=== PATIENT | male | born 1955 | race Caucasian/White ===

== ENCOUNTER 2022-04-20 01:53 | Inpatient (IN) | payer BC, OTHER ==
[~2022-04-20] VITALS: Ht 189.2 cm; Wt 89.7 kg
[2022-04-20] MEDS ORDERED: SODIUM CHLORIDE 0.9% 1,000 ML IV ONE ×2 (02:30)
[2022-04-20] MEDS ORDERED: THIAMINE 100mg/ml INJ (200mg/2ml VIAL) IV ONE (02:30)
[2022-04-20 03:06] LABS: Basophils # (auto) 0 10 ^3/uL (0-0.2); Basophils % (auto) 0.1 % (0.0-2.0); Eosinophils # (auto) 0 10 ^3/uL (0-0.8); Neutrophils # (auto) 10.7 10 ^3/uL (1.6-8.6); Red Cell Distribution Width 15.1 % (11.8-14.3); White Blood Cell 12.1 10^3/uL (4.4-10.8)
[2022-04-20 03:08] LABS: Eosinophils % (auto) 0.2 % (0.0-7.0); Hematocrit 44.5 % (41.0-53.0); Hemoglobin 13.8 g/dL (13.5-17.5); Lymphocytes # (auto) 0.4 10 ^3/uL (0.4-5.4); Lymphocytes % (auto) 3.7 % (10.0-50.0); Mean Corpuscular Hemoglobin 34.3 pg (28.0-32.0); Mean Corpuscular Hgb Conc. 31.1 g/dL (32.0-36.0); Mean Corpuscular Volume 110.1 fL (80.0-100.0); Monocytes # (auto) 0.9 10 ^3/uL (0-1.3); Monocytes % (auto) 7.4 % (0.0-12.0); Neutrophils % (auto) 88.6 % (37.0-80.0); Red Blood Cells 4.04 10^6/uL (4.5-5.90)
[2022-04-20 03:15] LABS: Alanine Aminotransferase 26 U/L (16-61); Albumin 3.4 g/dL (3.4-5.0); Anion Gap 17 (5-15); Aspartate Aminotransferase 30 U/L (15-37); BUN/Creatinine Ratio 15.1; Blood Urea Nitrogen 14 mg/dL (7-18); Calcium 8.4 mg/dL (8.5-10.1); Carbon Dioxide 19 mmol/L (21-32); Chloride 103 mmol/L (98-107); GFR African American 105 mL/min; GFR Non-African American 86 mL/min; Glucose 264 mg/dL (74-106); INR 0.9 (0.9-1.15); Partial Thromboplastin Time 27.6 sec (24.6-33.4); Potassium 3.7 mmol/L (3.5-5.1); Sodium 139 mmol/L (136-145)
[2022-04-20 03:18] LABS: Alkaline Phosphatase 79 U/L (45-117); Bilirubin, Total 0.4 mg/dL (0.2-1.0); Total Protein 6.3 g/dL (6.4-8.2)
[2022-04-20] MEDS ORDERED: HYDROmorphone HCL 2 MG/ML VL/or syr IV ONE (08:15)
[2022-04-20] MEDS ORDERED: PROMETHAZINE HCL 25 MG/ML 1ML IV ONE (08:15)
[2022-04-20 10:46] LABS: Basophils # (auto) 0 10 ^3/uL (0-0.2); Basophils % (auto) 0.2 % (0.0-2.0); Eosinophils # (auto) 0 10 ^3/uL (0-0.8); Eosinophils % (auto) 0.1 % (0.0-7.0); Hematocrit 40.5 % (41.0-53.0); Hemoglobin 13.5 g/dL (13.5-17.5); Lymphocytes # (auto) 0.5 10 ^3/uL (0.4-5.4); Mean Corpuscular Hemoglobin 35.6 pg (28.0-32.0); Mean Corpuscular Hgb Conc. 33.4 g/dL (32.0-36.0); Mean Corpuscular Volume 106.3 fL (80.0-100.0); Monocytes # (auto) 0.8 10 ^3/uL (0-1.3); Monocytes % (auto) 9.8 % (0.0-12.0); Neutrophils % (auto) 83.9 % (37.0-80.0); Nucleated Red Blood Cells % 0.1 %; Red Blood Cells 3.81 10^6/uL (4.5-5.90); Red Cell Distribution Width 14.7 % (11.8-14.3); White Blood Cell 8.3 10^3/uL (4.4-10.8)
[2022-04-20 11:00] LABS: BUN/Creatinine Ratio 17.1; Calcium 8.2 mg/dL (8.5-10.1); Potassium 4.3 mmol/L (3.5-5.1)
[2022-04-20] MEDS ORDERED: LEV25T (11:12)
[2022-04-20] MEDS ORDERED: OMEP-260 PO (11:12)
[2022-04-20] MEDS ORDERED: INSUINJ37 SC (11:12)
[2022-04-20] MEDS ORDERED: LOS25T PO (11:12)
[2022-04-20] MEDS ORDERED: DEXTROSE (50%) 50ML SYRG IV PRN (11:45)
[2022-04-20] MEDS: LACTATED RINGER'S 1,000 ML IV SCH (12:07)
[2022-04-20] MEDS: ACCU-CHEK COMFORT CURVE STRIP VI SCH ×3 (12:12→23:39)
[2022-04-20] MEDS: InsuLIN REG 1unit/0.01ml Soln (100units/ml) SC SCH ×3 (12:27→23:42)
[2022-04-20 12:53] LABS: Blood Alcohol < 3.0 mg/dL (0-5); Cholesterol 207 mg/dL (< 200); Triglycerides 69 mg/dL (< 150)
[2022-04-20 12:55] LABS: HDL Cholesterol 115 mg/dL (40-59); LDL Cholesterol 81 mg/dL (< 100)
[2022-04-20] MEDS ORDERED: LEVO112T4 PO (13:16)
[2022-04-20] MEDS ORDERED: ceFAZolin 1GM/50ML 100 ML IV ONE ×2 (14:23→22:08)
[2022-04-20] MEDS: hydrALAZINE HCL 20 MG/ML VL IV PRN ×2 (14:25→23:35)
[2022-04-20] MEDS ORDERED: SUCCINYLCHOLINE CHLORIDE 20 MG/ML 10ML VIAL IV ONE (15:57)
[2022-04-20] MEDS ORDERED: TRANEXAMIC ACID 20 ML ONE (16:08)
[2022-04-20] MEDS ORDERED: BUPIVACAINE 0.5% P/F INJ 10 ML VIAL ONE (16:08)
[2022-04-20] MEDS ORDERED: LABETALOL HCL 5 MG/ML ML 20ML VIAL IV ONE (16:32)
[2022-04-20] MEDS ORDERED: CALCIUM CHL(10%) 100MG/ML 10ML VIAL IV ONE (17:43)
[2022-04-20] MEDS ORDERED: ALBUMIN 5% 500 ML IV ONE (17:48)
[2022-04-20] MEDS ORDERED: fentaNYL CITRATE 100 MCG/2 ML VL ONE ×3 (18:04→18:28)
[2022-04-20] MEDS ORDERED: MIDAZOLAM HCL 2MG/2ML 2ml VIAL (1mg/ml) ONE (18:04)
[2022-04-20] MEDS ORDERED: ROCURONIUM 10MG/ML 10ML VIAL IV ONE (18:08)
[2022-04-20] MEDS ORDERED: PROPOFOL 10 MG/ML 20 ML IV ONE (18:08)
[2022-04-20] MEDS ORDERED: ONDANSETRON HCL 4 MG/2 ML VIAL ONE (18:15)
[2022-04-20] MEDS ORDERED: NEOSTIGMINE 1 MG/ML INJ (10mg/10ML VIAL) ONE (18:27)
[2022-04-20] MEDS ORDERED: GLYCOPYRROLATE 0.2 MG/ML 1ML VIAL ONE (18:27)
[2022-04-20] MEDS ORDERED: LABETALOL HCL 5 MG/ML 4ML SYRINGE IV ONE (18:54)
[2022-04-20] MEDS ORDERED: METOCLOPRAMIDE HCL 5MG/ml INJ 2ml VIAL IV PRN (19:00)
[2022-04-20] MEDS ORDERED: HYDROmorphone HCL 2 MG/ML VL/or syr IV PRN ×2 (19:00)
[2022-04-20] MEDS: LABETALOL HCL 5 MG/ML 4ML SYRINGE IV PRN ×2 (19:08→19:23)
[2022-04-20 21:48] VITALS: BP 178/84
[2022-04-20] MEDS: ceFAZolin 2 GM in D5W 5% 100 ML IV SCH (22:21)
[2022-04-20] MEDS: LOSARTAN POTASSIUM 25 MG TAB PO SCH (22:21)
[2022-04-20] MEDS ORDERED: ALEN70TA74 PO (22:26)
[2022-04-20] MEDS: PIPERACILLIN-TAZOB 3.375GM 100 ML IV SCH (23:35)
[2022-04-21] MEDS: MORPHINE SULFATE INJ 2 MG/ml SYRG IV PRN ×2 (01:35→21:07)
[2022-04-21] MEDS: HYDROcodone-ACET 5/325MG TAB PO PRN ×3 (03:04→17:23)
[2022-04-21 04:44] VITALS: BP 148/74
[2022-04-21] MEDS ORDERED: ceFAZolin 1GM/50ML 100 ML IV ONE (05:19)
[2022-04-21] MEDS: ceFAZolin 2 GM in D5W 5% 100 ML IV SCH (05:28)
[2022-04-21] MEDS: LACTATED RINGER'S 1,000 ML IV SCH ×2 (05:44→07:45)
[2022-04-21] MEDS: ACCU-CHEK COMFORT CURVE STRIP VI SCH ×3 (06:10→17:22)
[2022-04-21] MEDS: PIPERACILLIN-TAZOB 3.375GM 100 ML IV SCH ×3 (06:47→21:06)
[2022-04-21] MEDS: InsuLIN REG 1unit/0.01ml Soln (100units/ml) SC SCH ×3 (06:47→17:22)
[2022-04-21 07:34] LABS: Basophils # (auto) 0 10 ^3/uL (0-0.2); Basophils % (auto) 0.1 % (0.0-2.0); Eosinophils # (auto) 0 10 ^3/uL (0-0.8); Lymphocytes # (auto) 0.8 10 ^3/uL (0.4-5.4); Monocytes # (auto) 0.9 10 ^3/uL (0-1.3); Neutrophils # (auto) 8.5 10 ^3/uL (1.6-8.6)
[2022-04-21 07:38] LABS: Eosinophils % (auto) 0.1 % (0.0-7.0); Hematocrit 35.3 % (41.0-53.0); Hemoglobin 11.5 g/dL (13.5-17.5); Lymphocytes % (auto) 7.5 % (10.0-50.0); Mean Corpuscular Hemoglobin 35.1 pg (28.0-32.0); Mean Corpuscular Hgb Conc. 32.7 g/dL (32.0-36.0); Mean Corpuscular Volume 107.2 fL (80.0-100.0); Monocytes % (auto) 8.8 % (0.0-12.0); Neutrophils % (auto) 83.5 % (37.0-80.0); Nucleated Red Blood Cells % 0.1 %; Red Blood Cells 3.29 10^6/uL (4.5-5.90); Red Cell Distribution Width 14.6 % (11.8-14.3); White Blood Cell 10.1 10^3/uL (4.4-10.8)
[2022-04-21 07:42] LABS: Calcium 8.5 mg/dL (8.5-10.1); Potassium 4.4 mmol/L (3.5-5.1)
[2022-04-21 07:45] LABS: BUN/Creatinine Ratio 13.3
[2022-04-21 07:48] LABS: Bilirubin, Total 0.7 mg/dL (0.2-1.0); Total Protein 5.8 g/dL (6.4-8.2)
[2022-04-21 08:23] VITALS: BP 138/81
[2022-04-21] MEDS: LOSARTAN POTASSIUM 25 MG TAB PO SCH ×2 (08:32→21:06)
[2022-04-21] MEDS: THIAMINE HCL 100 MG TAB PO SCH (08:32)
[2022-04-21] MEDS: PANTOPRAZOLE 40 MG/10 ML VIAL INJ IV SCH (08:32)
[2022-04-21] MEDS: ENOXAPARIN SOD 40 MG/0.4 ML SYRINGE SC SCH (08:32)
[2022-04-21 12:23] VITALS: BP 164/81
[2022-04-21] MEDS: hydrALAZINE HCL 20 MG/ML VL IV PRN (12:43)
[2022-04-21] MEDS ORDERED: ceFAZolin 2 GM in D5W 5% 100 ML IV SCH (14:00)
[2022-04-21] MEDS ORDERED: INSULIN LANTUS (GLARGINE) 1 /0.01ml (100units/ml) SC ONE (15:30)
[2022-04-21 16:54] VITALS: BP 146/72
[2022-04-21 21:41] VITALS: BP 129/78
[2022-04-22] MEDS: ACCU-CHEK COMFORT CURVE STRIP VI SCH ×3 (00:18→12:06)
[2022-04-22] MEDS: HYDROcodone-ACET 5/325MG TAB PO PRN ×2 (00:18→06:30)
[2022-04-22] MEDS: InsuLIN REG 1unit/0.01ml Soln (100units/ml) SC SCH ×3 (00:22→12:06)
[2022-04-22 05:00] VITALS: BP 157/78
[2022-04-22] MEDS: PIPERACILLIN-TAZOB 3.375GM 100 ML IV SCH (06:30)
[2022-04-22] MEDS ORDERED: INSULIN LANTUS (GLARGINE) 1 /0.01ml (100units/ml) SC SCH (07:00)
[2022-04-22] MEDS: THIAMINE HCL 100 MG TAB PO SCH (08:33)
[2022-04-22] MEDS: PANTOPRAZOLE 40 MG/10 ML VIAL INJ IV SCH (08:34)
[2022-04-22] MEDS: ENOXAPARIN SOD 40 MG/0.4 ML SYRINGE SC SCH (08:34)
[2022-04-22] MEDS: LOSARTAN POTASSIUM 25 MG TAB PO SCH (08:34)
[2022-04-22 09:06] VITALS: BP 146/71
[2022-04-22] MEDS: MORPHINE SULFATE INJ 2 MG/ml SYRG IV PRN (10:49)
[2022-04-22 12:16] VITALS: BP 146/71
[2022-04-22 12:55] VITALS: BP 146/76
== END 2022-04-22 17:07 | DRG 482 ==
LOC: ER 01:53 → EDUNIT# 01:53 → EDBD 01:53 → OVERFLOW 11:34 → EAST 19:00
PROVIDERS: ADMIT Registered Nurse; ATTEND Internal Medicine
PROC: BQ13ZZZ Fluoroscopy of Right Femur (ICD-10-PCS; 2022-04-20)
PROC: 0QS636Z Reposition Right Upper Femur with Intramedullary Internal Fixation Device, Percutaneous Approach (ICD-10-PCS; principal; 2022-04-20 16:15)
DX: S72.141A Displaced intertrochanteric fracture of right femur, initial encounter for closed fracture (principal); E11.65 Type 2 diabetes mellitus with hyperglycemia; Z20.822 Contact with and (suspected) exposure to COVID-19; F10.20 Alcohol dependence, uncomplicated; W18.09XA Striking against other object with subsequent fall, initial encounter; F12.20 Cannabis dependence, uncomplicated; K21.9 Gastro-esophageal reflux disease without esophagitis; M81.0 Age-related osteoporosis without current pathological fracture; I10 Essential (primary) hypertension; K27.9 Peptic ulcer, site unspecified, unspecified as acute or chronic, without hemorrhage or perforation; E03.9 Hypothyroidism, unspecified; Z83.3 Family history of diabetes mellitus; Z87.11 Personal history of peptic ulcer disease; Z82.49 Family history of ischemic heart disease and other diseases of the circulatory system; Z98.1 Arthrodesis status; Y93.89 Activity, other specified; Y92.098 Other place in other non-institutional residence as the place of occurrence of the external cause; Y99.8 Other external cause status
CPT/HCPCS: 36415; 71045; 72170; 72192; 73501; 76000; 80048; 80053; 80061; 80320; 82962; 83036; 84443; 84484; 85025; 85610; 85730; 87426; 93005; 96361; 96374; 96375; 97110; 97116; 97163; 97530; C9113; G0378; J0330; J0690; J1815; J2250; J2405; J2543; J2704; J3490; J7060

== ENCOUNTER 2024-05-24 11:28 | Inpatient (IN) | payer OTHER, MEDICAID ==
[~2024-05-24] VITALS: Ht 190.5 cm; Wt 81.6 kg
[2024-05-24] VITALS (22 sets, daily range): BP systolic 100–123; BP diastolic 45–66; PULSE 58–88; RESP 10–23; TEMP 99; O2SAT 95–99
[~2024-05-24 11:28] MED LIST: ALEN70TA74 PO; INSUINJ37 SC; LEV25T; LEVO112T4 PO; OMEP1CAP70 PO
--- NOTE | 2024-05-24 11:36 | ED.PDOC ---
History of present illness HPI Comments 69 year old male PRINCE presents to the ED with chief complaint of generalized weakness w/ N/V. EMS reports patient has been experiencing nausea and vomiting with associated generalized weakness since yesterday. EMS relays that the patient was found to have a blood glucose level of over 600 on his at home gluc ometer and it read "high" on their own. EMS states patient has been complaining of excess thirst and appears dehydrated. Patient's heart rate was noted to be 115 and had a BP of 162/74. Patient denies any diarrhea, chest pain, SOB, dizziness, fever, or chills. 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, Medications, Allergies Allergies: Coded Allergies: NO KNOWN ALLERGIES (Unverified , 02/02/14) Home Meds Reported Medications Alendronate Sodium (Alendronate Sodium) 70 Mg Tab, 1 TAB PO QWEEKLY, #4 TAB 3 Refills 04/20/22 Levothyroxine Sodium (Levothyroxine Sodium) 112 Mcg Tab, 125 MCG PO DAILY 04/20/22 Levothyroxine Sodium (Levothyroxine Sodium) 25 Mcg Tab 04/20/22 Insulin Glargine (Lantus Solostar) 100 Unit/Ml Inj, SC 04/20/22 Omeprazole (Omeprazole Dr) 20 Mg Cap, 1 CAP PO DAILYPRN 04/20/22 Information Source: Patient, Emergency Med Personnel Mode of Arrival: EMS Timing: Days Duration: Since onset Prehospital treatment: Accucheck, IVF Cove: Other (Weakness) History of: Diabetes, Insulin use Past Medical History PAST MEDICAL HISTORY: Arthritis, DM, HTN, PUD Surgical History: Denies all surgeries Family History Family History: No family hx of DM, No family hx of Heart kenan Social History Smoker: Non-Smoker Alcohol: Denies ETOH Use Drugs: Marijuana Lives In: Home Constitutional: reports: weakness; denies: chills, diaphoresis, fatigue, fever, malaise, sweats, others EENTM: denies: blurred vision, double vision, ear bleeding, ear discharge, ear drainage, ear pain, ear ringing, eye pain, eye redness, hearing loss, mouth pain, mouth swelling, nasal discharge, nose bleeding, nose congestion, nose pain, photophobia, tearing, throat pain, throat swelling, voice changes, others Respiratory: denies: cough, hemoptysis, orthopnea, SOB at rest, shortness of breath, SOB with excertion, stridor, wheezing, others Cardiovascular: denies: chest pain, dizzy spells, diaphoresis, Dyspnea on exertion, edema, irregular heart beat, left arm pain, lightheadedness, palpitations, PND, syncope, others Gastrointestinal: reports: nausea, vomiting; denies: abdomen distended, abdominal pain, blood streaked bowels, constipated, diarrhea, dysphagia, difficulty swallowing, hematemesis, melena, poor appetite, poor fluid intake, rectal bleeding, rectal pain, others Genitourinary: denies: burning, dysuria, flank pain, frequency, hematuria, incontinence, penile discharge, penile sore, pain, testicle pain, testicle swelling, urgency, others Neurological: denies: dizziness, fainting, headache, left sided numbness, left sided weakness, numbness, paresthesia, pre-existing deficit, right sided numbness, right sided weakness, seizure, speech problems, tingling, tremors, weakness, others Musculoskeletal: denies: back pain, gout, joint pain, joint swelling, muscle pain, muscle stiffness, neck pain, others Integumetry: denies: bruises, change in color, change in hair/nails, dryness, laceration, lesions, lumps, rash, wounds, others Allergic/Immunocompromised: denies: Difficulty Healing, Frequent Infections, Hives, Itching, others Hematologic/Lymphatic: denies: anemia, blood clots, easy bleeding, easy bruising, swollen glands, others Endocrine: denies: excessive hunger, excessive sweating, excessive thirst, excessive urination, flushing, intolerance to cold, intolerance to heat, unexplained weight gain, unexplained weight loss, others Psychiatric: denies: anxiety, bipolar disorder, depression, hopeless, panic disorder, schizophrenia, sleepless, suicidal, others All Other Systems: Reviewed and Negative Physical Exam General Appearance: Moderate Distress, Normal HEENT: Normal ENT Inspection, PERRL/EOMI Neck: Full Range of Motion, Non-Tender, Normal, Normal Inspection Respiratory: Accessory Muscle Use, Chest Non-Tender, No Accessory Muscle Use Cardiovascular: No Edema, No JVD, No Murmur, No Gallop, Normal Peripheral Pulses, Tachycardia Breast Exam: Deferred Gastrointestinal: No Organomegaly, Non Tender, No Pulsatile Mass, Normal Bowel Sounds, Soft Genitalia: Deferred Pelvic: Deferred Rectal: Deferred Extremities: No calf tenderness, Normal capillary refill, Normal inspection, Normal range of motion, Non-tender, No pedal edema Musculoskeletal : Apperance: Normal Neurologic: Alert, house wirer II-XII nml as Tested, No Motor Deficits, Normal Affect, Normal Mood, No Sensory Deficits Cerebellar Function: NOT DONE Reflexes: NOT DONE Skin: Dry, Normal Color, Warm Peripheral Pulses: 3+ Radial (R), 3+ Radial (L) Lymphatic: No Adenopathy Was a procedure done? Was a procedure done?: No Differential Diagnosis (DM) Differential Diagnosis: DKA, Electrolyte Abnormality X-Ray, Labs, Meds, VS Vital Signs Date Time Temp Pulse Resp B/P (MAP) Pulse Ox O2 Delivery O2 Flow Rate FiO2 05/24/24 11:33 113 Lab Test 05/24/24 12:11 05/24/24 11:59 Range/Units POC Glucose > 600 *H 70-106 mg/dl White Blood Count 27.2 H 4.4-10.8 10^3/uL Red Blood Count 3.98 L 4.5-5.90 10^6/uL Hemoglobin 12.8 L 13.5-17.5 g/dL Hematocrit 42.4 41.0-53.0 % Mean Corpuscular Volume 106.6 H 80.0-100.0 fL Mean Corpuscular Hemoglobin 32.2 H 28.0-32.0 pg Mean Corpuscular Hemoglobin Concent 30.2 L 32.0-36.0 g/dL Red Cell Distribution Width 15.3 H 11.8-14.3 % Platelet Count 380 140-450 10^3/uL Mean Platelet Volume 7.1 6.9-10.8 fL Neutrophils (%) (Auto) 37.0-80.0 % Lymphocytes (%) (Auto) 10.0-50.0 % Monocytes (%) (Auto) 0.0-12.0 % Basophils (%) (Auto) 0.0-2.0 % Neutrophils # (Auto) 1.6-8.6 10 ^3/uL Lymphocytes # (Auto) 0.4-5.4 10 ^3/uL Monocytes # (Auto) 0-1.3 10 ^3/uL Differential Total Cells Counted Pending Neutrophils % (Manual) Pending Band Neutrophils % (Manual) Pending Lymphocytes % (Manual) Pending Monocytes % (Manual) Pending Eosinophils % (Manual) Pending Basophils % (Manual) Pending Metamyelocytes % (manual) Pending Myelocytes % (Manual) Pending Promyelocytes % (Manual) Pending Blast Cells % (Manual) Pending Reactive Lymphocytes Pending Platelet Estimate Pending Sodium Level Pending Potassium Level Pending Chloride Level Pending Carbon Dioxide Level Pending Anion Gap Pending Blood Urea Nitrogen Pending Creatinine Pending Glomerular Filtration Rate Calc Pending BUN/Creatinine Ratio Pending Serum Glucose Pending Calcium Level Pending Troponin I High Sensitivity Pending Beta-Hydroxybutyric Acid Pending Current Medications Medications (Trade) Dose Ordered Sig/Sukhdev Route Start Time Stop Time Status Last Admin Diagnostic Test (Pha) (Accu-Chek Comfort Curve T) 1 strip Q90MIN 05/24/24 12:00 05/24/24 12:12 Patient alert. Increased respiration. Blood sugar high. Tachycardia. WBC elevated. Establish intravenous access. Was given fluids. Was given insulin. DKA. ABG does show acidosis. Explained to the patient. Continue cardiac monitoring. Time of 1ST Reevaluation: 12:32 Reevaluation 1ST: Unchanged Patient Education/Counseling: Diagnosis, Treatment Family Education/Counseling: No Family Present Additional Information I reviewed the following notes from patient's past medical encounters: 04/20/22 for rt hip fracture The following tests were ordered, and results were reviewed by me: CBC, BMP, UA, I reviewed and agreed with the following test results read by other providers: Additional Information was gathered from interviewing the following independent historians: EMS I discussed treatment and results with medical personnel. Departure 1 Departure Time of Disposition: 12:26 Impression: Primary Impression: Diabetic ketoacidosis Qualified Codes: E13.10 - Other specified diabetes mellitus with ketoacidosis without coma Disposition: ADMITTED INPATIENT Admit to: Med Surg Condition: Guarded Critical Care Note Critical Care Time?: Yes (90 min-critical care time only) Stability Stability form required: No Heart Score Heart Score: Heart Score Response (Comments) Value History N/A 0 EKG N/A 0 Age N/A 0 Risk Factors N/A 0 Troponin N/A 0 Total 0 I personally scribed for IESHA WILKERSON MD ([email or web address]) on 05/24/24 at 11:36. Electronically submitted by Sgaar Mcginnis ([email or web address]). IESHA WILKERSON MD May 24, 2024 11:36
[2024-05-24] MEDS ORDERED: DEXTROSE (50%) 50ML SYRG IV PRN (11:45)
[2024-05-24] MEDS: SODIUM CHLORIDE 0.9% 1,000 ML IV ONE ×4 (11:45)
--- NOTE | 2024-05-24 11:45 | ECG ---
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
[2024-05-24] MEDS: ACCU-CHEK COMFORT CURVE STRIP VI SCH (12:12)
[2024-05-24 12:20] LABS: Hematocrit 42.4 % (41.0-53.0); Hemoglobin 12.8 g/dL (13.5-17.5); Mean Corpuscular Hemoglobin 32.2 pg (28.0-32.0); Mean Corpuscular Hgb Conc. 30.2 g/dL (32.0-36.0); Mean Corpuscular Volume 106.6 fL (80.0-100.0); Platelet Count (auto) 380 10^3/uL (140-450); Red Blood Cells 3.98 10^6/uL (4.5-5.90); Red Cell Distribution Width 15.3 % (11.8-14.3); White Blood Cell 27.2 10^3/uL (4.4-10.8)
[2024-05-24 12:23] LABS: Basophils % (manual) 0 (0.0-2.0); Blast Cells 0; Eosinophils % (manual) 0 (0-7); Metamyelocytes % 0; Myelocytes % 0; Promyelocytes % 0; Reactive Lymphocytes 0
[2024-05-24 12:32] LABS: Potassium 4.9 mmol/L (3.5-5.1)
[2024-05-24 12:33] LABS: Anion Gap 27.00001 (5-15)
[2024-05-24] MEDS: INSULIN LANTUS (GLARGINE) 1 /0.01ml (100units/ml) SC ONE (12:34)
[2024-05-24] MEDS: INSULIN DRIP 100 UNIT/100ML 100 ML IV SCH (12:34)
[2024-05-24 12:38] LABS: BUN/Creatinine Ratio 19.8 (10.0-20.0)
[2024-05-24 12:47] LABS: Blood Urea Nitrogen 61 mg/dL (9-23); Chloride 96 mmol/L (98-107); Sodium 133 mmol/L (136-145)
--- NOTE | 2024-05-24 12:47 | DVH ---
CHEST RADIOGRAPH Indication: sob Technique: Single frontal view of the chest was obtained COMPARISON: CHEST PORTABLE on DOS: 04/20/22, CXRP on DOS: 04/20/22 FINDINGS: Lines and Tubes: None Lungs: Clear Pleura: No effusion. No pneumothorax. Cardiomediastinal contours: Unremarkable Bones: Cervical spine fixation hardware. IMPRESSION: No acute disease.
[2024-05-24 12:49] LABS: Band Neutrophils % (manual) 1; Carbon Dioxide < 10 mmol/L (20-31); Lymphocytes % (manual) 2 (10.0-50.0); Monocytes % (manual) 4 (0-12); Platelet Estimate Adequate
[2024-05-24 12:50] LABS: Glucose 740 mg/dL (74-106)
[2024-05-24 13:17] LABS: Base Excess -21.2 mmol/L (-2.0-3.0)
[2024-05-24] MEDS: PIPERACILLIN-TAZOB 3.375GM 100 ML IV ONE (13:59)
[2024-05-24] MEDS ORDERED: NITROGLYCERIN 0.4 MG SL TAB SL PRN (14:00)
[2024-05-24] MEDS: SODIUM CHLORIDE 0.9% 1,000 ML IV SCH (14:00)
[2024-05-24] MEDS ORDERED: MORPHINE SULFATE INJ 2 MG/ml SYRG IV PRN (14:00)
[2024-05-24] MEDS ORDERED: DOCUSATE SOD 100 MG CAP PO PRN (14:00)
[2024-05-24] MEDS ORDERED: ACETAMINOPHEN 325 MG TAB PO PRN (14:00)
[2024-05-24] MEDS ORDERED: HYDROcodone-ACET 5/325MG TAB PO PRN (14:00)
[2024-05-24 14:17] LABS: Lactic Acid w/Reflex 3.2 mmol/L (0.4-2.0)
[2024-05-24 16:33] LABS: Urine Bacteria None Seen /hpf (None Seen); Urine Blood 1+ /uL (Negative); Urine Clarity Clear (Clear); Urine Color Light-Yellow (Yellow); Urine Hyaline Cast FEW /lpf (0 - 2); Urine Protein, UAD 1+ (Negative); Urine Specific Gravity 1.016 (1.001-1.035); Urine Squamous Epithelial Cell FEW /hpf (<5); Urine Urobilinogen Normal (Negative); Urine WBC 8 /HPF (0-3)
[2024-05-24] MEDS: ENOXAPARIN SOD 30 MG/0.3 ML SYRINGE SC SCH (18:00)
[2024-05-24] MEDS: PIPERACILLIN-TAZOB 3.375GM 100 ML IV SCH (22:07)
[2024-05-25] VITALS (31 sets, daily range): BP systolic 94–145; BP diastolic 42–69; PULSE 47–78; RESP 8–23; TEMP 97.8–99.5; O2SAT 96–100
[2024-05-25] MEDS: D5W/SOD CHL 0.45% 1,000 ML IV SCH (00:30)
[2024-05-25 01:34] LABS: Potassium 3.7 mmol/L (3.5-5.1); Sodium 140 mmol/L (136-145)
[2024-05-25 01:35] LABS: Anion Gap 12 (5-15)
[2024-05-25 01:40] LABS: BUN/Creatinine Ratio 18.3 (10.0-20.0); Glucose 106 mg/dL (74-106)
[2024-05-25 01:55] LABS: Blood Urea Nitrogen 41 mg/dL (9-23); Calcium 8.5 mg/dL (8.7-10.4); Carbon Dioxide 17 mmol/L (20-31); Chloride 111 mmol/L (98-107)
[2024-05-25 03:51] LABS: Basophils # (auto) 0 10 ^3/uL (0-0.2); Basophils % (auto) 0.3 % (0.0-2.0); Eosinophils # (auto) 0 10 ^3/uL (0-0.8); Eosinophils % (auto) 0.1 % (0.0-7.0); Hematocrit 35.2 % (41.0-53.0); Hemoglobin 11.5 g/dL (13.5-17.5); Lymphocytes # (auto) 1.3 10 ^3/uL (0.4-5.4); Lymphocytes % (auto) 8.7 % (10.0-50.0); Mean Corpuscular Hemoglobin 32.2 pg (28.0-32.0); Mean Corpuscular Hgb Conc. 32.7 g/dL (32.0-36.0); Mean Corpuscular Volume 98.5 fL (80.0-100.0); Monocytes # (auto) 0.9 10 ^3/uL (0-1.3); Monocytes % (auto) 6.2 % (0.0-12.0); Neutrophils # (auto) 12.5 10 ^3/uL (1.6-8.6); Neutrophils % (auto) 84.7 % (37.0-80.0); Nucleated Red Blood Cells % 0.2 %; Platelet Count (auto) 268 10^3/uL (140-450); Red Blood Cells 3.57 10^6/uL (4.5-5.90); Red Cell Distribution Width 13.9 % (11.8-14.3); White Blood Cell 14.8 10^3/uL (4.4-10.8)
[2024-05-25 04:08] LABS: Alanine Aminotransferase 37 U/L (7-40); Albumin 3.9 g/dL (3.2-4.8); Alkaline Phosphatase 95 U/L (46-116); Anion Gap 11 (5-15); Aspartate Aminotransferase 23 U/L (13-40); BUN/Creatinine Ratio 20.5 (10.0-20.0); Bilirubin, Total 0.5 mg/dL (0.2-1.0); Potassium 3.7 mmol/L (3.5-5.1); Sodium 141 mmol/L (136-145)
[2024-05-25 04:37] LABS: Blood Urea Nitrogen 45 mg/dL (9-23); Calcium 8.6 mg/dL (8.7-10.4); Carbon Dioxide 20 mmol/L (20-31); Chloride 110 mmol/L (98-107); Glucose 150 mg/dL (74-106); Total Protein 5.5 g/dL (5.7-8.2)
[2024-05-25 06:37] LABS: Alanine Aminotransferase 36 U/L (7-40); Albumin 3.8 g/dL (3.2-4.8); Alkaline Phosphatase 93 U/L (46-116); Anion Gap 11 (5-15); Aspartate Aminotransferase 24 U/L (13-40); BUN/Creatinine Ratio 24.9 (10.0-20.0); Bilirubin, Total 0.5 mg/dL (0.2-1.0); Sodium 141 mmol/L (136-145)
[2024-05-25 06:40] LABS: Blood Urea Nitrogen 51 mg/dL (9-23); Calcium 8.4 mg/dL (8.7-10.4); Carbon Dioxide 18 mmol/L (20-31); Chloride 112 mmol/L (98-107); Glucose 153 mg/dL (74-106); Potassium 3.4 mmol/L (3.5-5.1)
[2024-05-25] MEDS: ATROPINE SULF 1 MG/10ml SYR IV ONE (07:14)
[2024-05-25] MEDS: InsuLIN REG 1unit/0.01ml Soln (100units/ml) SC SCH (08:25)
[2024-05-25] MEDS: ACCU-CHEK COMFORT CURVE STRIP VI SCH (08:25)
[2024-05-25] MEDS: SODIUM CHLORIDE 0.9% 1,000 ML IV SCH (08:29)
[2024-05-25] MEDS: diphenhdrAMINE-ZINC ACETATE 1 APPLIC APPL TOP ONE (08:54)
[2024-05-25] MEDS: ONDANSETRON HCL 4 MG/2 ML VIAL IV PRN (09:25)
[2024-05-25] MEDS: MORPHINE SULFATE INJ 2 MG/ml SYRG IV PRN (09:39)
[2024-05-25] MEDS ORDERED: INSULIN LANTUS (GLARGINE) 1 /0.01ml (100units/ml) SC SCH ×2 (10:00→22:00)
[2024-05-25] MEDS: POTASSIUM CHL 20 Meq TABLET PO ONE (10:12)
[2024-05-25] MEDS ORDERED: POTASSIUM CHL 20 Meq TABLET PO ONE (10:13)
[2024-05-25 11:04] LABS: Phosphorus 2.4 mg/dL (2.4-5.1)
[2024-05-25 11:05] LABS: Magnesium 1.8 mg/dL (1.6-2.6)
--- NOTE | 2024-05-25 11:31 | DVHSR ---
APPROVED REPORT EXAM: Two-dimensional and M-mode echocardiogram with Doppler and color Doppler. Blood Pressure: 130/46 mmHg INDICATION Elevated troponin RISK FACTORS Height: , Weight: DIMENSIONS LVDd4.6 (3.8-5.7cm)LA (2D)3.9 (1.9-4.0cm)Aortic Root3.5 (2.0-3.7cm) LVDs3.5 (2.5-4.0cm)LA (MM) (1.9-4.0cm)Aortic Cusp Exc1.7 (1.5-2.0cm) EF (%) 50.0 (55-70%)Rt. Atrium4.1 (1.9-4.0cm)Asc. Aorta cm IVSd1.2 (0.7-1.1cm)RV (D) (1.8-2.4cm) PWd1.0 (0.7-1.1cm) Mitral Valve MitralMitral Stenosis E wave0.73m/sMV Mean GR.mmHg A wave0.80m/sMV Peak GR.mmHg E/A ratio0.92D MVAcm2 DECEL [id number] 1/2 Timems Aortic Valve Aortic ValveAortic Stenosis V10.72m/Beto Mean GR.3mmHg V21.23m/Beto Peak GR.6mmHg LVOT Diameter2.1 (1.8-2.4cm)Doppler AVA2.03cm2 Other Information Technically limited study due to body habitus and patient position. Conclusion [id number]% by visual estimate normal rv function mild enlargement normal atria no severe valve abnormalities noted
[2024-05-25 12:02] LABS: Potassium 3.9 mmol/L (3.5-5.1); Sodium 140 mmol/L (136-145)
[2024-05-25 12:03] LABS: Anion Gap 12 (5-15); Carbon Dioxide 20 mmol/L (20-31)
[2024-05-25 12:04] LABS: Calcium 8.8 mg/dL (8.7-10.4)
[2024-05-25 12:09] LABS: BUN/Creatinine Ratio 20.7 (10.0-20.0); Blood Urea Nitrogen 40 mg/dL (9-23); Chloride 108 mmol/L (98-107); Glucose 230 mg/dL (74-106)
--- NOTE | 2024-05-25 16:48 | DVHHP2 ---
History of Present Illness Reason for Visit: Intractable nausea and vomiting History of Present Illness 69-year-old male with a known history of insulin-dependent diabetes mellitus, hypothyroidism, osteoporosis, GERD initially presented to the hospital with intractable nausea and vomiting for last few days found to have diabetic ketoacidosis. Patient was started on insulin drip. Patient is currently denies any nausea and vomiting tolerating diet. Patient's heart rate overnight was in 40s to 50s, patient is currently does not take any beta olivia. Patient denies any chest pain palpitation. Cardiovascular: hyperipidemia Endocrine: Diabetes, Hypothyroidism Past Surgical History: None Family History: None Smoke: No ALCOHOL: none Review of Systems Review of Systems Twelve review of system are negative besides mentioned above. Allergies: Coded Allergies: NO KNOWN ALLERGIES (Unverified , 02/02/14) Medications Current Medications Medications Dose Ordered Sig/Sukhdev Route Start Time Stop Time Status Last Admin Dose Admin Acetaminophen/ Hydrocodone Bitart 1 tab Q4HP PRN PO 05/24/24 14:00 Ondansetron HCl 4 mg Q4HP PRN IV 05/24/24 14:00 05/25/24 09:25 4 MG Docusate Sodium 100 mg BIDPRN PRN PO 05/24/24 14:00 Acetaminophen 650 mg Q6HP PRN PO 05/24/24 14:00 Morphine Sulfate 2 mg Q4HPRN PRN IV 05/24/24 14:00 05/25/24 09:39 2 MG Enoxaparin Sodium 30 mg DAILY SC 05/24/24 14:00 05/25/24 08:28 30 MG Nitroglycerin 0.4 mg Q5MINP PRN SL 05/24/24 14:00 Morphine Sulfate 2 mg Q30M PRN IV 05/24/24 14:00 Piperacillin Sod/ Tazobactam Sod 100 ml @ 25 mls/hr Q12HR IV 05/24/24 22:00 05/25/24 09:25 25 MLS/HR Sodium Chloride 1,000 ml @ 100 mls/hr Q10H IV 05/25/24 07:00 05/25/24 15:43 100 MLS/HR Diagnostic Test (Pha) 1 strip IQ4HR 05/25/24 08:00 05/25/24 15:20 1 STRIP Insulin Human Regular IQ4HR SC 05/25/24 08:00 05/25/24 15:17 3 UNITS Insulin Glargine 15 units BID@0700,2200 SC 05/25/24 22:00 Exam Vital Signs Vital Signs Date Time Temp Pulse Resp B/P (MAP) Pulse Ox O2 Delivery O2 Flow Rate FiO2 05/25/24 14:01 61 20 110/61 (77) 94 05/25/24 07:41 Room Air* 0 21 05/25/24 07:38 97.8 97.8 Exam HEENT pupils are reactive Neck is supple CV is S1-S2 regular rate and rhythm Respiratory are clear GI positive bowel sound Extremity no edema 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 motor 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 Labs/Xrays Labs Test 05/25/24 15:13 05/25/24 11:34 05/25/24 06:02 05/25/24 03:23 Range/Units POC Glucose 153 H 70-106 mg/dl Sodium Level 140 136-145 mmol/L Potassium Level 3.9 3.5-5.1 mmol/L Chloride Level 108 H 98-107 mmol/L Carbon Dioxide Level 20 20-31 mmol/L Anion Gap 12 5-15 Blood Urea Nitrogen 40 #H 9-23 mg/dL Creatinine 1.93 H 0.700-1.30 mg/dL Glomerular Filtration Rate Calc 37 >90 mL/min BUN/Creatinine Ratio 20.7 H 10.0-20.0 Serum Glucose 230 H 74-106 mg/dL Calcium Level 8.8 8.7-10.4 mg/dL Phosphorus Level 2.4 2.4-5.1 mg/dL Magnesium Level 1.8 1.6-2.6 mg/dL Total Bilirubin 0.5 0.2-1.0 mg/dL Aspartate Amino Transferase (AST) 24 13-40 U/L Alanine Aminotransferase (ALT) 36 7-40 U/L Alkaline Phosphatase 93 46-116 U/L Total Protein 5.0 L 5.7-8.2 g/dL Albumin 3.8 3.2-4.8 g/dL White Blood Count 14.8 #H 4.4-10.8 10^3/uL Red Blood Count 3.57 L 4.5-5.90 10^6/uL Hemoglobin 11.5 L 13.5-17.5 g/dL Hematocrit 35.2 #L 41.0-53.0 % Mean Corpuscular Volume 98.5 # 80.0-100.0 fL Mean Corpuscular Hemoglobin 32.2 H 28.0-32.0 pg Mean Corpuscular Hemoglobin Concent 32.7 32.0-36.0 g/dL Red Cell Distribution Width 13.9 11.8-14.3 % Platelet Count 268 140-450 10^3/uL Mean Platelet Volume 6.9 6.9-10.8 fL Neutrophils (%) (Auto) 84.7 H 37.0-80.0 % Lymphocytes (%) (Auto) 8.7 L 10.0-50.0 % Monocytes (%) (Auto) 6.2 0.0-12.0 % Eosinophils (%) (Auto) 0.1 0.0-7.0 % Basophils (%) (Auto) 0.3 0.0-2.0 % Neutrophils # (Auto) 12.5 H 1.6-8.6 10 ^3/uL Lymphocytes # (Auto) 1.3 0.4-5.4 10 ^3/uL Monocytes # (Auto) 0.9 0-1.3 10 ^3/uL Eosinophils # (Auto) 0 0-0.8 10 ^3/uL Basophils # (Auto) 0 0-0.2 10 ^3/uL Nucleated Red Blood Cells 0.2 % Lactic Acid Level 0.8 0.4-2.0 mmol/L Test 05/24/24 16:50 05/24/24 16:28 05/24/24 12:02 05/24/24 11:59 Range/Units Troponin I High Sensitivity 245 *H </=54 ng/L Urine Color Light-yellow Yellow Urine Clarity Clear Clear Urine pH 5.0 5.0-9.0 Urine Specific [place] 1.016 1.001-1.035 Urine Protein 1+ H Negative Urine Ketones 2+ H Negative Urine Blood 1+ H Negative /uL Urine Nitrite Negative Negative Urine Bilirubin Negative Negative Urine Urobilinogen Normal Negative mg/dL Urine Leukocyte Esterase Negative Negative /uL Urine RBC 1 0 - 3 /hpf Urine Microscopic WBC 8 H 0-3 /HPF Urine Squamous Epithelial Cells Few <5 /hpf Urine Bacteria None seen None Seen /hpf Urine Hyaline Casts Few 0 - 2 /lpf Urine Glucose 4+ H Normal mg/dL Blood Gas Specimen Type Arterial Blood Gas Sample Site Right radial Blood Gas Patient Temperature 37.0 Arterial Blood Date Drawn [id number] Arterial Blood pH 7.173 *L 7.350-7.450 Arterial Blood Partial Pressure CO2 13.1 *L 35.0-48.0 mmHg Arterial Blood Partial Pressure O2 121.6 H 83.0-108.0 mmHg Arterial Blood HCO3 4.7 L 21.0-28.0 mmol/L Arterial Blood Oxygen Saturation 97.9 94.0-98.0 % Arterial Blood Base Excess -21.2 L -2.0-3.0 mmol/L Arterial Blood Oxyhemoglobin 96.8 94.0-98.0 % Arterial Blood Carboxyhemoglobin 0.5 0.5-1.5 % Arterial Blood Methemoglobin 0.6 0.0-1.5 % Jadiel Test Yes Blood Gas Total Hemoglobin 13.70 13.5-17.5 g/dL Blood Gas Modality Room air FiO2 % 21.0 Blood Gas Critical Value Read Back Yes Blood Gas Notified Whom [place] Blood Gas Notified Time [id number] Blood Gas Notified By Tube Builder Airplane aida fabian Differential Total Cells Counted 100.0 100 Neutrophils % (Manual) 93 H 37.0-80.0 Band Neutrophils % (Manual) 1 Lymphocytes % (Manual) 2 L 10.0-50.0 Monocytes % (Manual) 4 0-12 Eosinophils % (Manual) 0 0-7 Basophils % (Manual) 0 0.0-2.0 Metamyelocytes % (manual) 0 Myelocytes % (Manual) 0 Promyelocytes % (Manual) 0 Blast Cells % (Manual) 0 Reactive Lymphocytes 0 Platelet Estimate Adequate Beta-Hydroxybutyric Acid > 4.500 H < 0.4 mmol/L Microbiology Date/Time Source Procedure Growth Status 05/24/24 13:40 Blood Blood Culture - Preliminary NO GROWTH AFTER 24 HOURS OF INCUBATION. Resulted Assessment/Plan Assessment/Plan 69-year-old male with a known history of insulin-dependent diabetes mellitus, hypothyroidism, osteoporosis, GERD initially presented to the hospital with a vent intractable nausea and vomiting found to have 1. Intractable nausea and vomiting secondary to diabetic ketoacidosis 2. Diabetic ketoacidosis 3. Leukocytosis likely reactive secondary to diabetic ketoacidosis 4. Metabolic acidosis secondary to DKA as well as lactic acidosis 5. Lactic acidosis ruled out sepsis 6. Bradycardia asymptomatic, check TSH and free T4 7. Hypothyroidism 8. Osteoporosis 9. Insulin-dependent diabetes mellitus, currently in diabetic ketoacidosis -patient is currently off the insulin drip, we will check 2D echo cardiology consultation for bradycardia, check TSH and free T4 -increase insulin Lantus to 15 units twice a day, Accu-Cheks AC and HS and low- dose insulin sliding scale. -home health home safety evaluation upon discharge. Plan discussed with: Patient, Spouse My Orders Orders - SHUKRI MENDES MD Procedure Category Date Status Time Insulin Lantus PHA 05/25/24 In Process (Glargine) (Lantus) 22:00 Echo Abraham Complete BD 05/25/24 Transmitted 10:55 Date of Service: May 25, 2024 Billing Provider: SHUKRI MENDES MD Common Visit Codes: NOT BILLABLE SHUKRI MENDES MD May 25, 2024 16:48
--- NOTE | 2024-05-25 19:17 | DVHINCON2 ---
Date Seen: May 25, 2024 Referring Physician Nayely Reason for Consultation Palpitations. Tachycardia. History of Present Illness 69-year-old gentleman with a history diabetes presents with nausea and vomiting. He was also having questionably low back pain. He is a diabetic with hypothyroidism and osteoporosis. His states that several years ago he was taken to [facility] where he had cardiac arrest. He was in the hospital over a month and required tracheostomy. Does have a history previous stroke it is not clear what was the precipitating cause of his cardiac arrest and time. She is a very historian he has a very poor memory. He does have history nausea and vomiting but denies any chest pain. He has had no arrhythmias. Patient states he saw cardiology several months ago and a stress test was performed. She states he was told everything was normal. Past Medical History Diabetes mellitus and hypertension. COPD. Dementia. History of questionable cardiac arrest in the past. Past surgical history significant for hip repair. Past Surgical History History of hip repair. Family History: Family history: Cardiovascular disease Family history: Diabetes mellitus Allergies: Coded Allergies: NO KNOWN ALLERGIES (Unverified , 02/02/14) Home Meds Reported Medications Alendronate Sodium (Alendronate Sodium) 70 Mg Tab, 1 TAB PO QWEEKLY, #4 TAB 3 Refills 04/20/22 Levothyroxine Sodium (Levothyroxine Sodium) 112 Mcg Tab, 125 MCG PO DAILY 04/20/22 Levothyroxine Sodium (Levothyroxine Sodium) 25 Mcg Tab 04/20/22 Insulin Glargine (Lantus Solostar) 100 Unit/Ml Inj, SC 04/20/22 Omeprazole (Omeprazole Dr) 20 Mg Cap, 1 CAP PO DAILYPRN 04/20/22 Current Medications Current Medications Medications (Trade) Dose Ordered Sig/Sukhdev Route PRN Reason Start Time Stop Time Status Last Admin Insulin Glargine (Lantus) 15 units DAILY SC 05/25/24 10:00 05/25/24 07:12 DC Piperacillin Sod/ Tazobactam Sod 100 ml @ 25 mls/hr Q12HR IV 05/24/24 22:00 05/25/24 09:25 Dextrose/Sodium Chloride 1,000 ml @ 150 mls/hr Q6H40M IV 05/25/24 00:30 05/25/24 07:12 DC 05/25/24 00:30 Sodium Chloride 1,000 ml @ 100 mls/hr Q10H IV 05/25/24 07:00 05/25/24 15:43 Diagnostic Test (Pha) (Accu-Chek Comfort Curve T) 1 strip IQ4HR 05/25/24 08:00 05/25/24 15:20 Insulin Human Regular (InsuLIN R) IQ4HR SC 05/25/24 08:00 05/25/24 15:17 Insulin Glargine (Lantus) 15 units BID@0700,2200 SC 05/25/24 22:00 Review of Systems Review of systems is difficult to obtain. The patient is a very poor historian. does not contribute much to his review of systems other than he has been weak and short of breath times. He does not complain of much otherwise at home. No constitutional symptoms per . Cardiac and respiratory ENT as noted above. GI and muscular as noted. Hematologically and oncological negative. Vital Signs Vital Signs Date Time Temp Pulse Resp B/P (MAP) Pulse Ox O2 Delivery O2 Flow Rate FiO2 05/25/24 17:00 57 14 125/69 (87) 97 05/25/24 07:41 Room Air* 0 21 05/25/24 07:38 97.8 97.8 Physical Exam His blood pressure is as noted. HEENT examination reveals an atraumatic and normocephalic skull. His pupils are sluggish. Already well hydrated. Trachea central neck is supple thyroid is not palpable no jugular distention no bruits. Lungs reveal good air entry. Heart exam reveals regular S1-S2 soft S4. Abdominal examination is unremarkable. Extremities reveal adequate perfusion without clubbing or cyanosis no edema. Neurologically intact. Integumentary is otherwise within normal limits. Neurologically intact. Labs/Diagnostic Data Labs Test 05/25/24 15:13 05/25/24 11:34 05/25/24 06:02 05/25/24 03:23 Range/Units POC Glucose 153 H 70-106 mg/dl Sodium Level 140 136-145 mmol/L Potassium Level 3.9 3.5-5.1 mmol/L Chloride Level 108 H 98-107 mmol/L Carbon Dioxide Level 20 20-31 mmol/L Anion Gap 12 5-15 Blood Urea Nitrogen 40 #H 9-23 mg/dL Creatinine 1.93 H 0.700-1.30 mg/dL Glomerular Filtration Rate Calc 37 >90 mL/min BUN/Creatinine Ratio 20.7 H 10.0-20.0 Serum Glucose 230 H 74-106 mg/dL Calcium Level 8.8 8.7-10.4 mg/dL Phosphorus Level 2.4 2.4-5.1 mg/dL Magnesium Level 1.8 1.6-2.6 mg/dL Total Bilirubin 0.5 0.2-1.0 mg/dL Aspartate Amino Transferase (AST) 24 13-40 U/L Alanine Aminotransferase (ALT) 36 7-40 U/L Alkaline Phosphatase 93 46-116 U/L Total Protein 5.0 L 5.7-8.2 g/dL Albumin 3.8 3.2-4.8 g/dL White Blood Count 14.8 #H 4.4-10.8 10^3/uL Red Blood Count 3.57 L 4.5-5.90 10^6/uL Hemoglobin 11.5 L 13.5-17.5 g/dL Hematocrit 35.2 #L 41.0-53.0 % Mean Corpuscular Volume 98.5 # 80.0-100.0 fL Mean Corpuscular Hemoglobin 32.2 H 28.0-32.0 pg Mean Corpuscular Hemoglobin Concent 32.7 32.0-36.0 g/dL Red Cell Distribution Width 13.9 11.8-14.3 % Platelet Count 268 140-450 10^3/uL Mean Platelet Volume 6.9 6.9-10.8 fL Neutrophils (%) (Auto) 84.7 H 37.0-80.0 % Lymphocytes (%) (Auto) 8.7 L 10.0-50.0 % Monocytes (%) (Auto) 6.2 0.0-12.0 % Eosinophils (%) (Auto) 0.1 0.0-7.0 % Basophils (%) (Auto) 0.3 0.0-2.0 % Neutrophils # (Auto) 12.5 H 1.6-8.6 10 ^3/uL Lymphocytes # (Auto) 1.3 0.4-5.4 10 ^3/uL Monocytes # (Auto) 0.9 0-1.3 10 ^3/uL Eosinophils # (Auto) 0 0-0.8 10 ^3/uL Basophils # (Auto) 0 0-0.2 10 ^3/uL Nucleated Red Blood Cells 0.2 % Lactic Acid Level 0.8 0.4-2.0 mmol/L Test 05/24/24 16:50 05/24/24 16:28 05/24/24 12:02 05/24/24 11:59 Range/Units Troponin I High Sensitivity 245 *H </=54 ng/L Urine Color Light-yellow Yellow Urine Clarity Clear Clear Urine pH 5.0 5.0-9.0 Urine Specific [place] 1.016 1.001-1.035 Urine Protein 1+ H Negative Urine Ketones 2+ H Negative Urine Blood 1+ H Negative /uL Urine Nitrite Negative Negative Urine Bilirubin Negative Negative Urine Urobilinogen Normal Negative mg/dL Urine Leukocyte Esterase Negative Negative /uL Urine RBC 1 0 - 3 /hpf Urine Microscopic WBC 8 H 0-3 /HPF Urine Squamous Epithelial Cells Few <5 /hpf Urine Bacteria None seen None Seen /hpf Urine Hyaline Casts Few 0 - 2 /lpf Urine Glucose 4+ H Normal mg/dL Blood Gas Specimen Type Arterial Blood Gas Sample Site Right radial Blood Gas Patient Temperature 37.0 Arterial Blood Date Drawn Arterial Blood pH 7.173 *L 7.350-7.450 Arterial Blood Partial Pressure CO2 13.1 *L 35.0-48.0 mmHg Arterial Blood Partial Pressure O2 121.6 H 83.0-108.0 mmHg Arterial Blood HCO3 4.7 L 21.0-28.0 mmol/L Arterial Blood Oxygen Saturation 97.9 94.0-98.0 % Arterial Blood Base Excess -21.2 L -2.0-3.0 mmol/L Arterial Blood Oxyhemoglobin 96.8 94.0-98.0 % Arterial Blood Carboxyhemoglobin 0.5 0.5-1.5 % Arterial Blood Methemoglobin 0.6 0.0-1.5 % Jadiel Test Yes Blood Gas Total Hemoglobin 13.70 13.5-17.5 g/dL Blood Gas Modality Room air FiO2 % 21.0 Blood Gas Critical Value Read Back Yes Blood Gas Notified Whom garcia [place] Blood Gas Notified Time [id number] Blood Gas Notified By Karen fabian Differential Total Cells Counted 100.0 100 Neutrophils % (Manual) 93 H 37.0-80.0 Band Neutrophils % (Manual) 1 Lymphocytes % (Manual) 2 L 10.0-50.0 Monocytes % (Manual) 4 0-12 Eosinophils % (Manual) 0 0-7 Basophils % (Manual) 0 0.0-2.0 Metamyelocytes % (manual) 0 Myelocytes % (Manual) 0 Promyelocytes % (Manual) 0 Blast Cells % (Manual) 0 Reactive Lymphocytes 0 Platelet Estimate Adequate Beta-Hydroxybutyric Acid > 4.500 H < 0.4 mmol/L Microbiology Date/Time Source Procedure Growth Status 05/24/24 13:40 Blood Blood Culture - Preliminary NO GROWTH AFTER 24 HOURS OF INCUBATION. Resulted Assessment Mildly elevated troponins not myocardial injury. Hypertension. Sinus tachycardia without dysrhythmias noted. Nausea and vomiting rule out GI anomalies Remote history of cardiac arrest and prolonged hospitalization. Post and states that he was seen by Cardiology and was told his stress test was normal. Plan/Recommendation Patient appears to be stable at this time. From a GI standpoint further workup may be performed. Cardiac-grier no further cardiac testing needed at this time. I will follow up on testing he states he recently had given and pertaining to his normal stress test and echocardiogram. This was discussed with . From a cardiac standpoint I can follow up with him in two weeks as an outpatient Plan discussed with: Patient, Spouse NYHA Physical activity limitations: Class2(Slight)fatigue,sob Date of Service: May 25, 2024 Billing Provider: ELIDA STRONG Sr., MD Cardiology Common Codes: [id number] INP/OBS CARE (High) ELIDA STRONG Sr., MD May 25, 2024 19:17
--- NOTE | 2024-05-26 10:23 | ECG ---
[facility] Test Date: 2024-05-25 Test Time: 06:54:19 Pat Name: SANA CARRILLO Department: ER Room: [address] [place] [address] Gender: M Car Hostler: ZAHIDA : 1955 Requested By: IESHA WILKERSON Order Number: [id number] Reading MD: Jimmie Michael Measurements Intervals [place] Rate: 47 P: 65 [place]: 156 QRS: 17 QRSD: 90 T: 19 QT: 515 QTc: 456 Interpretive Statements Sinus bradycardia Probable anteroseptal infarct, old Electronically Signed On 05-26-2024 22:14:40 PST by Jimmie Michael Please click the below link to view image of tracing.
== END 2024-05-25 18:24 | disposition home or self-care (01) | DRG 639 ==
LOC: EDBD 11:28 → ER 11:36 → OVERFLOW 13:58
PROVIDERS: ADMIT Internal Medicine; ATTEND Internal Medicine
DX: E11.10 Type 2 diabetes mellitus with ketoacidosis without coma (principal); E03.9 Hypothyroidism, unspecified; D72.829 Elevated white blood cell count, unspecified; I10 Essential (primary) hypertension; M81.0 Age-related osteoporosis without current pathological fracture; R00.1 Bradycardia, unspecified; R00.0 Tachycardia, unspecified; R79.89 Other specified abnormal findings of blood chemistry; F03.90 Unspecified dementia, unspecified severity, without behavioral disturbance, psychotic disturbance, mood disturbance, and anxiety; J44.9 Chronic obstructive pulmonary disease, unspecified; E86.0 Dehydration; K21.9 Gastro-esophageal reflux disease without esophagitis; Z87.11 Personal history of peptic ulcer disease; Z82.49 Family history of ischemic heart disease and other diseases of the circulatory system; Z83.3 Family history of diabetes mellitus; Z79.4 Long term (current) use of insulin; Z79.899 Other long term (current) drug therapy; Z86.74 Personal history of sudden cardiac arrest
CPT/HCPCS: 36415; 36600; 71045; 80048; 80053; 81001; 82010; 82805; 82962; 83605; 83735; 84100; 84484; 85007; 85025; 85027; 87040; 93005; 93306; 99291; 99292; G0378; J1815; J2405; J2543

== ENCOUNTER 2024-08-01 12:30 | Inpatient (IN) | payer OTHER, MEDICAID ==
[~2024-08-01] VITALS: Ht 190.5 cm; Wt 76.6 kg
[2024-08-01 13:05] VITALS: PULSE 98; RESP 24; O2SAT 98
--- NOTE | 2024-08-01 13:20 | ED.PDOC ---
History of present illness HPI Comments 69 y.o male with PMHx of DM, HTN, PUD and arthritis, presents to the ED via EMS for an evaluation of hyperglycemia. Per EMS, family on scene reported patient's blood glucose readings reading in the high 600's at home for the past 2 days. At bedside, patient denies any symptoms or pain, is alert and oriented x 2. Per EMS, family stated pt's baseline is oriented x 3. When asked about his medical history, recent illness, or any other questions, he states I do not know. Patient's blood glucose read HI twice at bedside. 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, Medications, Allergies Allergies: Coded Allergies: NO KNOWN ALLERGIES (Unverified , 02/02/14) Home Meds Reported Medications Alendronate Sodium (Alendronate Sodium) 70 Mg Tab, 1 TAB PO QWEEKLY, #4 TAB 3 Refills 04/20/22 Levothyroxine Sodium (Levothyroxine Sodium) 112 Mcg Tab, 125 MCG PO DAILY 04/20/22 Levothyroxine Sodium (Levothyroxine Sodium) 25 Mcg Tab 04/20/22 Insulin Glargine (Lantus Solostar) 100 Unit/Ml Inj, SC 04/20/22 Omeprazole (Omeprazole Dr) 20 Mg Cap, 1 CAP PO DAILYPRN 04/20/22 Information Source: Patient, Emergency Med Personnel Mode of Arrival: EMS Timing: Days (2) Duration: Since onset [place]: None History of: Diabetes Associated signs and symptoms: None Past Medical History PAST MEDICAL HISTORY: Arthritis, DM, HTN, PUD Surgical History: Denies all surgeries Family History Family History: No family hx of DM, No family hx of Heart kenan Social History Smoker: Non-Smoker Alcohol: Denies ETOH Use Drugs: Marijuana Lives In: Home Constitutional: denies: chills, diaphoresis, fatigue, fever, malaise, sweats, weakness, others EENTM: denies: blurred vision, double vision, ear bleeding, ear discharge, ear drainage, ear pain, ear ringing, eye pain, eye redness, hearing loss, mouth pain, mouth swelling, nasal discharge, nose bleeding, nose congestion, nose pain, photophobia, tearing, throat pain, throat swelling, voice changes, others Respiratory: denies: cough, hemoptysis, orthopnea, SOB at rest, shortness of breath, SOB with excertion, stridor, wheezing, others Cardiovascular: denies: chest pain, dizzy spells, diaphoresis, Dyspnea on exertion, edema, irregular heart beat, left arm pain, lightheadedness, palpitations, PND, syncope, others Gastrointestinal: denies: abdomen distended, abdominal pain, blood streaked bowels, constipated, diarrhea, dysphagia, difficulty swallowing, hematemesis, melena, nausea, poor appetite, poor fluid intake, rectal bleeding, rectal pain, vomiting, others Genitourinary: denies: burning, dysuria, flank pain, frequency, hematuria, i ncontinence, penile discharge, penile sore, pain, testicle pain, testicle swelling, urgency, others Neurological: denies: dizziness, fainting, headache, left sided numbness, left sided weakness, numbness, paresthesia, pre-existing deficit, right sided numbness, right sided weakness, seizure, speech problems, tingling, tremors, weakness, others Musculoskeletal: denies: back pain, gout, joint pain, joint swelling, muscle pain, muscle stiffness, neck pain, others Integumetry: denies: bruises, change in color, change in hair/nails, dryness, laceration, lesions, lumps, rash, wounds, others Allergic/Immunocompromised: denies: Difficulty Healing, Frequent Infections, Hives, Itching, others Hematologic/Lymphatic: denies: anemia, blood clots, easy bleeding, easy bruising, swollen glands, others Endocrine: denies: excessive hunger, excessive sweating, excessive thirst, excessive urination, flushing, intolerance to cold, intolerance to heat, unexplained weight gain, unexplained weight loss, others Psychiatric: denies: anxiety, bipolar disorder, depression, hopeless, panic disorder, schizophrenia, sleepless, suicidal, others All Other Systems: Reviewed and Negative Physical Exam General Appearance: No Apparent Distress HEENT: Other (Pupils and face symmetric. Dry mucous membranes.) Neck: Full Range of Motion, Normal Inspection Respiratory: Lungs Clear, No Accessory Muscle Use, No Respiratory Distress, Normal Breath Sounds Cardiovascular: No Edema, No JVD, Regular Rate/Rhythm Breast Exam: Deferred Gastrointestinal: Non Tender, Soft Genitalia: Deferred Pelvic: Deferred Rectal: Deferred Extremities: Normal inspection, Normal range of motion, Non-tender, No pedal edema Neurologic: Alert (Oriented x2), Normal Affect, Normal Mood, Other (Moves all extremities. No gross focal deficit.) Cerebellar Function: NOT DONE Reflexes: NOT DONE Skin: Dry, Normal Color, Warm Lymphatic: NOT DONE Was a procedure done? Was a procedure done?: No EKG EKG : Comments AFib, rate 81, normal QRS interval, QTC 465, normal axis, normal QRS, no ST/T changes. Differential Diagnosis (DM) Differential Diagnosis: Dehydration, Diabetic Coma, DKA, Electrolyte Abnormali ty, Encephalopathy, Hyperglycemia, Hyperosmolar State, UTI X-Ray, Labs, Meds, VS Vital Signs Date Time Temp Pulse Resp B/P (MAP) Pulse Ox O2 Delivery O2 Flow Rate FiO2 08/01/24 16:08 78 08/01/24 16:00 79 22 130/61 (84) 96 08/01/24 15:00 98.2 86 24 138/66 (90) 96 98.2 08/01/24 15:00 86 24 138/66 (90) 96 08/01/24 13:05 98.3 97 24 139/58 (85) 98 98.3 08/01/24 13:05 98 24 98 Room Air* 0 21 08/01/24 12:40 98.9 102 34 128/74 (92) 99 98.9 Lab Test 08/01/24 15:25 08/01/24 15:24 08/01/24 14:03 08/01/24 14:02 Range/Units POC Glucose > 600 *H > 600 *H > 600 *H > 600 *H 70-106 mg/dl Test 08/01/24 13:57 08/01/24 13:40 08/01/24 13:35 08/01/24 13:07 Range/Units Sodium Level 128 L 127 L 136-145 mmol/L Potassium Level 5.6 *H 5.7 *H 3.5-5.1 mmol/L Chloride Level 93 L 89 L 98-107 mmol/L Carbon Dioxide Level < 10 *L < 10 *L 20-31 mmol/L Anion Gap 25.06041 H 28.89650 H 5-15 Blood Urea Nitrogen 107 #*H 91 *H 9-23 mg/dL Creatinine 4.63 H 4.68 H 0.700-1.30 mg/dL Glomerular Filtration Rate Calc 13 13 >90 mL/min BUN/Creatinine Ratio 23.1 H 19.4 10.0-20.0 Serum Glucose 910 *H 942 *H 74-106 mg/dL Calcium Level 8.2 L 8.3 L 8.7-10.4 mg/dL Phosphorus Level 8.6 H 2.4-5.1 mg/dL Magnesium Level 2.3 1.6-2.6 mg/dL Blood Gas Specimen Type Arterial Blood Gas Sample Site Right radial Blood Gas Patient Temperature 37.0 Arterial Blood Date Drawn [id number] Arterial Blood pH 7.132 *L 7.350-7.450 Arterial Blood Partial Pressure CO2 15.5 *L 35.0-48.0 mmHg Arterial Blood Partial Pressure O2 72.2 L 83.0-108.0 mmHg Arterial Blood HCO3 5.1 L 21.0-28.0 mmol/L Arterial Blood Oxygen Saturation 90.9 L 94.0-98.0 % Arterial Blood Base Excess -22.0 L -2.0-3.0 mmol/L Arterial Blood Oxyhemoglobin 90.4 L 94.0-98.0 % Arterial Blood Carboxyhemoglobin 0.3 L 0.5-1.5 % Arterial Blood Methemoglobin 0.2 0.0-1.5 % Jadiel Test Yes Blood Gas Total Hemoglobin 10.90 L 13.5-17.5 g/dL Blood Gas Modality Room air FiO2 % 21.0 Blood Gas Critical Value Read Back Yes Blood Gas Notified Whom chante Noyola md Blood Gas Notified Time [id number] Blood Gas Notified By Karen arango i. White Blood Count 12.8 H 4.4-10.8 10^3/uL Red Blood Count 3.42 L 4.5-5.90 10^6/uL Hemoglobin 11.5 L 13.5-17.5 g/dL Hematocrit 37.9 L 41.0-53.0 % Mean Corpuscular Volume 110.8 H 80.0-100.0 fL Mean Corpuscular Hemoglobin 33.5 H 28.0-32.0 pg Mean Corpuscular Hemoglobin Concent 30.2 L 32.0-36.0 g/dL Red Cell Distribution Width 15.6 H 11.8-14.3 % Platelet Count 241 140-450 10^3/uL Mean Platelet Volume 7.7 6.9-10.8 fL Neutrophils (%) (Auto) 37.0-80.0 % Lymphocytes (%) (Auto) 10.0-50.0 % Monocytes (%) (Auto) 0.0-12.0 % Basophils (%) (Auto) 0.0-2.0 % Neutrophils # (Auto) 1.6-8.6 10 ^3/uL Lymphocytes # (Auto) 0.4-5.4 10 ^3/uL Monocytes # (Auto) 0-1.3 10 ^3/uL Differential Total Cells Counted 100.0 100 Neutrophils % (Manual) 91 H 37.0-80.0 Band Neutrophils % (Manual) 0 Lymphocytes % (Manual) 9 L 10.0-50.0 Monocytes % (Manual) 0 0-12 Eosinophils % (Manual) 0 0-7 Basophils % (Manual) 0 0.0-2.0 Metamyelocytes % (manual) 0 Myelocytes % (Manual) 0 Promyelocytes % (Manual) 0 Blast Cells % (Manual) 0 Reactive Lymphocytes 0 Platelet Estimate Adequate Serum Osmolality 368 H 278-298 mOsm/kg Lactic Acid Level 2.7 *H 0.4-2.0 mmol/L Total Bilirubin 0.2 0.2-1.0 mg/dL Aspartate Amino Transferase (AST) 30 13-40 U/L Alanine Aminotransferase (ALT) 66 H 7-40 U/L Alkaline Phosphatase 126 H 46-116 U/L Troponin I High Sensitivity 697 *H </=54 ng/L B-Type Natriuretic Peptide 451.45 0-100 pg/mL Total Protein 6.2 5.7-8.2 g/dL Albumin 4.2 3.2-4.8 g/dL Beta-Hydroxybutyric Acid > 4.500 H < 0.4 mmol/L POC Glucose > 600 *H 70-106 mg/dl Test 08/01/24 13:05 Range/Units POC Glucose > 600 *H 70-106 mg/dl Current Medications Medications (Trade) Dose Ordered Sig/Sukhdev Route Start Time Stop Time Status Last Admin Sodium Chloride 2,000 ml @ 1,000 mls/hr Q2H ONCE IV 08/01/24 13:00 08/01/24 14:59 DC 08/01/24 13:25 Insulin Human Regular (InsuLIN R) 10 units ONCE ONCE IV 08/01/24 13:00 08/01/24 13:02 DC 08/01/24 13:25 Insulin Human (Reg)/Sodium Chloride 100 ml @ 0.5 mls/hr Q24H IV 08/01/24 14:00 08/01/24 16:40 DC 08/01/24 15:30 Diagnostic Test (Pha) (Accu-Chek Comfort Curve T) 1 strip Q90MIN 08/01/24 15:00 08/01/24 17:49 Insulin Glargine (Lantus) 15 units ONCE ONCE SC 08/01/24 14:00 08/01/24 14:09 DC 08/01/24 14:04 CHEST RADIOGRAPH Indication: hyperglycemia Technique: Single frontal view of the chest was obtained Comparison: XY CHEST PORTABLE on DOS: 05/24/24, CHEST PORTABLE on DOS: 04/20/22, CXRP on DOS: 04/20/22 FINDINGS: Lines and Tubes: None Lungs: Patchy left lower lung zone opacity. Pleura: No effusion. No pneumothorax. Cardiomediastinal contours: Unremarkable Bones: No acute osseous abnormality. IMPRESSION: Left lower lung zone pneumonia/atelectasis. PROCEDURE(s): HWOCT - HEAD WITHOUT CONTRAST REASON: [facility] ORDER NUMBER(s): [id number], ACCESSION NUMBER(s): [id number] CT brain without contrast CLINICAL INDICATION: Altered mental status FINDINGS: The study was performed in a multidetector scanner. This study performed taking axial images from the skull base up to the vertex. Both brain and bone windows are photographed. Dose lowering techniques have been used including automated exposure control and adjustment of mA and/or KV according to patient size. Encephalomalacia right occipital lobe probably due to old infarct or injury. No intraparenchymal hemorrhage or edema No hydrocephalus or midline shift. No extra-axial fluid collections. On bone windows no lesions of the skull or paranasal sinuses IMPRESSION: 1. No acute intracranial pathology. Right occipital lobe encephalomalacia either due to old infarct or injury Computed Tomographic Radiation Dosimetry Report: Total CTDI vol = 58 mGy Total DLP = 1139 mGy-cm All CT scans at this medical facility are performed using dose modulation techniques as appropriate to a performed exam including the following: Automated exposure control was utilized; adjustment of the MA and/or KvP according to patient size; and use of iterative reconstruction technique. X-Ray, Labs, Meds, VS Comment 69-year-old male with a history of diabetes, hypertension, PUD and arthritis brought in by EMS from home for evaluation of hyperglycemia Vitals remarkable for BP 139/58, respiratory rate of 24 Exam remarkable for orientation x2 Rhythm strip independently interpreted by me: Sinus rhythm, rate 98, no ectopy. CT head IMPRESSION: 1. No acute intracranial pathology. Right occipital lobe encephalomalacia either due to old infarct or injury Chest x-ray IMPRESSION: Left lower lung zone pneumonia/atelectasis. CBC remarkable for WBC 12.8, metabolic panel remarkable for sodium 127, potassium 5.7, chloride 89, CO2 less than 10, BUN 91, creatinine 4.68, glucose 942, lactate 2.7, troponin 697, BNP 451.45, beta hydroxybutyrate greater than 4.5 Patient treated with the following in the ED: 2 L 0.9 normal saline IV bolus, regular insulin 10 units IV, placed on the DKA protocol, cefepime 1 g IV, vancomycin per pharmacy IV Plan is to admit the patient for glucose control, Nephrology and Cardiology evaluation Time of 1ST Reevaluation: 13:27 Reevaluation 1ST: Unchanged Patient Education/Counseling: Diagnosis, Treatment Family Education/Counseling: No Family Present Departure 1 Departure Time of Disposition: 18:00 Impression: Primary Impression: DKA (diabetic ketoacidosis) Additional Impressions: Acute renal failure Non-STEMI (non-ST elevated myocardial infarction) Afib Pneumonia Disposition: ADMITTED INPATIENT Admit to: ICU Condition: Critical Critical Care Note Critical Care Time?: Yes (1 hr-critical care time only) Critical care comment: Critical care time including multiple bedside re-evaluations, review of lab and imaging studies, and discussion of the case with the admitting provider. Patient is high risk for metabolic decompensation. Stability Stability form required: No I personally scribed for SUNITA CARMONA MD ([facility]) on 08/01/24 at 13:20. Electronically submitted by Sierra Zhou ([facility]). I personally scribed for SUNITA CARMONA MD ([facility]) on 08/01/24 at 13:30. Electronically submitted by Sierra Zhou ([facility]). I personally scribed for SUNITA CARMONA MD ([facility]) on 08/01/24 at 13:41. Electronically submitted by Sierra Zhou ([facility]). SUNITA CARMONA MD Aug 01, 2024 13:20
[2024-08-01] MEDS: InsuLIN REG 1unit/0.01ml Soln (100units/ml) IV ONE (13:25)
[2024-08-01] MEDS: SODIUM CHLORIDE 0.9% 2,000 ML IV ONE (13:25)
--- NOTE | 2024-08-01 13:31 | DVH ---
CHEST RADIOGRAPH Indication: hyperglycemia Technique: Single frontal view of the chest was obtained Comparison: XY CHEST PORTABLE on DOS: 05/24/24, CHEST PORTABLE on DOS: 04/20/22, CXRP on DOS: 04/20/22 FINDINGS: Lines and Tubes: None Lungs: Patchy left lower lung zone opacity. Pleura: No effusion. No pneumothorax. Cardiomediastinal contours: Unremarkable Bones: No acute osseous abnormality. IMPRESSION: Left lower lung zone pneumonia/atelectasis.
[2024-08-01] MEDS ORDERED: SODIUM CHLORIDE 0.9% 1,000 ML IV SCH ×3 (14:00→20:00)
[2024-08-01] MEDS ORDERED: DEXTROSE (50%) 50ML SYRG IV PRN (14:00)
[2024-08-01 14:04] LABS: Hemoglobin 11.5 g/dL (13.5-17.5); Red Cell Distribution Width 15.6 % (11.8-14.3)
[2024-08-01] MEDS: INSULIN LANTUS (GLARGINE) 1 /0.01ml (100units/ml) SC ONE (14:04)
[2024-08-01 14:07] LABS: Hematocrit 37.9 % (41.0-53.0); Mean Corpuscular Hemoglobin 33.5 pg (28.0-32.0); Mean Corpuscular Hgb Conc. 30.2 g/dL (32.0-36.0); Mean Corpuscular Volume 110.8 fL (80.0-100.0); Platelet Count (auto) 241 10^3/uL (140-450); Red Blood Cells 3.42 10^6/uL (4.5-5.90); White Blood Cell 12.8 10^3/uL (4.4-10.8)
[2024-08-01 14:08] LABS: Albumin 4.2 g/dL (3.2-4.8); Anion Gap 28.00001 (5-15); Aspartate Aminotransferase 30 U/L (13-40); BUN/Creatinine Ratio 19.4 (10.0-20.0); Band Neutrophils % (manual) 0; Basophils % (manual) 0 (0.0-2.0); Blast Cells 0; Eosinophils % (manual) 0 (0-7); Metamyelocytes % 0; Monocytes % (manual) 0 (0-12); Myelocytes % 0; Promyelocytes % 0; Reactive Lymphocytes 0; Total Protein 6.2 g/dL (5.7-8.2)
[2024-08-01 14:14] LABS: Lactic Acid w/Reflex 2.7 mmol/L (0.4-2.0)
[2024-08-01 14:17] LABS: Chloride 89 mmol/L (98-107); Potassium 5.7 mmol/L (3.5-5.1); Sodium 127 mmol/L (136-145)
[2024-08-01 14:19] LABS: Alanine Aminotransferase 66 U/L (7-40); Alkaline Phosphatase 126 U/L (46-116); Bilirubin, Total 0.2 mg/dL (0.2-1.0); Blood Urea Nitrogen 91 mg/dL (9-23); Calcium 8.3 mg/dL (8.7-10.4); Carbon Dioxide < 10 mmol/L (20-31); Glucose 942 mg/dL (74-106)
[2024-08-01 14:31] LABS: Anion Gap 25.00001 (5-15)
[2024-08-01 14:31] LABS: Lymphocytes % (manual) 9 (10.0-50.0)
[2024-08-01 14:32] LABS: Platelet Estimate Adequate
[2024-08-01 14:36] LABS: BUN/Creatinine Ratio 23.1 (10.0-20.0); Magnesium 2.3 mg/dL (1.6-2.6)
[2024-08-01 14:45] LABS: Calcium 8.2 mg/dL (8.7-10.4); Chloride 93 mmol/L (98-107); Phosphorus 8.6 mg/dL (2.4-5.1); Sodium 128 mmol/L (136-145)
[2024-08-01 14:47] LABS: Blood Urea Nitrogen 107 mg/dL (9-23); Carbon Dioxide < 10 mmol/L (20-31); Glucose 910 mg/dL (74-106); Potassium 5.6 mmol/L (3.5-5.1)
[2024-08-01] MEDS: ACCU-CHEK COMFORT CURVE STRIP VI SCH (15:00)
--- NOTE | 2024-08-01 15:03 | DVH ---
CT brain without contrast CLINICAL INDICATION: Altered mental status FINDINGS: The study was performed in a multidetector scanner. This study performed taking axial image s from the skull base up to the vertex. Both brain and bone windows are photographed. Dose lowering techniques have been used including automated exposure control and adjustment of mA and /or KV according to patient size. Encephalomalacia right occipital lobe probably due to old infarct or injury. No intraparenchymal hemorrhage or edema No hydrocephalus or midline shift. No extra-axial fluid collections. On bone windows no lesions of the skull or paranasal sinuses IMPRESSION: 1. No acute intracranial pathology. Right occipital lobe encephalomalacia either due to old infarct or injury Computed Tomographic Radiation Dosimetry Report: Total CTDI vol = 58 mGy Total DLP = 1139 mGy-cm All CT scans at this medical facility are performed using dose modulation techniques as appropriate to a performed exam including the following: Automated exposure control was utilized; adjustment of the MA and/or KvP according to patient size; and use of iterative reconstruction technique.
[2024-08-01] MEDS: INSULIN DRIP 100 UNIT/100ML 100 ML IV SCH ×3 (15:30→18:45)
[2024-08-01] MEDS ORDERED: ONDANSETRON HCL 4 MG/2 ML VIAL IV PRN (16:45)
[2024-08-01] MEDS ORDERED: INSULIN DRIP 100 UNIT/100ML 100 ML IV SCH (16:45)
[2024-08-01] MEDS ORDERED: MORPHINE SULFATE INJ 2 MG/ml SYRG IV PRN (16:45)
[2024-08-01] MEDS ORDERED: HYDROcodone-ACET 5/325MG TAB PO PRN (16:45)
[2024-08-01] MEDS ORDERED: NITROGLYCERIN 0.4 MG SL TAB SL PRN (16:45)
[2024-08-01] MEDS ORDERED: ACETAMINOPHEN 325 MG TAB PO PRN (16:45)
[2024-08-01] MEDS: SODIUM CHLORIDE 0.9% 1,000 ML IV SCH (16:50)
--- NOTE | 2024-08-01 16:51 | DVHHP2 ---
History of Present Illness Reason for Visit: Altered mental status and high blood sugars History of Present Illness 69-year-old male with a known history of Alzheimer dementia, insulin-dependent diabetes mellitus type 2, noncompliance with the insulin, hypertension initially presented to the hospital as he was brought in by paramedics with altered mental status and high blood sugar found to have in diabetic ketoacidosis. Patient is currently in ER with the ICU status on insulin drip and IV hydration. Patient's currently following commands. As per family patient does have beginning of dementia and he is keep forgetting his insulin. Denies any chest pain palpitation fevers chills n, hematemesis hematochezia melena dysuria hematuria. Patient does complaining of nausea and vomiting for last three days. 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 Allergies: Coded Allergies: NO KNOWN ALLERGIES (Unverified , 02/02/14) Medications Current Medications Medications Dose Ordered Sig/Sukhdev Route Start Time Stop Time Status Last Admin Dose Admin Dextrose 50 ml UD PRN IV 08/01/24 14:00 Diagnostic Test (Pha) 1 strip Q90MIN 08/01/24 15:00 08/01/24 16:36 1 STRIP Insulin Glargine 15 units DAILY SC 08/02/24 10:00 Sodium Chloride 1,000 ml @ 150 mls/hr Q6H40M IV 08/01/24 16:45 Acetaminophen/ Hydrocodone Bitart 1 tab Q4HP PRN PO 08/01/24 16:45 Ondansetron HCl 4 mg Q4HP PRN IV 08/01/24 16:45 Acetaminophen 650 mg Q6HP PRN PO 08/01/24 16:45 Nitroglycerin 0.4 mg Q5MINP PRN SL 08/01/24 16:45 Morphine Sulfate 2 mg Q30M PRN IV 08/01/24 16:45 Insulin Human (Reg)/Sodium Chloride 100 ml @ 0.5 mls/hr Q24H IV 08/01/24 16:45 UNV Exam Vital Signs Vital Signs Date Time Temp Pulse Resp B/P (MAP) Pulse Ox O2 Delivery O2 Flow Rate FiO2 08/01/24 16:08 78 08/01/24 13:05 98.3 24 139/58 (85) 98 98.3 08/01/24 13:05 Room Air* 0 21 Exam HEENT pupils are reactive Neck is supple CV is S1-S2 regular rate and rhythm Respiratory diminished breath sounds bases GI positive bowel sound Extremity no edema 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 motor 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 Labs/Xrays Labs Test 08/01/24 15:25 08/01/24 13:57 08/01/24 13:40 08/01/24 13:35 Range/Units POC Glucose > 600 *H 70-106 mg/dl Sodium Level 128 L 136-145 mmol/L Potassium Level 5.6 *H 3.5-5.1 mmol/L Chloride Level 93 L 98-107 mmol/L Carbon Dioxide Level < 10 *L 20-31 mmol/L Anion Gap 25.56193 H 5-15 Blood Urea Nitrogen 107 #*H 9-23 mg/dL Creatinine 4.63 H 0.700-1.30 mg/dL Glomerular Filtration Rate Calc 13 >90 mL/min BUN/Creatinine Ratio 23.1 H 10.0-20.0 Serum Glucose 910 *H 74-106 mg/dL Calcium Level 8.2 L 8.7-10.4 mg/dL Phosphorus Level 8.6 H 2.4-5.1 mg/dL Magnesium Level 2.3 1.6-2.6 mg/dL Blood Gas Specimen Type Arterial Blood Gas Sample Site Right radial Blood Gas Patient Temperature 37.0 Arterial Blood Date Drawn [id number] Arterial Blood pH 7.132 *L 7.350-7.450 Arterial Blood Partial Pressure CO2 15.5 *L 35.0-48.0 mmHg Arterial Blood Partial Pressure O2 72.2 L 83.0-108.0 mmHg Arterial Blood HCO3 5.1 L 21.0-28.0 mmol/L Arterial Blood Oxygen Saturation 90.9 L 94.0-98.0 % Arterial Blood Base Excess -22.0 L -2.0-3.0 mmol/L Arterial Blood Oxyhemoglobin 90.4 L 94.0-98.0 % Arterial Blood Carboxyhemoglobin 0.3 L 0.5-1.5 % Arterial Blood Methemoglobin 0.2 0.0-1.5 % Jadiel Test Yes Blood Gas Total Hemoglobin 10.90 L 13.5-17.5 g/dL Blood Gas Modality Room air FiO2 % 21.0 Blood Gas Critical Value Read Back Yes Blood Gas Notified Whom chante Noyola md Blood Gas Notified Time [id number] Blood Gas Notified By Armament Repairer kailash arango White Blood Count 12.8 H 4.4-10.8 10^3/uL Red Blood Count 3.42 L 4.5-5.90 10^6/uL Hemoglobin 11.5 L 13.5-17.5 g/dL Hematocrit 37.9 L 41.0-53.0 % Mean Corpuscular Volume 110.8 H 80.0-100.0 fL Mean Corpuscular Hemoglobin 33.5 H 28.0-32.0 pg Mean Corpuscular Hemoglobin Concent 30.2 L 32.0-36.0 g/dL Red Cell Distribution Width 15.6 H 11.8-14.3 % Platelet Count 241 140-450 10^3/uL Mean Platelet Volume 7.7 6.9-10.8 fL Neutrophils (%) (Auto) 37.0-80.0 % Lymphocytes (%) (Auto) 10.0-50.0 % Monocytes (%) (Auto) 0.0-12.0 % Basophils (%) (Auto) 0.0-2.0 % Neutrophils # (Auto) 1.6-8.6 10 ^3/uL Lymphocytes # (Auto) 0.4-5.4 10 ^3/uL Monocytes # (Auto) 0-1.3 10 ^3/uL Differential Total Cells Counted 100.0 100 Neutrophils % (Manual) 91 H 37.0-80.0 Band Neutrophils % (Manual) 0 Lymphocytes % (Manual) 9 L 10.0-50.0 Monocytes % (Manual) 0 0-12 Eosinophils % (Manual) 0 0-7 Basophils % (Manual) 0 0.0-2.0 Metamyelocytes % (manual) 0 Myelocytes % (Manual) 0 Promyelocytes % (Manual) 0 Blast Cells % (Manual) 0 Reactive Lymphocytes 0 Platelet Estimate Adequate Serum Osmolality 368 H 278-298 mOsm/kg Lactic Acid Level 2.7 *H 0.4-2.0 mmol/L Total Bilirubin 0.2 0.2-1.0 mg/dL Aspartate Amino Transferase (AST) 30 13-40 U/L Alanine Aminotransferase (ALT) 66 H 7-40 U/L Alkaline Phosphatase 126 H 46-116 U/L Troponin I High Sensitivity 697 *H </=54 ng/L B-Type Natriuretic Peptide 451.45 0-100 pg/mL Total Protein 6.2 5.7-8.2 g/dL Albumin 4.2 3.2-4.8 g/dL Beta-Hydroxybutyric Acid > 4.500 H < 0.4 mmol/L Assessment/Plan Assessment/Plan 69-year-old male with a known history of insulin-dependent diabetes mellitus type 2, hypertension, Alzheimer dementia, CKD, GERD presented to the hospital with altered mental status and high blood sugars found to have 1. Severe diabetic ketoacidosis 2. Anion gap metabolic acidosis secondary to 1. 3. Insulin-dependent diabetes mellitus currently in DKA 4. AKA with underlying CKD 5. Acute metabolic encephalopathy with underlying Alzheimer dementia 6. Hypertension 7. GERD 8. Hyperkalemia N9. pseudohyponatremia secondary to high blood sugars -admitted to ICU aggressive IV hydration insulin drip, diabetic education -BMP, Mag, phosphorus every 6 hours. Plan discussed with: Patient, Other My Orders Orders - SHUKRI MENDES MD Procedure Category Date Status Time Basic Metabolic Panel LAB 08/01/24 Logged 17:45 Admit ADMIT 08/01/24 Transmitted 16:31 Code Status CODE 08/01/24 Transmitted 16:31 Sodium Chloride 0.9% PHA 08/01/24 In Process 16:45 Hydrocodone-Acet PHA 08/01/24 In Process 5/325mg Tab ([place] 16:45 Ondansetron Hcl PHA 08/01/24 In Process (Zofran) 16:45 Fall Risk Precautions ISAIAH 08/01/[address] 16:31 Npo (Nothing By DIET 08/01/24 Transmitted Mouth) Diet Dinner Pt Request For Service PT 08/01/24 Logged 16:31 Condition: Critical ISAIAH 08/01/24 In Process 16:31 Acetaminophen Tablet PHA 08/01/24 In Process (Tylenol Tablet) 16:45 Nitroglycerin PHA 08/01/24 In Process Sublingual (Ntrostat 16:45 Morphine Sulfate PHA 08/01/24 In Process Injection 16:45 Stat Ekg For Chest ISAIAH 08/01/24 In Process Pain 16:31 Notify Md Of Changes ISAIAH 08/01/24 In Process From Base 16:31 Meter Mechanic For ISAIAH 08/01/24 In Process 24 Hours 16:31 Emergency Dysrhythmia ISAIAH 08/01/24 In Process Protocol 16:31 Rhythm Strips Once ISAIAH 08/01/24 In Process Every Shift 16:31 Oxygen By Nasal RT 08/01/24 Transmitted Cannula 16:31 *[facility] CONS 08/01/24 Transmitted -[place] 16:33 Insulin Drip 100 PHA 08/01/24 Logged Unit/100ml (Myxredlin 16:45 Date of Service: Aug 01, 2024 Billing Provider: SHUKRI MENDES MD Common Visit Codes: NOT BILLABLE SHUKRI MENDES MD Aug 01, 2024 16:51
[2024-08-01 18:12] LABS: Chloride 99 mmol/L (98-107); Potassium 4.9 mmol/L (3.5-5.1)
[2024-08-01 18:13] LABS: Anion Gap 23 (5-15)
[2024-08-01 18:18] LABS: BUN/Creatinine Ratio 21.5 (10.0-20.0)
[2024-08-01 18:28] LABS: Calcium 7.9 mg/dL (8.7-10.4); Carbon Dioxide 10 mmol/L (20-31); Sodium 132 mmol/L (136-145)
[2024-08-01 18:31] LABS: Blood Urea Nitrogen 87 mg/dL (9-23); Glucose 691 mg/dL (74-106)
--- NOTE | 2024-08-01 19:01 | ECG ---
[facility] Test Date: 2024-08-01 Test Time: 19:00:37 Pat Name: SANA CARRILLO Department: ED Room: [facility] Gender: M Technician Inventory Specialist: KAMILA : 1955 Requested By: SUNITA GUTIERREZ Order Number: [id number] Reading MD: Jimmie Michael Measurements Intervals [place] Rate: 81 P: 0 AR: 0 QRS: 16 QRSD: 85 T: 19 QT: 400 QTc: 465 Interpretive Statements Atrial fibrillation Electronically Signed On 08-03-2024 17:08:57 PDT by Jimmie Michael Please click the below link to view image of tracing.
[2024-08-01] MEDS ORDERED: VANCOMYCIN PER PHARMACY 0 MG IV SCH (19:15)
[2024-08-01 19:30] VITALS: PULSE 75; RESP 20; O2SAT 98
[2024-08-01 19:57] LABS: Basophils # (auto) 0 10 ^3/uL (0-0.2); Basophils % (auto) 0.4 % (0.0-2.0); Eosinophils # (auto) 0 10 ^3/uL (0-0.8); Hematocrit 36.4 % (41.0-53.0); Hemoglobin 12.2 g/dL (13.5-17.5); Lymphocytes # (auto) 0.7 10 ^3/uL (0.4-5.4); Lymphocytes % (auto) 6.9 % (10.0-50.0); Mean Corpuscular Hemoglobin 33.4 pg (28.0-32.0); Mean Corpuscular Hgb Conc. 33.4 g/dL (32.0-36.0); Mean Corpuscular Volume 99.9 fL (80.0-100.0); Monocytes # (auto) 0.3 10 ^3/uL (0-1.3); Monocytes % (auto) 3.3 % (0.0-12.0); Neutrophils % (auto) 89.4 % (37.0-80.0); Nucleated Red Blood Cells % 0.1 %; Platelet Count (auto) 194 10^3/uL (140-450); Red Blood Cells 3.64 10^6/uL (4.5-5.90); Red Cell Distribution Width 14.2 % (11.8-14.3); White Blood Cell 10.1 10^3/uL (4.4-10.8)
[2024-08-01 20:06] LABS: Chloride 102 mmol/L (98-107); Potassium 4.4 mmol/L (3.5-5.1)
[2024-08-01 20:07] LABS: Anion Gap 18 (5-15); Calcium 8.5 mg/dL (8.7-10.4); Carbon Dioxide 16 mmol/L (20-31); Sodium 136 mmol/L (136-145)
[2024-08-01 20:12] LABS: BUN/Creatinine Ratio 23.2 (10.0-20.0)
[2024-08-01 20:13] LABS: Glucose 524 mg/dL (74-106)
[2024-08-01 20:14] LABS: Blood Urea Nitrogen 91 mg/dL (9-23); INR 0.91 (0.9-1.15); Partial Thromboplastin Time 25.3 SEC (24.5-34.5); Prothrombin Time 9.7 sec (9.3-11.8)
[2024-08-01] MEDS: METOPROLOL TARTRATE 25 MG TAB PO ONE (20:42)
[2024-08-01] MEDS: ASPirin 81 mg TAB PO ONE (20:43)
[2024-08-01] MEDS: ATORVASTATIN 20 MG TAB PO ONE (20:43)
[2024-08-01 20:44] LABS: Urine Bacteria FEW /hpf (None Seen); Urine Blood 1+ /uL (Negative); Urine Clarity Clear (Clear); Urine Color Colorless (Yellow); Urine Protein, UAD Negative (Negative); Urine Specific Gravity 1.011 (1.001-1.035); Urine Squamous Epithelial Cell None Seen /hpf (<5); Urine Urobilinogen Normal (Negative); Urine WBC < 1 /HPF (0-3)
[2024-08-01] MEDS: VANCOMYCIN 750MG KIT 100 ML IV ONE (21:07)
[2024-08-01] MEDS: HEPARIN DRIP/D5W 100UNITS/ML 250 ML IV SCH (21:45)
[2024-08-01] MEDS: METOPROLOL TARTRATE 25 MG TAB PO SCH (22:14)
[2024-08-01] MEDS: CEFEPIME 1GM/ 50ML 50 ML IV ONE (22:23)
[2024-08-02 04:23] LABS: Basophils # (auto) 0 10 ^3/uL (0-0.2); Basophils % (auto) 0.1 % (0.0-2.0); Eosinophils # (auto) 0 10 ^3/uL (0-0.8); Eosinophils % (auto) 0.1 % (0.0-7.0); Hematocrit 33.1 % (41.0-53.0); Hemoglobin 11.3 g/dL (13.5-17.5); Lymphocytes # (auto) 0.7 10 ^3/uL (0.4-5.4); Lymphocytes % (auto) 7.4 % (10.0-50.0); Mean Corpuscular Hemoglobin 33.2 pg (28.0-32.0); Mean Corpuscular Hgb Conc. 34.2 g/dL (32.0-36.0); Mean Corpuscular Volume 97.1 fL (80.0-100.0); Monocytes # (auto) 0.6 10 ^3/uL (0-1.3); Monocytes % (auto) 6.3 % (0.0-12.0); Neutrophils # (auto) 8.2 10 ^3/uL (1.6-8.6); Neutrophils % (auto) 86.1 % (37.0-80.0); Platelet Count (auto) 195 10^3/uL (140-450); Red Blood Cells 3.41 10^6/uL (4.5-5.90); Red Cell Distribution Width 13.7 % (11.8-14.3); White Blood Cell 9.5 10^3/uL (4.4-10.8)
[2024-08-02 04:27] LABS: Potassium 3.8 mmol/L (3.5-5.1); Sodium 143 mmol/L (136-145)
[2024-08-02 04:28] LABS: Anion Gap 10 (5-15); Carbon Dioxide 21 mmol/L (20-31)
[2024-08-02 04:29] LABS: Calcium 8.6 mg/dL (8.7-10.4); Chloride 112 mmol/L (98-107)
[2024-08-02 04:33] LABS: BUN/Creatinine Ratio 29.5 (10.0-20.0); Glucose 84 mg/dL (74-106)
[2024-08-02 04:36] LABS: Blood Urea Nitrogen 90 mg/dL (9-23)
[2024-08-02] MEDS ORDERED: DEXTROSE (50%) 50ML SYRG IV PRN (05:15)
[2024-08-02] MEDS: HEPARIN SODIUM (PORCINE) 5000 UNITS/ML 1ML VIAL IV ONE (05:22)
--- NOTE | 2024-08-02 07:18 | DVHINCON2 ---
Date of service: Aug 02, 2024 History of Present Illness 69 yo M with hx of uncontrolled IDDM, HTN, HL admitted for DKA and AMS. pt has some level of dementia per notes but answers my questions. he had CV workup few months ago per notes. he had echo here as well. trops are elevated Past Medical History reviewed Family History: Family history: Cardiovascular disease Family history: Diabetes mellitus Allergies: Coded Allergies: NO KNOWN ALLERGIES (Unverified , 02/02/14) Home Meds Reported Medications Alendronate Sodium (Alendronate Sodium) 70 Mg Tab, 1 TAB PO QWEEKLY, #4 TAB 3 Refills 04/20/22 Levothyroxine Sodium (Levothyroxine Sodium) 112 Mcg Tab, 125 MCG PO DAILY 04/20/22 Levothyroxine Sodium (Levothyroxine Sodium) 25 Mcg Tab 04/20/22 Insulin Glargine (Lantus Solostar) 100 Unit/Ml Inj, SC 04/20/22 Omeprazole (Omeprazole Dr) 20 Mg Cap, 1 CAP PO DAILYPRN 04/20/22 Current Medications Current Medications Medications (Trade) Dose Ordered Sig/Sukhdev Route PRN Reason Start Time Stop Time Status Last Admin Sodium Chloride 1,000 ml @ 500 mls/hr Q2H IV 08/01/24 14:00 08/01/24 15:45 DC Sodium Chloride 1,000 ml @ 250 mls/hr Q4H IV 08/01/24 18:00 08/01/24 15:45 DC Sodium Chloride 1,000 ml @ 150 mls/hr Q6H40M IV 08/01/24 20:00 08/01/24 15:45 DC Insulin Human (Reg)/Sodium Chloride 100 ml @ 0.5 mls/hr Q24H IV 08/01/24 14:00 08/01/24 16:40 DC 08/01/24 15:30 Dextrose 50 ml UD PRN IV SEE CURRENT ALGORITHM or SCALE 08/01/24 14:00 Diagnostic Test (Pha) (Accu-Chek Comfort Curve T) 1 strip Q90MIN 08/01/24 15:00 08/02/24 04:30 Insulin Glargine (Lantus) 15 units DAILY SC 08/02/24 10:00 Sodium Chloride 1,000 ml @ 150 mls/hr Q6H40M IV 08/01/24 16:45 08/01/24 23:29 Acetaminophen/ Hydrocodone Bitart (Secor 5/325MG Tab) 1 tab Q4HP PRN PO MODERATE PAIN (4-6 PAIN SCALE) 08/01/24 16:45 Ondansetron HCl (Zofran) 4 mg Q4HP PRN IV NAUSEA / VOMITING 08/01/24 16:45 Acetaminophen (Tylenol Tablet) 650 mg Q6HP PRN PO PAIN SCALE 1-3 OR TEMP>100.4 08/01/24 16:45 Nitroglycerin (Ntrostat Sublingual) 0.4 mg Q5MINP PRN SL FOR CHEST PAIN 08/01/24 16:45 Morphine Sulfate 2 mg Q30M PRN IV FOR CHEST PAIN 08/01/24 16:45 Insulin Human (Reg)/Sodium Chloride 100 ml @ 0.5 mls/hr Q24H IV 08/01/24 16:45 08/01/24 16:43 DC Insulin Human (Reg)/Sodium Chloride 100 ml @ 0.5 mls/hr Q24H IV 08/01/24 16:45 08/01/24 18:46 DC 08/01/24 16:45 Insulin Human (Reg)/Sodium Chloride 100 ml @ 0.5 mls/hr Q24H IV 08/01/24 18:45 08/02/24 05:15 DC 08/01/24 18:45 Vancomycin HCl 0 ml @ 0 mls/hr UD IV 08/01/24 19:15 Aspirin 81 mg DAILY PO 08/02/24 10:00 Atorvastatin Calcium (Lipitor) 40 mg DAILY PO 08/02/24 10:00 Metoprolol Tartrate (Lopressor Tablet) 25 mg BID PO 08/01/24 22:00 08/01/24 22:14 Heparin Sodium/ Dextrose 250 ml @ 9 mls/hr Q24H IV 08/01/24 20:00 08/01/24 21:45 Diagnostic Test (Pha) (Accu-Chek Comfort Curve T) 1 strip IQ4HR 08/02/24 08:00 Insulin Human Regular (InsuLIN R) IQ4HR SC 08/02/24 08:00 Dextrose 50 ml UD PRN IV Blood Sugar LESS THAN 60 08/02/24 05:15 Review of Systems 10 pt ros otherwise negative Vital Signs Vital Signs Date Time Temp Pulse Resp B/P (MAP) Pulse Ox O2 Delivery O2 Flow Rate FiO2 08/02/24 07:00 60 17 120/63 (82) 98 08/01/24 19:30 Room Air* 0 21 08/01/24 19:30 98.5 98.5 Physical Exam nad s1 s2 rrr ctab soft nt/nd no edema disheveled appearance Labs/Diagnostic Data Labs Test 08/02/24 04:40 08/02/24 03:49 08/01/24 20:21 08/01/24 19:41 Range/Units POC Glucose 79 70-106 mg/dl White Blood Count 9.5 4.4-10.8 10^3/uL Red Blood Count 3.41 L 4.5-5.90 10^6/uL Hemoglobin 11.3 L 13.5-17.5 g/dL Hematocrit 33.1 L 41.0-53.0 % Mean Corpuscular Volume 97.1 80.0-100.0 fL Mean Corpuscular Hemoglobin 33.2 H 28.0-32.0 pg Mean Corpuscular Hemoglobin Concent 34.2 32.0-36.0 g/dL Red Cell Distribution Width 13.7 11.8-14.3 % Platelet Count 195 140-450 10^3/uL Mean Platelet Volume 7.3 6.9-10.8 fL Neutrophils (%) (Auto) 86.1 H 37.0-80.0 % Lymphocytes (%) (Auto) 7.4 L 10.0-50.0 % Monocytes (%) (Auto) 6.3 0.0-12.0 % Eosinophils (%) (Auto) 0.1 0.0-7.0 % Basophils (%) (Auto) 0.1 0.0-2.0 % Neutrophils # (Auto) 8.2 1.6-8.6 10 ^3/uL Lymphocytes # (Auto) 0.7 0.4-5.4 10 ^3/uL Monocytes # (Auto) 0.6 0-1.3 10 ^3/uL Eosinophils # (Auto) 0 0-0.8 10 ^3/uL Basophils # (Auto) 0 0-0.2 10 ^3/uL Nucleated Red Blood Cells 0.0 % Activated Partial Thromboplast Time 25.2 24.5-34.5 SEC Sodium Level 143 # 136-145 mmol/L Potassium Level 3.8 3.5-5.1 mmol/L Chloride Level 112 #H 98-107 mmol/L Carbon Dioxide Level 21 20-31 mmol/L Anion Gap 10 5-15 Blood Urea Nitrogen 90 *H 9-23 mg/dL Creatinine 3.05 H 0.700-1.30 mg/dL Glomerular Filtration Rate Calc 21 >90 mL/min BUN/Creatinine Ratio 29.5 H 10.0-20.0 Serum Glucose 84 # 74-106 mg/dL Calcium Level 8.6 L 8.7-10.4 mg/dL Troponin I High Sensitivity 1264 *H </=54 ng/L Random Vancomycin Level < 3.0 L 5-10 ug/mL Urine Color Colorless Yellow Urine Clarity Clear Clear Urine pH 5.0 5.0-9.0 Urine Specific [place] 1.011 1.001-1.035 Urine Protein Negative Negative Urine Ketones 1+ H Negative Urine Blood 1+ H Negative /uL Urine Nitrite Negative Negative Urine Bilirubin Negative Negative Urine Urobilinogen Normal Negative mg/dL Urine Leukocyte Esterase Negative Negative /uL Urine RBC <1 0 - 3 /hpf Urine Microscopic WBC < 1 0-3 /HPF Urine Squamous Epithelial Cells None seen <5 /hpf Urine Bacteria Few H None Seen /hpf Urine Glucose 4+ H Normal mg/dL Prothrombin Time 9.7 9.3-11.8 sec Prothrombin Time INR 0.91 0.9-1.15 Test 08/01/24 17:37 08/01/24 13:57 08/01/24 13:40 08/01/24 13:35 Range/Units Lactic Acid Level 1.6 0.4-2.0 mmol/L Phosphorus Level 8.6 H 2.4-5.1 mg/dL Magnesium Level 2.3 1.6-2.6 mg/dL Blood Gas Specimen Type Arterial Blood Gas Sample Site Right radial Blood Gas Patient Temperature 37.0 Arterial Blood Date Drawn [id number] Arterial Blood pH 7.132 *L 7.350-7.450 Arterial Blood Partial Pressure CO2 15.5 *L 35.0-48.0 mmHg Arterial Blood Partial Pressure O2 72.2 L 83.0-108.0 mmHg Arterial Blood HCO3 5.1 L 21.0-28.0 mmol/L Arterial Blood Oxygen Saturation 90.9 L 94.0-98.0 % Arterial Blood Base Excess -22.0 L -2.0-3.0 mmol/L Arterial Blood Oxyhemoglobin 90.4 L 94.0-98.0 % Arterial Blood Carboxyhemoglobin 0.3 L 0.5-1.5 % Arterial Blood Methemoglobin 0.2 0.0-1.5 % Jadiel Test Yes Blood Gas Total Hemoglobin 10.90 L 13.5-17.5 g/dL Blood Gas Modality Room air FiO2 % 21.0 Blood Gas Critical Value Read Back Yes Blood Gas Notified Whom chante Noyola md Blood Gas Notified Time [id number] Blood Gas Notified By Agribusiness Professor kailash arango Differential Total Cells Counted 100.0 100 Neutrophils % (Manual) 91 H 37.0-80.0 Band Neutrophils % (Manual) 0 Lymphocytes % (Manual) 9 L 10.0-50.0 Monocytes % (Manual) 0 0-12 Eosinophils % (Manual) 0 0-7 Basophils % (Manual) 0 0.0-2.0 Metamyelocytes % (manual) 0 Myelocytes % (Manual) 0 Promyelocytes % (Manual) 0 Blast Cells % (Manual) 0 Reactive Lymphocytes 0 Platelet Estimate Adequate Serum Osmolality 368 H 278-298 mOsm/kg Total Bilirubin 0.2 0.2-1.0 mg/dL Aspartate Amino Transferase (AST) 30 13-40 U/L Alanine Aminotransferase (ALT) 66 H 7-40 U/L Alkaline Phosphatase 126 H 46-116 U/L B-Type Natriuretic Peptide 451.45 0-100 pg/mL Total Protein 6.2 5.7-8.2 g/dL Albumin 4.2 3.2-4.8 g/dL Beta-Hydroxybutyric Acid > 4.500 H < 0.4 mmol/L Assessment nstemi severe DKA ckd advanced HTN HL AMS dementia CVA Plan/Recommendation ecg on admit showed afib vs ectopic atrial rhythm now hes SR and PACs high likelihood for underlying cad given IDDM, ckd recommend dapt, asa plavix recommend medical therapy given severe ckd, high risk for LIP CUTTER/HD with invasive eval dc heparin gtt Plan discussed with: Patient ELDERSUSI MD Aug 02, 2024 07:18
[2024-08-02] MEDS: InsuLIN REG 1unit/0.01ml Soln (100units/ml) SC SCH (08:00)
[2024-08-02] MEDS: ACCU-CHEK COMFORT CURVE STRIP VI SCH (08:18)
[2024-08-02 08:22] LABS: Anion Gap 15 (5-15); Calcium 8.8 mg/dL (8.7-10.4); Potassium 3.9 mmol/L (3.5-5.1); Sodium 144 mmol/L (136-145)
[2024-08-02 08:26] LABS: Carbon Dioxide 17 mmol/L (20-31); Chloride 112 mmol/L (98-107)
[2024-08-02 08:28] LABS: BUN/Creatinine Ratio 29.7 (10.0-20.0)
[2024-08-02 08:50] LABS: Glucose 151 mg/dL (74-106)
[2024-08-02 08:51] LABS: Blood Urea Nitrogen 83 mg/dL (9-23)
--- NOTE | 2024-08-02 08:56 | DVH ---
INDICATION: NORA TECHNIQUE: Multiple real-time sonographic images of the kidneys and bladder were obtained. COMPARISON: None FINDINGS: The right kidney measures 11 cm in length, which is normal in size. There is normal echogen icity of the right kidney. No hydronephrosis. 2 cm right renal cyst. The left kidney measures 11 cm in length, which is normal in size. There is normal echogenicity of th e left kidney. No hydronephrosis. No large intraluminal masses are seen in the bladder. Prior to voiding the bladder volume measures vo lume 404 cc. IMPRESSION: 1. Normal sonographic appearance of the kidneys. No hydronephrosis.
[2024-08-02] MEDS: INSULIN LANTUS (GLARGINE) 1 /0.01ml (100units/ml) SC SCH (10:00)
[2024-08-02] MEDS: CLOPIDOGREL BISULFATE 75 MG TAB PO SCH (10:03)
[2024-08-02] MEDS: ASPirin 81 mg TAB PO SCH (10:03)
[2024-08-02 11:52] LABS: Base Excess -7.4 mmol/L (-2.0-3.0)
[2024-08-02 14:00] LABS: Magnesium 1.8 mg/dL (1.6-2.6)
[2024-08-02 14:01] LABS: Phosphorus 2.6 mg/dL (2.4-5.1)
[2024-08-02 14:28] LABS: % Iron Saturation 24.6 % (20-55)
[2024-08-02 14:38] LABS: Potassium 3.9 mmol/L (3.5-5.1); Sodium 142 mmol/L (136-145)
[2024-08-02 14:39] LABS: Anion Gap 10 (5-15)
[2024-08-02 14:40] LABS: Calcium 8.2 mg/dL (8.7-10.4); Carbon Dioxide 18 mmol/L (20-31); Chloride 114 mmol/L (98-107)
[2024-08-02 14:44] LABS: BUN/Creatinine Ratio 33.2 (10.0-20.0)
[2024-08-02 14:45] LABS: Glucose 263 mg/dL (74-106)
[2024-08-02 14:46] LABS: Blood Urea Nitrogen 80 mg/dL (9-23)
[2024-08-02] MEDS: SODIUM CHLORIDE 0.9% 1,000 ML IV SCH (15:00)
--- NOTE | 2024-08-02 15:16 | DVHPN2 ---
Subjective Overnight events noted. Patient's metabolic acidosis and DKA resolved. May downgraded to telemetry, discontinue vancomycin. Reviewed: Care Plan Changes from previous H/P or p: No Changes Objective Vitals Vital Signs Date Time Temp Pulse Resp B/P (MAP) Pulse Ox O2 Delivery O2 Flow Rate FiO2 08/02/24 13:00 60 12 134/75 (94) 99 08/02/24 12:00 98.2 98.2 08/02/24 07:43 Room Air* 0 21 Intake/Output Intake and Output 08/02/24 07:00 Intake Total 5050.5 ml Balance 5050.5 ml Intake IV Total 5050.5 ml Exam HEENT pupils are reactive Neck is supple CV is S1-S2 regular rate and rhythm Respiratory diminished breath sounds bases GI positive bowel sound Extremity no edema WATER AEROBICS INSTRUCTOR no motor deficit Medications Current Medications Medications Dose Ordered Sig/Sukhdev Route Start Time Stop Time Status Last Admin Dose Admin Insulin Glargine 15 units DAILY SC 08/02/24 10:00 Acetaminophen/ Hydrocodone Bitart 1 tab Q4HP PRN PO 08/01/24 16:45 Ondansetron HCl 4 mg Q4HP PRN IV 08/01/24 16:45 Acetaminophen 650 mg Q6HP PRN PO 08/01/24 16:45 Nitroglycerin 0.4 mg Q5MINP PRN SL 08/01/24 16:45 Morphine Sulfate 2 mg Q30M PRN IV 08/01/24 16:45 Aspirin 81 mg DAILY PO 08/02/24 10:00 08/02/24 10:03 81 MG Atorvastatin Calcium 40 mg HS PO 08/02/24 22:00 Metoprolol Tartrate 25 mg BID PO 08/01/24 22:00 08/02/24 10:03 25 MG Diagnostic Test (Pha) 1 strip IQ4HR 08/02/24 08:00 08/02/24 08:18 1 STRIP Insulin Human Regular IQ4HR SC 08/02/24 08:00 08/02/24 11:49 4 UNITS Dextrose 50 ml UD PRN IV 08/02/24 05:15 Clopidogrel Bisulfate 75 mg DAILY PO 08/02/24 10:00 08/02/24 10:03 75 MG Sodium Chloride 1,000 ml @ 100 mls/hr Q10H IV 08/02/24 15:00 UNV Laboratory Results Laboratory Tests 08/02/24 03:49 08/02/24 14:00 Chemistry Test 08/01/24 17:37 08/01/24 19:41 08/02/24 03:49 08/02/24 07:53 Calcium Level 7.9 mg/dL (8.7-10.4) L 8.5 mg/dL (8.7-10.4) L 8.6 mg/dL (8.7-10.4) L 8.8 mg/dL (8.7-10.4) Magnesium Level 1.8 mg/dL (1.6-2.6) Phosphorus Level 2.6 mg/dL (2.4-5.1) Test 08/02/24 14:00 Calcium Level 8.2 mg/dL (8.7-10.4) L Coagulation Test 08/01/24 19:41 08/02/24 03:49 Prothrombin Time 9.7 sec (9.3-11.8) Prothrombin Time INR 0.91 (0.9-1.15) Activated Partial Thromboplast Time 25.3 SEC (24.5-34.5) 25.2 SEC (24.5-34.5) Urinalysis Test 08/01/24 20:21 Urine Color Colorless (Yellow) Urine Clarity Clear (Clear) Urine pH 5.0 (5.0-9.0) Urine Specific [place] 1.011 (1.001-1.035) Urine Protein Negative (Negative) Urine Ketones 1+ (Negative) H Urine Blood 1+ /uL (Negative) H Urine Nitrite Negative (Negative) Urine Bilirubin Negative (Negative) Urine Urobilinogen Normal mg/dL (Negative) Urine Leukocyte Esterase Negative /uL (Negative) Urine RBC <1 /hpf (0 - 3) Urine Microscopic WBC < 1 /HPF (0-3) Urine Squamous Epithelial Cells None seen /hpf (<5) Urine Bacteria Few /hpf (None Seen) H Urine Glucose 4+ mg/dL (Normal) H Blood Gas Results Test 08/02/24 11:43 Arterial Blood pH 7.429 (7.350-7.450) FiO2 % 21.0 Microbiology Microbiology Date/Time Source Procedure Growth Status 08/01/24 13:34 Blood Blood Culture - Preliminary NO GROWTH AFTER 24 HOURS OF INCUBATION. Resulted Assessment/Plan Assessment/Plan 69-year-old male with a known history of insulin-dependent diabetes mellitus type 2, hypertension, Alzheimer dementia, CKD, GERD presented to the hospital with altered mental status and high blood sugars found to have 1. Severe diabetic ketoacidosis, resolved 2. Anion gap metabolic acidosis secondary to 1. , improved 3. Insulin-dependent diabetes mellitus currently in DKA, resolved 4. AKA with underlying CKD , improving 5. Acute metabolic encephalopathy with underlying Alzheimer dementia 6. Hypertension 7. GERD 8. Hyperkalemia 9 NSTEMI, medical management per Cardiology -IV fluids, aspirin Plavix statin -long-acting insulin, diabetic education. Plan discussed with: Patient, Other My Orders Orders - SHUKRI MENDES MD Procedure Category Date Status Time Admit ADMIT 08/01/24 Transmitted 16:31 Code Status CODE 08/01/24 Transmitted 16:31 Hydrocodone-Acet PHA 08/01/24 In Process 5/325mg Tab ([place] 16:45 Ondansetron Hcl PHA 08/01/24 In Process (Zofran) 16:45 Fall Risk Precautions ISAIAH 08/01/[address] 16:31 Npo (Nothing By DIET 08/01/24 Transmitted Mouth) Diet Dinner Pt Request For Service PT 08/01/24 Logged 16:31 Condition: Critical ISAIAH 08/01/24 In Process 16:31 Acetaminophen Tablet PHA 08/01/24 In Process (Tylenol Tablet) 16:45 Nitroglycerin PHA 08/01/24 In Process Sublingual (Ntrostat 16:45 Morphine Sulfate PHA 08/01/24 In Process Injection 16:45 Stat Ekg For Chest ISAIAH 08/01/24 In Process Pain 16:31 Notify Md Of Changes ISAIAH 08/01/24 In Process From Base 16:31 Freelance Writer For ISAIAH 08/01/24 In Process 24 Hours 16:31 Emergency Dysrhythmia ISAIAH 08/01/24 In Process Protocol 16:31 Rhythm Strips Once ISAIAH 08/01/24 In Process Every Shift 16:31 Oxygen By Nasal RT 08/01/24 Transmitted Cannula 16:31 *[facility] CONS 08/01/24 Transmitted -[place] 16:33 * Cardiology Consult CONS 08/01/24 Transmitted 19:02 Aspirin Tablet PHA 08/02/24 In Process 10:00 Atorvastatin (Lipitor) PHA 08/02/24 In Process 22:00 Metoprolol Tartrate PHA 08/01/24 In Process Tablet (Lopressor Ta 22:00 * Cardiology Consult CONS 08/01/24 Transmitted 19:40 Abg W/ Co-Ox RT 08/02/24 Logged 11:14 Date of Service: Aug 02, 2024 Billing Provider: SHUKRI MENDES MD Common Visit Codes: NOT BILLABLE SHUKRI MENDES MD Aug 02, 2024 15:16
--- NOTE | 2024-08-02 15:24 | DVHCONRES ---
Date Seen: Aug 02, 2024 Resident Creating Document: GAY NICHOLS RESIDENT Referring Physician Reason for Consultation NORA on CKD History of Present Illness 69-year-old male patient with past medical history of Alzheimer dementia, type 2 diabetes, hypertension, GERD, patient was brought to the emergency department with a chief complaint of altered level of consciousness and markedly elevated blood glucose levels, patient was started on insulin drip for diabetic ketoacidosis management and IV fluids. Patient has since transitioned to subcutaneous insulin therapy. Nephrology consultation was requested due to acute kidney injury possibly superimposed on chronic kidney disease given the elevated BUN and creatinine levels. The patient's renal function is improving, but additionally elevated troponins were noted suggesting demand ischemia in the setting of DKA and volume depletion. Currently the patient remains slightly disoriented attributed to his underlying dementia and he denies acute complaints such as chest pain abdominal pain or dyspnea. Family History: Family history: Cardiovascular disease Family history: Diabetes mellitus Allergies: Coded Allergies: NO KNOWN ALLERGIES (Unverified , 02/02/14) Home Meds Reported Medications Alendronate Sodium (Alendronate Sodium) 70 Mg Tab, 1 TAB PO QWEEKLY, #4 TAB 3 Refills 04/20/22 Levothyroxine Sodium (Levothyroxine Sodium) 112 Mcg Tab, 125 MCG PO DAILY 04/20/22 Levothyroxine Sodium (Levothyroxine Sodium) 25 Mcg Tab 04/20/22 Insulin Glargine (Lantus Solostar) 100 Unit/Ml Inj, SC 04/20/22 Omeprazole (Omeprazole Dr) 20 Mg Cap, 1 CAP PO DAILYPRN 04/20/22 Current Medications Current Medications Medications (Trade) Dose Ordered Sig/Sukhdev Route PRN Reason Start Time Stop Time Status Last Admin Sodium Chloride 1,000 ml @ 250 mls/hr Q4H IV 08/01/24 18:00 08/01/24 15:45 DC Sodium Chloride 1,000 ml @ 150 mls/hr Q6H40M IV 08/01/24 20:00 08/01/24 15:45 DC Insulin Glargine (Lantus) 15 units DAILY SC 08/02/24 10:00 Sodium Chloride 1,000 ml @ 150 mls/hr Q6H40M IV 08/01/24 16:45 08/02/24 14:57 DC 08/02/24 12:54 Acetaminophen/ Hydrocodone Bitart (Golconda 5/325MG Tab) 1 tab Q4HP PRN PO MODERATE PAIN (4-6 PAIN SCALE) 08/01/24 16:45 Ondansetron HCl (Zofran) 4 mg Q4HP PRN IV NAUSEA / VOMITING 08/01/24 16:45 Acetaminophen (Tylenol Tablet) 650 mg Q6HP PRN PO PAIN SCALE 1-3 OR TEMP>100.4 08/01/24 16:45 Nitroglycerin (Ntrostat Sublingual) 0.4 mg Q5MINP PRN SL FOR CHEST PAIN 08/01/24 16:45 Morphine Sulfate 2 mg Q30M PRN IV FOR CHEST PAIN 08/01/24 16:45 Insulin Human (Reg)/Sodium Chloride 100 ml @ 0.5 mls/hr Q24H IV 08/01/24 16:45 08/01/24 16:43 DC Insulin Human (Reg)/Sodium Chloride 100 ml @ 0.5 mls/hr Q24H IV 08/01/24 16:45 08/01/24 18:46 DC 08/01/24 16:45 Insulin Human (Reg)/Sodium Chloride 100 ml @ 0.5 mls/hr Q24H IV 08/01/24 18:45 08/02/24 05:15 DC 08/01/24 18:45 Vancomycin HCl 0 ml @ 0 mls/hr UD IV 08/01/24 19:15 08/02/24 15:04 DC Aspirin 81 mg DAILY PO 08/02/24 10:00 08/02/24 10:03 Atorvastatin Calcium (Lipitor) 40 mg HS PO 08/02/24 22:00 Metoprolol Tartrate (Lopressor Tablet) 25 mg BID PO 08/01/24 22:00 08/02/24 10:03 Heparin Sodium/ Dextrose 250 ml @ 9 mls/hr Q24H IV 08/01/24 20:00 08/02/24 07:22 DC 08/01/24 21:45 Diagnostic Test (Pha) (Accu-Chek Comfort Curve T) 1 strip IQ4HR 08/02/24 08:00 08/02/24 08:18 Insulin Human Regular (InsuLIN R) IQ4HR SC 08/02/24 08:00 08/02/24 11:49 Dextrose 50 ml UD PRN IV Blood Sugar LESS THAN 60 08/02/24 05:15 Clopidogrel Bisulfate (Plavix) 75 mg DAILY PO 08/02/24 10:00 08/02/24 10:03 Sodium Chloride 1,000 ml @ 100 mls/hr Q10H IV 08/02/24 15:00 UNV Review of Systems Constitutional: No: Fever, Chills, Sweats, Weakness, Malaise, Other Eyes: No: Pain, Vision change, Conjunctivae inflammation, Eyelid inflammation, Other, Redness ENT: No: Ear pain, Ear discharge, Nose pain, Nose discharge, Nose congestion, Mouth pain, Mouth swelling, Throat pain, Throat swelling, Other Respiratory: Cough present No Wheezing, Hemoptysis, Pleuritic Pain, Sputum, Wheezing, Other Cardiovascular: No: Chest Pain, Palpitations, Orthopnea, Paroxysmal Noc. Dyspnea, Edema, Lt Headedness, Other Gastrointestinal: No: Nausea, Vomiting, Abdominal Pain, Diarrhea, Constipation, Melena, Hematochezia, Other Musculoskeletal: No: other, neck pain, shoulder pain, arm pain, back pain, hand pain, leg pain, foot pain Neurological:; No: Weakness, Numbness, Incoordination, Change in speech, Confusion, Seizures Vital Signs Vital Signs Date Time Temp Pulse Resp B/P (MAP) Pulse Ox O2 Delivery O2 Flow Rate FiO2 08/02/24 13:00 60 12 134/75 (94) 99 08/02/24 12:00 98.2 98.2 08/02/24 07:43 Room Air* 0 21 Physical Exam Examination General Appearance: Alert, Oriented X2, Cooperative, No acute distress Respiratory: Clear to auscultation, Normal air movement Cardiovascular: Regular rate, Normal S1, Normal S2 Abdominal: Normal bowel sounds Extremities: No cyanosis, No edema, Normal pulses, No tenderness/swelling Skin: No rashes, No breakdown Neuro: Normal speech, Strength at 4/5 X4 ext, Normal tone, Sensation intact, Cranial nerves 3-12 NL, Reflexes 2+ Labs/Diagnostic Data Labs Test 08/02/24 14:00 08/02/24 11:43 08/02/24 10:55 08/02/24 04:40 Range/Units Sodium Level 142 136-145 mmol/L Potassium Level 3.9 3.5-5.1 mmol/L Chloride Level 114 H 98-107 mmol/L Carbon Dioxide Level 18 L 20-31 mmol/L Anion Gap 10 5-15 Blood Urea Nitrogen 80 *H 9-23 mg/dL Creatinine 2.41 H 0.700-1.30 mg/dL Glomerular Filtration Rate Calc 28 >90 mL/min BUN/Creatinine Ratio 33.2 H 10.0-20.0 Serum Glucose 263 #H 74-106 mg/dL Calcium Level 8.2 L 8.7-10.4 mg/dL Iron Level 58 L 65-175 ug/dL Total Iron Binding Capacity 236 L 250-425 ug/dL Percent Iron Saturation 24.6 20-55 % Ferritin 262.5 22-322 ng/mL Vitamin D 25-Hydroxy 14.1 L 30.0-100 ng/mL Blood Gas Specimen Type Arterial Blood Gas Sample Site Right radial Blood Gas Patient Temperature 37.0 Arterial Blood Date Drawn [id number] Arterial Blood pH 7.429 7.350-7.450 Arterial Blood Partial Pressure CO2 23.8 L 35.0-48.0 mmHg Arterial Blood Partial Pressure O2 79.5 L 83.0-108.0 mmHg Arterial Blood HCO3 15.4 L 21.0-28.0 mmol/L Arterial Blood Oxygen Saturation 95.5 94.0-98.0 % Arterial Blood Base Excess -7.4 L -2.0-3.0 mmol/L Arterial Blood Oxyhemoglobin 94.9 94.0-98.0 % Arterial Blood Carboxyhemoglobin 0.1 L 0.5-1.5 % Arterial Blood Methemoglobin 0.5 0.0-1.5 % Jadiel Test Yes Blood Gas Total Hemoglobin 10.70 L 13.5-17.5 g/dL Blood Gas Modality Room air FiO2 % 21.0 Troponin I High Sensitivity 1634 *H </=54 ng/L POC Glucose 79 70-106 mg/dl Test 08/02/24 03:49 08/01/24 20:21 08/01/24 19:41 08/01/24 17:37 Range/Units White Blood Count 9.5 4.4-10.8 10^3/uL Red Blood Count 3.41 L 4.5-5.90 10^6/uL Hemoglobin 11.3 L 13.5-17.5 g/dL Hematocrit 33.1 L 41.0-53.0 % Mean Corpuscular Volume 97.1 80.0-100.0 fL Mean Corpuscular Hemoglobin 33.2 H 28.0-32.0 pg Mean Corpuscular Hemoglobin Concent 34.2 32.0-36.0 g/dL Red Cell Distribution Width 13.7 11.8-14.3 % Platelet Count 195 140-450 10^3/uL Mean Platelet Volume 7.3 6.9-10.8 fL Neutrophils (%) (Auto) 86.1 H 37.0-80.0 % Lymphocytes (%) (Auto) 7.4 L 10.0-50.0 % Monocytes (%) (Auto) 6.3 0.0-12.0 % Eosinophils (%) (Auto) 0.1 0.0-7.0 % Basophils (%) (Auto) 0.1 0.0-2.0 % Neutrophils # (Auto) 8.2 1.6-8.6 10 ^3/uL Lymphocytes # (Auto) 0.7 0.4-5.4 10 ^3/uL Monocytes # (Auto) 0.6 0-1.3 10 ^3/uL Eosinophils # (Auto) 0 0-0.8 10 ^3/uL Basophils # (Auto) 0 0-0.2 10 ^3/uL Nucleated Red Blood Cells 0.0 % Activated Partial Thromboplast Time 25.2 24.5-34.5 SEC Phosphorus Level 2.6 2.4-5.1 mg/dL Magnesium Level 1.8 1.6-2.6 mg/dL Parathyroid Hormone (Intact) 125.0 H 18.4-80.1 pg/mL Random Vancomycin Level < 3.0 L 5-10 ug/mL Urine Color Colorless Yellow Urine Clarity Clear Clear Urine pH 5.0 5.0-9.0 Urine Specific [place] 1.011 1.001-1.035 Urine Protein Negative Negative Urine Ketones 1+ H Negative Urine Blood 1+ H Negative /uL Urine Nitrite Negative Negative Urine Bilirubin Negative Negative Urine Urobilinogen Normal Negative mg/dL Urine Leukocyte Esterase Negative Negative /uL Urine RBC <1 0 - 3 /hpf Urine Microscopic WBC < 1 0-3 /HPF Urine Squamous Epithelial Cells None seen <5 /hpf Urine Bacteria Few H None Seen /hpf Urine Glucose 4+ H Normal mg/dL Prothrombin Time 9.7 9.3-11.8 sec Prothrombin Time INR 0.91 0.9-1.15 Lactic Acid Level 1.6 0.4-2.0 mmol/L Test 08/01/24 13:40 08/01/24 13:35 Range/Units Blood Gas Critical Value Read Back Yes Blood Gas Notified Whom chante Noyola md Blood Gas Notified Time [id number] Blood Gas Notified By Library Page kailash arango Differential Total Cells Counted 100.0 100 Neutrophils % (Manual) 91 H 37.0-80.0 Band Neutrophils % (Manual) 0 Lymphocytes % (Manual) 9 L 10.0-50.0 Monocytes % (Manual) 0 0-12 Eosinophils % (Manual) 0 0-7 Basophils % (Manual) 0 0.0-2.0 Metamyelocytes % (manual) 0 Myelocytes % (Manual) 0 Promyelocytes % (Manual) 0 Blast Cells % (Manual) 0 Reactive Lymphocytes 0 Platelet Estimate Adequate Serum Osmolality 368 H 278-298 mOsm/kg Total Bilirubin 0.2 0.2-1.0 mg/dL Aspartate Amino Transferase (AST) 30 13-40 U/L Alanine Aminotransferase (ALT) 66 H 7-40 U/L Alkaline Phosphatase 126 H 46-116 U/L B-Type Natriuretic Peptide 451.45 0-100 pg/mL Total Protein 6.2 5.7-8.2 g/dL Albumin 4.2 3.2-4.8 g/dL Beta-Hydroxybutyric Acid > 4.500 H < 0.4 mmol/L Microbiology Date/Time Source Procedure Growth Status 08/01/24 13:34 Blood Blood Culture - Preliminary NO GROWTH AFTER 24 HOURS OF INCUBATION. Resulted Assessment Assessment: Acute kidney injury likely on chronic kidney disease in the setting of volume depletion from DKA due to underlying uncontrolled type 2 diabetes Chronic kidney disease likely secondary to diabetic nephropathy and hypertensive nephropathy Acute encephalopathy likely metabolic secondary due to DKA in the setting of a patient with a Alzheimer dementia Hyperkalemia Pseudohyponatremia likely secondary to hyperglycemia NSTEMI type 2 likely due to demand ischemia secondary to DKA and volume depletion Plan Continue IV fluids cautiously normal saline at 100 mL/hour Strict I&Os monitoring with Tejada catheter Monitor daily BNP, urine studies Continue subcutaneous insulin regimen per hospitalist Monitor anion gap and bicarbonate daily to confirm resolution Monitor potassium levels Monitor troponin levels Addendum Patient seen and examined, plan discussed with resident. Agree with above, we will follow closely Plan discussed with: Patient GAY NICHOLS Aug 02, 2024 15:24 MARIELA WHITT MD Aug 02, 2024 19:51
[2024-08-02 21:12] VITALS: PULSE 77; RESP 18; O2SAT 97
[2024-08-02] MEDS: ATORVASTATIN 20 MG TAB PO SCH (22:00)
[2024-08-03] VITALS (9 sets, daily range): BP systolic 129–149; BP diastolic 60–75; PULSE 53–68; RESP 15–18; TEMP 98.4–99.5; O2SAT 93–99
[2024-08-03 05:00] LABS: Protein, Urine 24.7 mg/dL (1-14)
[2024-08-03 05:03] LABS: Creatinine, Urine 48.5 mg/dL (30.0-125.0); Urine Protein/Creatinine Ratio 0.51
[2024-08-03 10:33] LABS: Sodium 143 mmol/L (136-145)
[2024-08-03 10:34] LABS: Anion Gap 10 (5-15); Basophils # (auto) 0 10 ^3/uL (0-0.2); Basophils % (auto) 0.1 % (0.0-2.0); Calcium 8.8 mg/dL (8.7-10.4); Carbon Dioxide 20 mmol/L (20-31); Chloride 113 mmol/L (98-107); Eosinophils # (auto) 0 10 ^3/uL (0-0.8); Eosinophils % (auto) 0.2 % (0.0-7.0); Hematocrit 32.6 % (41.0-53.0); Hemoglobin 10.9 g/dL (13.5-17.5); Lymphocytes # (auto) 0.7 10 ^3/uL (0.4-5.4); Lymphocytes % (auto) 11.3 % (10.0-50.0); Mean Corpuscular Hgb Conc. 33.5 g/dL (32.0-36.0); Mean Corpuscular Volume 98.4 fL (80.0-100.0); Monocytes # (auto) 0.4 10 ^3/uL (0-1.3); Monocytes % (auto) 6.5 % (0.0-12.0); Neutrophils # (auto) 5.2 10 ^3/uL (1.6-8.6); Neutrophils % (auto) 81.9 % (37.0-80.0); Nucleated Red Blood Cells % 0.1 %; Platelet Count (auto) 161 10^3/uL (140-450); Potassium 3.3 mmol/L (3.5-5.1); Red Blood Cells 3.31 10^6/uL (4.5-5.90); Red Cell Distribution Width 13.7 % (11.8-14.3); White Blood Cell 6.4 10^3/uL (4.4-10.8)
[2024-08-03 10:39] LABS: BUN/Creatinine Ratio 28.1 (10.0-20.0); Blood Urea Nitrogen 47 mg/dL (9-23); Glucose 234 mg/dL (74-106)
[2024-08-03] MEDS ORDERED: ZINC10LO4 PO (11:49)
[2024-08-03] MEDS ORDERED: ASCO100C2 PO (11:49)
[2024-08-03] MEDS ORDERED: POTA-36 PO (11:49)
[2024-08-03] MEDS ORDERED: FURO20TA3 PO (11:49)
[2024-08-03] MEDS ORDERED: ASPI1TAB20 PO (11:49)
[2024-08-03] MEDS ORDERED: CYA100I IM (11:49)
[2024-08-03] MEDS ORDERED: GABA-1308 PO (11:49)
[2024-08-03] MEDS ORDERED: ATOR20TA PO (11:49)
[2024-08-03] MEDS ORDERED: ASPI-325 PO (12:00)
[2024-08-03] MEDS ORDERED: ATOR20TA50 PO (12:00)
[2024-08-03] MEDS ORDERED: MET25T PO (12:00)
[2024-08-03] MEDS ORDERED: CLOP75TA70 PO (12:00)
[2024-08-03] MEDS: POTASSIUM EFFERVESENT TAB 25 MEQ PO ONE (12:52)
--- NOTE | 2024-08-03 13:53 | DVHDS2 ---
Discharge Summary Date of Admission Aug 01, 2024 at 16:31 Date of Discharge: Aug 03, 2024 Labs/Diagnostic Data: Laboratory Results Test 08/03/24 12:46 08/03/24 09:30 08/03/24 04:10 08/02/24 14:00 POC Glucose 197 mg/dl (70-106) White Blood Count 6.4 10^3/uL (4.4-10.8) Red Blood Count 3.31 10^6/uL (4.5-5.90) Hemoglobin 10.9 g/dL (13.5-17.5) Hematocrit 32.6 % (41.0-53.0) Mean Corpuscular Volume 98.4 fL (80.0-100.0) Mean Corpuscular Hemoglobin 33.0 pg (28.0-32.0) Mean Corpuscular Hemoglobin Concent 33.5 g/dL (32.0-36.0) Red Cell Distribution Width 13.7 % (11.8-14.3) Platelet Count 161 10^3/uL (140-450) Mean Platelet Volume 7.6 fL (6.9-10.8) Neutrophils (%) (Auto) 81.9 % (37.0-80.0) Lymphocytes (%) (Auto) 11.3 % (10.0-50.0) Monocytes (%) (Auto) 6.5 % (0.0-12.0) Eosinophils (%) (Auto) 0.2 % (0.0-7.0) Basophils (%) (Auto) 0.1 % (0.0-2.0) Neutrophils # (Auto) 5.2 10 ^3/uL (1.6-8.6) Lymphocytes # (Auto) 0.7 10 ^3/uL (0.4-5.4) Monocytes # (Auto) 0.4 10 ^3/uL (0-1.3) Eosinophils # (Auto) 0 10 ^3/uL (0-0.8) Basophils # (Auto) 0 10 ^3/uL (0-0.2) Nucleated Red Blood Cells 0.1 % Sodium Level 143 mmol/L (136-145) Potassium Level 3.3 mmol/L (3.5-5.1) Chloride Level 113 mmol/L (98-107) Carbon Dioxide Level 20 mmol/L (20-31) Anion Gap 10 (5-15) Blood Urea Nitrogen 47 mg/dL (9-23) Creatinine 1.67 mg/dL (0.700-1.30) Glomerular Filtration Rate Calc 44 mL/min (>90) BUN/Creatinine Ratio 28.1 (10.0-20.0) Serum Glucose 234 mg/dL (74-106) Calcium Level 8.8 mg/dL (8.7-10.4) Urine Osmolality 481 mOsm/kg Urine Creatinine 48.50 mg/dL (30.0-125.0) Urine Protein/Creatinine Ratio 0.51 Urine Total Protein 24.7 mg/dL (1-14) Iron Level 58 ug/dL (65-175) Total Iron Binding Capacity 236 ug/dL (250-425) Percent Iron Saturation 24.6 % (20-55) Ferritin 262.5 ng/mL (22-322) Vitamin D 25-Hydroxy 14.1 ng/mL (30.0-100) Test 08/02/24 11:43 08/02/24 10:55 08/02/24 03:49 08/01/24 20:21 Blood Gas Specimen Type Arterial Blood Gas Sample Site Right radial Blood Gas Patient Temperature 37.0 Arterial Blood Date Drawn [id number] Arterial Blood pH 7.429 (7.350-7.450) Arterial Blood Partial Pressure CO2 23.8 mmHg (35.0-48.0) Arterial Blood Partial Pressure O2 79.5 mmHg (83.0-108.0) Arterial Blood HCO3 15.4 mmol/L (21.0-28.0) Arterial Blood Oxygen Saturation 95.5 % (94.0-98.0) Arterial Blood Base Excess -7.4 mmol/L (-2.0-3.0) Arterial Blood Oxyhemoglobin 94.9 % (94.0-98.0) Arterial Blood Carboxyhemoglobin 0.1 % (0.5-1.5) Arterial Blood Methemoglobin 0.5 % (0.0-1.5) Jadiel Test Yes Blood Gas Total Hemoglobin 10.70 g/dL (13.5-17.5) Blood Gas Modality Room air FiO2 % 21.0 Troponin I High Sensitivity 1634 ng/L (</=54) Activated Partial Thromboplast Time 25.2 SEC (24.5-34.5) Phosphorus Level 2.6 mg/dL (2.4-5.1) Magnesium Level 1.8 mg/dL (1.6-2.6) Parathyroid Hormone (Intact) 125.0 pg/mL (18.4-80.1) Random Vancomycin Level < 3.0 ug/mL (5-10) Urine Color Colorless (Yellow) Urine Clarity Clear (Clear) Urine pH 5.0 (5.0-9.0) Urine Specific [place] 1.011 (1.001-1.035) Urine Protein Negative (Negative) Urine Ketones 1+ (Negative) Urine Blood 1+ /uL (Negative) Urine Nitrite Negative (Negative) Urine Bilirubin Negative (Negative) Urine Urobilinogen Normal mg/dL (Negative) Urine Leukocyte Esterase Negative /uL (Negative) Urine RBC <1 /hpf (0 - 3) Urine Microscopic WBC < 1 /HPF (0-3) Urine Squamous Epithelial Cells None seen /hpf (<5) Urine Bacteria Few /hpf (None Seen) Urine Glucose 4+ mg/dL (Normal) Test 08/01/24 19:41 08/01/24 17:37 08/01/24 13:40 08/01/24 13:35 Prothrombin Time 9.7 sec (9.3-11.8) Prothrombin Time INR 0.91 (0.9-1.15) Lactic Acid Level 1.6 mmol/L (0.4-2.0) Blood Gas Critical Value Read Back Yes Blood Gas Notified Whom chante Noyola md Blood Gas Notified Time [id number] Blood Gas Notified By Cosmetician Apprentice kailash arango Differential Total Cells Counted 100.0 (100) Neutrophils % (Manual) 91 (37.0-80.0) Band Neutrophils % (Manual) 0 Lymphocytes % (Manual) 9 (10.0-50.0) Monocytes % (Manual) 0 (0-12) Eosinophils % (Manual) 0 (0-7) Basophils % (Manual) 0 (0.0-2.0) Metamyelocytes % (manual) 0 Myelocytes % (Manual) 0 Promyelocytes % (Manual) 0 Blast Cells % (Manual) 0 Reactive Lymphocytes 0 Platelet Estimate Adequate Serum Osmolality 368 mOsm/kg (278-298) Total Bilirubin 0.2 mg/dL (0.2-1.0) Aspartate Amino Transferase (AST) 30 U/L (13-40) Alanine Aminotransferase (ALT) 66 U/L (7-40) Alkaline Phosphatase 126 U/L (46-116) B-Type Natriuretic Peptide 451.45 pg/mL (0-100) Total Protein 6.2 g/dL (5.7-8.2) Albumin 4.2 g/dL (3.2-4.8) Beta-Hydroxybutyric Acid > 4.500 mmol/L (< 0.4) Other Laboratory Tests 08/03/24 09:30 Brief Hx & Hospital Course: 69-year-old male with a known history of insulin-dependent diabetes mellitus type 2, hypertension, Alzheimer dementia, CKD, GERD presented to the hospital with altered mental status and high blood sugars found to have severe diabetic ketoacidosis. Patient was started on insulin drip. Patient also had non-STEMI Thursday cardiology was consulted. Patient diabetic ketoacidosis has been resolved. Patient currently tolerating diet. Patient was seen by cardiology recommended medical management. Patient will be given aspirin statin beta- olivia and Plavix. Home has home safety evaluation and home medication management as per social sepsis. Condition at Discharge: Stable Final Diagnosis/Problems List 69-year-old male with a known history of insulin-dependent diabetes mellitus type 2, hypertension, Alzheimer dementia, CKD, GERD presented to the hospital with altered mental status and high blood sugars found to have 1. Severe diabetic ketoacidosis, resolved 2. Anion gap metabolic acidosis secondary to 1. , improved 3. Insulin-dependent diabetes mellitus currently in DKA, resolved 4. AKA with underlying CKD , improving 5. Acute metabolic encephalopathy with underlying Alzheimer dementia 6. Hypertension 7. GERD 8. Hyperkalemia 9 NSTEMI, medical management per Cardiology -IV fluids, aspirin Plavix statin Discharge Disposition: Home with Health Services SNF Discharge Will this Physician continue t: No Discharge Instruct/Medications Diet: Cardiac 2g Na,low cholest Diet comment: 1800 diabetic diet Activity: No Restrictions, As Tolerated Follow Up/Referral: Follow up with PCP in 1-2 weeks Follow up with Cardiology Dr. Mims 1-2 weeks Medications: As prescribed and reconciled. Discharge Statement: "Patient was advised to return to the ER or call 911 if any headaches, dizziness, shortness of breath, chest pain, abdominal pain, bleeding, fevers, or worsening of medical condition. Patient was counseled about treatment plan, medications, possible side effects, patientverbalized understanding. All questions were answered to the best of my ability. This discharge took greater then 30 minutes in planning, reviewing documentation, counseling the patient, and discussing with other team members." ASSESSMENT ASSESSMENT Assessment 69-year-old male with a known history of insulin-dependent diabetes mellitus type 2, hypertension, Alzheimer dementia, CKD, GERD presented to the hospital with altered mental status and high blood sugars found to have 1. Severe diabetic ketoacidosis, resolved 2. Anion gap metabolic acidosis secondary to 1. , improved 3. Insulin-dependent diabetes mellitus currently in DKA, resolved 4. AKA with underlying CKD , improving 5. Acute metabolic encephalopathy with underlying Alzheimer dementia 6. Hypertension 7. GERD 8. Hyperkalemia 9 NSTEMI, medical management per Cardiology -IV fluids, aspirin Plavix statin Date of Service: Aug 03, 2024 Billing Provider: SHUKRI MENDES MD Common Visit Codes: NOT BILLABLE SHUKRI MENDES MD Aug 03, 2024 13:52
--- NOTE | 2024-08-03 15:29 | DVHPN2 ---
Progress Note Date Seen: Aug 03, 2024 Resident Creating Document: GAY NICHOLS RESIDENT Has the PT tested + for MRSA If YES, has PT been informed?: No Medical Necessity Reason Pt with a Central, PICC or Fol: No Subjective Review of Systems Patient is seen and examined at bedside, he reports improvement in his symptoms, we will recommend to continue fluids for 1 more day and replace potassium as needed. Patient reports: No new complaints Objective vital signs Vital Sign Date Time Temp Pulse Resp B/P (MAP) Pulse Ox O2 Delivery O2 Flow Rate FiO2 08/03/24 13:30 98.7 54 18 137/72 (93) 93 98.7 08/03/24 08:10 Room Air* 0 21 Total Intake and Output 08/02/24 08/02/24 08/03/24 15:00 23:00 07:00 Intake Total 1050 ml 100 ml 450 ml Output Total 200 ml Balance 1050 ml 100 ml 250 ml medications Current Medications Medications Dose Ordered Sig/Sukhdev Route Start Time Stop Time Status Last Admin Dose Admin Insulin Glargine 15 units DAILY SC 08/02/24 10:00 08/03/24 11:10 15 UNITS Acetaminophen/ Hydrocodone Bitart 1 tab Q4HP PRN PO 08/01/24 16:45 Ondansetron HCl 4 mg Q4HP PRN IV 08/01/24 16:45 Acetaminophen 650 mg Q6HP PRN PO 08/01/24 16:45 Nitroglycerin 0.4 mg Q5MINP PRN SL 08/01/24 16:45 Morphine Sulfate 2 mg Q30M PRN IV 08/01/24 16:45 Aspirin 81 mg DAILY PO 08/02/24 10:00 08/03/24 08:57 81 MG Atorvastatin Calcium 40 mg HS PO 08/02/24 22:00 08/02/24 22:00 40 MG Metoprolol Tartrate 25 mg BID PO 08/01/24 22:00 08/03/24 08:57 25 MG Diagnostic Test (Pha) 1 strip IQ4HR 08/02/24 08:00 08/03/24 12:00 1 STRIP Insulin Human Regular IQ4HR SC 08/02/24 08:00 08/03/24 12:57 3 UNITS Dextrose 50 ml UD PRN IV 08/02/24 05:15 Clopidogrel Bisulfate 75 mg DAILY PO 08/02/24 10:00 08/03/24 08:57 75 MG Sodium Chloride 1,000 ml @ 100 mls/hr Q10H IV 08/02/24 15:00 08/03/24 04:47 100 MLS/HR Examination: GENERAL:Normal, HEENT:Normal, NECK:Normal, LUNGS:Normal, CVS:Normal, ABDOMEN:Normal, MSK:Normal, SKIN:Normal, NEURO:Normal, :Normal laboratory and microbiology Laboratory Tests 08/03/24 09:30 Test 08/03/24 09:30 Range/Units Serum Glucose 234 H 74-106 mg/dL Microbiology Date/Time Source Procedure Growth Status 08/01/24 13:34 Blood Blood Culture - Preliminary NO GROWTH AFTER 48 HOURS OF INCUBATION. Resulted Problem List/Assessment/Plan Problem List/Assessment/Plan Assessment: Acute kidney injury likely on chronic kidney disease in the setting of volume d epletion from DKA due to underlying uncontrolled type 2 diabetes Chronic kidney disease likely secondary to diabetic nephropathy and hypertensive nephropathy Acute encephalopathy likely metabolic secondary due to DKA in the setting of a patient with a Alzheimer dementia Hyperkalemia Pseudohyponatremia likely secondary to hyperglycemia NSTEMI type 2 likely due to demand ischemia secondary to DKA and volume depletion Plan Continue IV fluids cautiously normal saline at 100 mL/hour Replace potassium as needed, give 40 mEq potassium effervescent Kidney function improving Strict I&Os monitoring with Tejada catheter Case discussed with Dr. Gonzalez Code status: Full code Addendum Patient seen and examined, plan discussed with resident. Agree with above, we will follow closely Plan discussed with: Patient GAY NICHOLS Aug 03, 2024 15:29 MARIELA GONZALEZ MD Aug 03, 2024 17:14
== END 2024-08-03 19:12 | disposition home health service (06) | DRG 637 ==
LOC: EDBD 12:30 → EDUNIT# 12:30 → ER 12:42 → OVERFLOW 16:31 → TELE-WESTW 08-02 23:45
PROVIDERS: ADMIT Internal Medicine; ATTEND Internal Medicine
DX: E11.10 Type 2 diabetes mellitus with ketoacidosis without coma (principal); G93.41 Metabolic encephalopathy; J18.9 Pneumonia, unspecified organism; N17.0 Acute kidney failure with tubular necrosis; I21.A1 Myocardial infarction type 2; G30.9 Alzheimer's disease, unspecified; E87.5 Hyperkalemia; I48.91 Unspecified atrial fibrillation; F02.80 Dementia in other diseases classified elsewhere, unspecified severity, without behavioral disturbance, psychotic disturbance, mood disturbance, and anxiety; N18.9 Chronic kidney disease, unspecified; K21.9 Gastro-esophageal reflux disease without esophagitis; Z79.4 Long term (current) use of insulin; Z79.899 Other long term (current) drug therapy; Z87.11 Personal history of peptic ulcer disease; Z91.148 Patient's other noncompliance with medication regimen for other reason; Z82.49 Family history of ischemic heart disease and other diseases of the circulatory system; Z83.3 Family history of diabetes mellitus; E86.9 Volume depletion, unspecified
CPT/HCPCS: 36415; 36600; 70450; 71045; 76775; 80048; 80053; 80202; 81001; 82010; 82306; 82570; 82728; 82805; 82962; 83540; 83550; 83605; 83735; 83880; 83930; 83935; 83970; 84100; 84156; 84484; 85007; 85025; 85027; 85610; 85730; 87040; 93005; 96361; 96372; 96374; 97110; 97116; 97163; 99291; G0378; J1815

== ENCOUNTER 2025-03-07 13:54 | Inpatient (IN) | payer OTHER, MEDICAID ==
[~2025-03-07] VITALS: Ht 190.5 cm; Wt 68.1 kg
[~2025-03-07 13:54] MED LIST changes: +ASCO100C2 PO; +ASPI-325 PO; +ATOR20TA50 PO; +CLOP75TA70 PO; +CYA100I IM; +FURO20TA3 PO; +GABA-1308 PO; -LEVO112T4 PO; +MET25T PO; -OMEP1CAP70 PO; +ZINC10LO4 PO
--- NOTE | 2025-03-07 14:08 | ED.PDOC ---
History of Present Illness HPI Comments 69-year-old male with PMHx DM presents to the ED via EMS with a chief complaint of generalized weakness onset today. Per EMS, patient's called 911 due to patient experiencing generalized weakness, he fell, landing on his buttocks. He is currently experiencing back pain, buttock pain, dizziness, generalized weakness. He is A&O x2. Patient is a poor historian. No other symptoms or modifying factors present at this time. Time Seen by MD: 14:00 Reviewed Notes: Medications, Allergies Allergies: Coded Allergies: NO KNOWN ALLERGIES (Unverified , 03/07/25) Information Source: Patient, Emergency Med Personnel Mode of Arrival: EMS Severity: Moderate Timing: Hours Duration: Since onset Prehospital treatment: None Past Medical History PAST MEDICAL HISTORY: DM Surgical History: Unknown Family History Family History: Unknown Social History Smoker: Cigarettes Alcohol: Denies ETOH Use Drugs: Denies Drug Use Lives In: Home Constitutional: reports: weakness; denies: chills, diaphoresis, fatigue, fever, malaise, sweats, others EENTM: denies: blurred vision, double vision, ear bleeding, ear discharge, ear drainage, ear pain, ear ringing, eye pain, eye redness, hearing loss, mouth pain, mouth swelling, nasal discharge, nose bleeding, nose congestion, nose pain, photophobia, tearing, throat pain, throat swelling, voice changes, others Respiratory: denies: cough, hemoptysis, orthopnea, SOB at rest, shortness of breath, SOB with excertion, stridor, wheezing, others Cardiovascular: denies: chest pain, dizzy spells, diaphoresis, Dyspnea on exertion, edema, irregular heart beat, left arm pain, lightheadedness, palpitations, PND, syncope, others Gastrointestinal: denies: abdomen distended, abdominal pain, blood streaked bowels, constipated, diarrhea, dysphagia, difficulty swallowing, hematemesis, melena, nausea, poor appetite, poor fluid intake, rectal bleeding, rectal pain, vomiting, others Genitourinary: denies: burning, dysuria, flank pain, frequency, hematuria, incontinence, penile discharge, penile sore, pain, testicle pain, testicle swelling, urgency, others Neurological: reports: dizziness, weakness; denies: fainting, headache, left sided numbness, left sided weakness, numbness, paresthesia, pre-existing deficit, right sided numbness, right sided weakness, seizure, speech problems, tingling, tremors, others Musculoskeletal: reports: back pain, others (buttock pain); denies: gout, joint pain, joint swelling, muscle pain, muscle stiffness, neck pain Integumetry: denies: bruises, change in color, change in hair/nails, dryness, laceration, lesions, lumps, rash, wounds, others Allergic/Immunocompromised: denies: Difficulty Healing, Frequent Infections, Hives, Itching, others Hematologic/Lymphatic: denies: anemia, blood clots, easy bleeding, easy bruising, swollen glands, others Endocrine: denies: excessive hunger, excessive sweating, excessive thirst, excessive urination, flushing, intolerance to cold, intolerance to heat, unexplained weight gain, unexplained weight loss, others Psychiatric: denies: anxiety, bipolar disorder, depression, hopeless, panic disorder, schizophrenia, sleepless, suicidal, others All Other Systems: Reviewed and Negative Physical Exam General Appearance: Moderate Distress, Normal HEENT: Normal ENT Inspection, Pharynx Normal, TMs Normal Neck: Full Range of Motion, Non-Tender, Normal, Normal Inspection Respiratory: Chest Non-Tender, Lungs Clear, No Accessory Muscle Use, No Respiratory Distress, Normal Breath Sounds Cardiovascular: No Edema, No JVD, No Murmur, No Gallop, Normal Peripheral Pulses, Regular Rate/Rhythm Breast Exam: Deferred Gastrointestinal: No Organomegaly, Non Tender, No Pulsatile Mass, Normal Bowel Sounds, Soft Genitalia: Deferred Pelvic: Deferred Rectal: Deferred Extremities: No calf tenderness, Normal capillary refill, Normal inspection, Normal range of motion, Non-tender, No pedal edema Musculoskeletal : Apperance: Normal 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 Was a procedure done?: No EKG EKG : Pulse Rate (adult): 95 Cardiac Rhythm: NSR Differential Dx Considerations may include: Anemia Electrolyte imbalance X-Ray, Labs, Meds, VS Vital Signs Date Time Temp Pulse Resp B/P (MAP) Pulse Ox O2 Delivery O2 Flow Rate FiO2 03/07/25 14:16 95 03/07/25 14:00 98.1 103 18 121/80 93 98.1 03/07/25 13:57 95 Lab Test 03/07/25 14:49 Range/Units White Blood Count 10.5 4.4-10.8 10^3/uL Red Blood Count 4.86 4.5-5.90 10^6/uL Hemoglobin 15.2 13.5-17.5 g/dL Hematocrit 46.2 41.0-53.0 % Mean Corpuscular Volume 95.1 80.0-100.0 fL Mean Corpuscular Hemoglobin 31.4 28.0-32.0 pg Mean Corpuscular Hemoglobin Concent 33.0 32.0-36.0 g/dL Red Cell Distribution Width 15.4 H 11.8-14.3 % Platelet Count 169 140-450 10^3/uL Mean Platelet Volume 7.9 6.9-10.8 fL Neutrophils (%) (Auto) 89.2 H 37.0-80.0 % Lymphocytes (%) (Auto) 3.5 L 10.0-50.0 % Monocytes (%) (Auto) 7.2 0.0-12.0 % Eosinophils (%) (Auto) 0.0 0.0-7.0 % Basophils (%) (Auto) 0.1 0.0-2.0 % Neutrophils # (Auto) 9.4 H 1.6-8.6 10 ^3/uL Lymphocytes # (Auto) 0.4 0.4-5.4 10 ^3/uL Monocytes # (Auto) 0.8 0-1.3 10 ^3/uL Eosinophils # (Auto) 0 0-0.8 10 ^3/uL Basophils # (Auto) 0 0-0.2 10 ^3/uL Nucleated Red Blood Cells 0.1 % Sodium Level 137 136-145 mmol/L Potassium Level 3.8 3.5-5.1 mmol/L Chloride Level 100 98-107 mmol/L Carbon Dioxide Level 18 L 20-31 mmol/L Anion Gap 19 H 5-15 Blood Urea Nitrogen 98 *H 9-23 mg/dL Creatinine 4.03 H 0.700-1.30 mg/dL Glomerular Filtration Rate Calc 15 >90 mL/min BUN/Creatinine Ratio 24.3 H 10.0-20.0 Serum Glucose 470 *H 74-106 mg/dL Calcium Level 9.2 8.7-10.4 mg/dL Troponin I High Sensitivity 349 *H </=54 ng/L Patient alert. Generalized weakness. Vitals stable. Answering questions. He is not eating well. Failure to thrive. Establish intravenous access. Was given fluids. BUN creatinine elevated. Blood sugar elevated. Cardiac marker elevated. Explained to the patient. Continue monitoring. Time of 1ST Reevaluation: 14:30 Reevaluation 1ST: Unchanged Patient Education/Counseling: Diagnosis, Treatment, Prognosis Family Education/Counseling: No Family Present SEPSIS Sepsis Screen Physician Orders Chest Portable (03/07/25 14:06) Urinalysis (03/07/25 14:06) Electrocardigram (03/07/25 14:20) Vital Signs Date Time Temp Pulse Resp B/P (MAP) Pulse Ox O2 Delivery O2 Flow Rate FiO2 03/07/25 14:16 95 03/07/25 14:00 98.1 103 18 121/80 93 98.1 03/07/25 13:57 95 Laboratory Tests Test 03/07/25 14:49 White Blood Count 10.5 10^3/uL (4.4-10.8) Departure 1 Departure Time of Disposition: 14:16 Impression: Primary Impression: Failure to thrive Qualified Codes: R62.7 - Adult failure to thrive Additional Impressions: Demand ischemia Acute tubular necrosis Hyperglycemia Disposition: 09 ADMITTED INPATIENT Admit to: Med Surg Condition: Guarded Critical Care Note Critical Care Time?: No Stability Stability form required: No Heart Score Heart Score: Heart Score Response (Comments) Value History Slightly Suspicious 0 EKG Normal 0 Age >65 2 Risk Factors >3 or Hx ASHD 2 Troponin Normal limit 0 Total 4 I personally scribed for IESHA WILKERSON MD ([email or web address]) on 03/07/25 at 14:08. Electronically submitted by Esther Lundberg ([email or web address]). IESHA WILKERSON MD Mar 07, 2025 14:08
--- NOTE | 2025-03-07 14:49 | DVH ---
INDICATION: sob TECHNIQUE: Frontal view of the chest. COMPARISON: XY CHEST PORTABLE on DOS: 08/01/24, XY CHEST PORTABLE on DOS: 05/24/24, CHEST PORTABLE on DOS: 04/20/22, CXRP on DOS: 04/20/22 FINDINGS: . The heart and mediastinal contours are grossly unremarkable. There is no evidence of pleural disease. The lungs are clear. The bony structures of the chest are intact without fracture. IMPRESSION: 1. No evidence of acute disease.
[2025-03-07 15:01] LABS: Hematocrit 46.2 % (41.0-53.0); Hemoglobin 15.2 g/dL (13.5-17.5); Mean Corpuscular Hemoglobin 31.4 pg (28.0-32.0); Mean Corpuscular Volume 95.1 fL (80.0-100.0); Nucleated Red Blood Cells % 0.1 %
[2025-03-07 15:13] LABS: Chloride 100 mmol/L (98-107); Potassium 3.8 mmol/L (3.5-5.1); Sodium 137 mmol/L (136-145)
[2025-03-07 15:14] LABS: Anion Gap 19 (5-15); Calcium 9.2 mg/dL (8.7-10.4)
[2025-03-07 15:15] LABS: Carbon Dioxide 18 mmol/L (20-31)
[2025-03-07 15:19] LABS: BUN/Creatinine Ratio 24.3 (10.0-20.0)
[2025-03-07 15:22] LABS: Blood Urea Nitrogen 98 mg/dL (9-23); Glucose 470 mg/dL (74-106)
[2025-03-07 16:05] VITALS: PULSE 97; RESP 18; O2SAT 95
[2025-03-07] MEDS: SODIUM CHLORIDE 0.9% 1,000 ML IV ONE (16:25)
--- NOTE | 2025-03-07 17:40 | DVHINCON2 ---
Date of service: Mar 07, [address] Alvarado Reason for Consultation Acute kidney injury History of Present Illness Patient is 89 y/o male with PMH of DM is admitted for generalized weakness. On admission patient found to have elevated BUN and creatinine, nephrology is consulted for NORA Past Medical History DM Past Surgical History Patient denies Allergies: Coded Allergies: NO KNOWN ALLERGIES (Unverified , 03/07/25) Current Medications Current Medications Medications (Trade) Dose Ordered Sig/Sukhdev Route PRN Reason Start Time Stop Time Status Last Admin Sodium Chloride 1,000 ml @ 100 mls/hr Q10H IV 03/07/25 23:30 03/08/25 10:18 DC 03/08/25 09:15 Docusate Sodium (Colace Capsule) 100 mg BIDPRN PRN PO FOR CONSTIPATION 03/07/25 23:30 Acetaminophen (Tylenol Tablet) 650 mg Q6HP PRN PO PAIN SCALE 1-3 OR TEMP>100.4 03/07/25 23:30 Acetaminophen/ Hydrocodone Bitart ([place] 5/325MG Tab) 1 tab Q6HP PRN PO MODERATE PAIN (4-6 PAIN SCALE) 03/07/25 23:30 Ondansetron HCl (Zofran) 4 mg Q4HP PRN IV NAUSEA / VOMITING 03/07/25 23:30 Nitroglycerin (Ntrostat Sublingual) 0.4 mg Q5MINP PRN SL FOR CHEST PAIN 03/07/25 23:30 Morphine Sulfate 2 mg Q30M PRN IV FOR CHEST PAIN 03/07/25 23:30 Diagnostic Test (Pha) (Accu-Chek Comfort Curve T) 1 strip Q6HR 03/08/25 00:00 03/08/25 11:20 Insulin Human Regular (InsuLIN R) Q6HR SC 03/08/25 00:00 03/08/25 05:26 Dextrose 50 ml UD PRN IV Blood Sugar LESS THAN 60 03/07/25 23:30 Heparin Sodium (Porcine) 5,000 units Q12HR SC 03/08/25 10:00 Cancel Clopidogrel Bisulfate (Plavix) 75 mg DAILY PO 03/08/25 10:00 03/08/25 10:58 Atorvastatin Calcium (Lipitor) 20 mg DAILY PO 03/08/25 10:00 03/08/25 10:58 Ceftriaxone Sodium 50 ml @ 100 mls/hr DAILY@09 IV 03/08/25 00:30 03/08/25 09:15 Levothyroxine Sodium (Synthroid Tablet) 100 mcg QAM@0600 PO 03/08/25 06:00 03/08/25 05:27 Dopamine HCl/ Dextrose 250 ml @ 5.108 mls/ hr Q24H IV 03/08/25 10:15 03/08/25 11:01 Sodium Bicarbonate 50 ml/ Sodium Chloride 1,050 ml @ 100 mls/hr [id number] IV 03/08/25 10:15 03/08/25 12:23 Potassium Chloride 100 ml @ 50 mls/hr Q2H IV 03/08/25 10:15 03/08/25 14:14 DC 03/08/25 14:23 Review of Systems All 12 items ROS reviewed with patient none is significant except what is mentioned in the HPI H&P Exam Vital Signs/I&O Vital Sign Date Time Temp Pulse Resp B/P (MAP) Pulse Ox O2 Delivery O2 Flow Rate FiO2 03/08/25 13:00 83 19 128/66 (86) 94 03/08/25 12:00 98.3 98.3 03/08/25 07:30 Room Air* 0 21 Intake and Output 03/07/25 03/08/25 19:00 07:00 Intake Total 1000 ml 890 ml Output Total 1200 ml Balance 1000 ml -310 ml Intake Oral 240 ml IV Total 1000 ml 650 ml Output Urine Total 1200 ml # Voids 1 Physical Exam Patient awake and alert Lung clear b/l COR: RRR GI: WNL : [place] Ext: no CCE Neuro: nonfocal Labs/Diagnostic Data Labs/Diagnostic Data Laboratory Tests Test 03/08/25 12:06 03/08/25 11:17 03/08/25 05:55 03/08/25 02:15 Range/Units Troponin I High Sensitivity 188 *H 222 *H </=54 ng/L POC Glucose 92 70-106 mg/dl Triglycerides Level 177 H < 150 mg/dL Cholesterol Level 158 < 200 mg/dL LDL Cholesterol 65 < 100 mg/dL HDL Cholesterol 63 H 40-59 mg/dL Thyroid Stimulating Hormone (TSH) 4.88 H 0.55-4.78 uIU/mL White Blood Count 7.7 # 4.4-10.8 10^3/uL Red Blood Count 4.64 4.5-5.90 10^6/uL Hemoglobin 14.6 13.5-17.5 g/dL Hematocrit 43.4 41.0-53.0 % Mean Corpuscular Volume 93.5 80.0-100.0 fL Mean Corpuscular Hemoglobin 31.4 28.0-32.0 pg Mean Corpuscular Hemoglobin Concent 33.6 32.0-36.0 g/dL Red Cell Distribution Width 15.4 H 11.8-14.3 % Platelet Count 142 140-450 10^3/uL Mean Platelet Volume 8.0 6.9-10.8 fL Neutrophils (%) (Auto) 80.5 H 37.0-80.0 % Lymphocytes (%) (Auto) 8.5 L 10.0-50.0 % Monocytes (%) (Auto) 10.8 0.0-12.0 % Eosinophils (%) (Auto) 0.1 0.0-7.0 % Basophils (%) (Auto) 0.1 0.0-2.0 % Neutrophils # (Auto) 6.2 1.6-8.6 10 ^3/uL Lymphocytes # (Auto) 0.7 0.4-5.4 10 ^3/uL Monocytes # (Auto) 0.8 0-1.3 10 ^3/uL Eosinophils # (Auto) 0 0-0.8 10 ^3/uL Basophils # (Auto) 0 0-0.2 10 ^3/uL Nucleated Red Blood Cells 0.0 % Sodium Level 137 136-145 mmol/L Potassium Level 3.2 L 3.5-5.1 mmol/L Chloride Level 105 98-107 mmol/L Carbon Dioxide Level 17 L 20-31 mmol/L Anion Gap 15 5-15 Blood Urea Nitrogen 90 *H 9-23 mg/dL Creatinine 2.93 H 0.700-1.30 mg/dL Glomerular Filtration Rate Calc 22 >90 mL/min BUN/Creatinine Ratio 30.7 H 10.0-20.0 Serum Glucose 294 H 74-106 mg/dL Hemoglobin A1c 8.7 H <5.7 % A1C Calcium Level 8.5 L 8.7-10.4 mg/dL Test 03/07/25 23:40 03/07/25 22:25 03/07/25 19:05 03/07/25 17:50 Range/Units Urine Color Colorless Yellow Urine Clarity Turbid H Clear Urine pH 5.5 5.0-9.0 Urine Specific [place] 1.014 1.001-1.035 Urine Protein 1+ H Negative Urine Ketones 1+ H Negative Urine Blood 2+ H Negative /uL Urine Nitrite Negative Negative Urine Bilirubin Negative Negative Urine Urobilinogen Normal Negative mg/dL Urine Leukocyte Esterase 3+ Negative /uL Urine RBC 6 0 - 3 /hpf Urine Microscopic WBC 135 H 0-3 /HPF Urine Squamous Epithelial Cells None seen <5 /hpf Urine Bacteria Many H None Seen /hpf Urine Hyaline Casts Few 0 - 2 /lpf Urine Mucus Few None Seen Urine Sperm Present None Seen /hpf Urine Creatinine 97.60 30.0-125.0 mg/dL Urine Protein/Creatinine Ratio 0.95 Urine Sodium 16 L 40-220 mmol/L Urine Glucose 4+ H Normal mg/dL Urine Total Protein 92.3 H 1-14 mg/dL Sodium Level 138 136-145 mmol/L Potassium Level 3.7 3.5-5.1 mmol/L Chloride Level 104 98-107 mmol/L Carbon Dioxide Level 17 L 20-31 mmol/L Anion Gap 17 H 5-15 Blood Urea Nitrogen 93 *H 9-23 mg/dL Creatinine 3.21 H 0.700-1.30 mg/dL Glomerular Filtration Rate Calc 20 >90 mL/min BUN/Creatinine Ratio 29.0 H 10.0-20.0 Serum Glucose 360 #H 74-106 mg/dL Calcium Level 8.6 L 8.7-10.4 mg/dL Troponin I High Sensitivity 268 *H </=54 ng/L POC Glucose 345 H 70-106 mg/dl Lactic Acid Level 1.5 0.4-2.0 mmol/L Uric Acid 10.3 H 3.7-9.2 mg/dL Phosphorus Level 3.3 2.4-5.1 mg/dL Magnesium Level 2.1 1.6-2.6 mg/dL B-Type Natriuretic Peptide 35.68 0-100 pg/mL Amylase Level 168 H 30-118 U/L Hepatitis B Surface Antigen Negative Negative Hepatitis C Antibody Negative Negative Test 03/07/25 17:45 03/07/25 14:49 Range/Units POC Glucose 406 *H 70-106 mg/dl White Blood Count 10.5 4.4-10.8 10^3/uL Red Blood Count 4.86 4.5-5.90 10^6/uL Hemoglobin 15.2 13.5-17.5 g/dL Hematocrit 46.2 41.0-53.0 % Mean Corpuscular Volume 95.1 80.0-100.0 fL Mean Corpuscular Hemoglobin 31.4 28.0-32.0 pg Mean Corpuscular Hemoglobin Concent 33.0 32.0-36.0 g/dL Red Cell Distribution Width 15.4 H 11.8-14.3 % Platelet Count 169 140-450 10^3/uL Mean Platelet Volume 7.9 6.9-10.8 fL Neutrophils (%) (Auto) 89.2 H 37.0-80.0 % Lymphocytes (%) (Auto) 3.5 L 10.0-50.0 % Monocytes (%) (Auto) 7.2 0.0-12.0 % Eosinophils (%) (Auto) 0.0 0.0-7.0 % Basophils (%) (Auto) 0.1 0.0-2.0 % Neutrophils # (Auto) 9.4 H 1.6-8.6 10 ^3/uL Lymphocytes # (Auto) 0.4 0.4-5.4 10 ^3/uL Monocytes # (Auto) 0.8 0-1.3 10 ^3/uL Eosinophils # (Auto) 0 0-0.8 10 ^3/uL Basophils # (Auto) 0 0-0.2 10 ^3/uL Nucleated Red Blood Cells 0.1 % Sodium Level 137 136-145 mmol/L Potassium Level 3.8 3.5-5.1 mmol/L Chloride Level 100 98-107 mmol/L Carbon Dioxide Level 18 L 20-31 mmol/L Anion Gap 19 H 5-15 Blood Urea Nitrogen 98 *H 9-23 mg/dL Creatinine 4.03 H 0.700-1.30 mg/dL Glomerular Filtration Rate Calc 15 >90 mL/min BUN/Creatinine Ratio 24.3 H 10.0-20.0 Serum Glucose 470 *H 74-106 mg/dL Calcium Level 9.2 8.7-10.4 mg/dL Troponin I High Sensitivity 349 *H </=54 ng/L Assessment NORA superimposed on CKd secondary to hemodynamic mediated Acute pancreatitis DM type II, uncontrolled DKA Dehydration NSTEMI REC: Closely monitor fluids and lytes avoid nephrotoxins Tejada's catheter Strict I&O's Check UA, urine lytes and protein Check kidney US I agree with IVF hydration KCl replacement Insulin SS GI consult Cardiology consult Will continue to follow Patient seen and examined by myself in the ER. I discussed my plan of care with the patient and the primary nurse at bedside I would like to thank Dr. Alvarado for the consult, will follow with you Plan discussed with: Patient LONNIE PARKS MD Mar 07, 2025 17:40
[2025-03-07] MEDS: InsuLIN REG 1unit/0.01ml Soln (100units/ml) IV ONE (18:03)
[2025-03-07 18:25] LABS: Magnesium 2.1 mg/dL (1.6-2.6)
--- NOTE | 2025-03-07 18:32 | DVH ---
RENAL ULTRASOUND History: NORA Comparison: US KIDNEY on DOS: 08/02/24 Technique: Multiple real-time sonographic images of the kidney and bladder were obtained in conjunction with Doppler imaging. Findings: The kidneys are echogenic. The right kidney measures 9.9 cm and demonstrates no evidence of hydronephrosis, perinephric fluid collection, or shadowing stone. There is a right renal cyst measuring 1.5 cm. The left kidney measures 9.3 cm and demonstrates no evidence of hydronephrosis, perinephric fluid collection, or shadowing stone. Urinary bladder: Prevoid urinary bladder volume is 208 mL. Prostate volume 53 cc. Impression: Echogenic kidneys, which can be seen with medical renal disease. Enlarged prostate. Correlate with PSA levels.
[2025-03-07 22:55] LABS: Chloride 104 mmol/L (98-107); Potassium 3.7 mmol/L (3.5-5.1); Sodium 138 mmol/L (136-145)
[2025-03-07 22:56] LABS: Anion Gap 17 (5-15)
[2025-03-07 23:01] LABS: BUN/Creatinine Ratio 29.0 (10.0-20.0)
[2025-03-07 23:06] LABS: Calcium 8.6 mg/dL (8.7-10.4); Carbon Dioxide 17 mmol/L (20-31); Glucose 360 mg/dL (74-106)
[2025-03-07 23:15] LABS: Blood Urea Nitrogen 93 mg/dL (9-23)
[2025-03-07] MEDS ORDERED: MORPHINE SULFATE INJ 2 MG/ml SYRG IV PRN (23:30)
[2025-03-07] MEDS ORDERED: ACETAMINOPHEN 325 MG TAB PO PRN (23:30)
[2025-03-07] MEDS ORDERED: NITROGLYCERIN 0.4 MG SL TAB SL PRN (23:30)
[2025-03-07] MEDS ORDERED: DEXTROSE (50%) 50ML SYRG IV PRN (23:30)
[2025-03-07] MEDS ORDERED: DOCUSATE SOD 100 MG CAP PO PRN (23:30)
[2025-03-07 23:58] LABS: Urine Protein, UAD 1+ (Negative)
[2025-03-08] MEDS: ACCU-CHEK COMFORT CURVE STRIP VI SCH (00:05)
[2025-03-08 00:06] LABS: Protein, Urine 92.3 mg/dL (1-14)
[2025-03-08] MEDS: SODIUM CHLORIDE 0.9% 1,000 ML IV SCH (00:10)
[2025-03-08] MEDS: InsuLIN REG 1unit/0.01ml Soln (100units/ml) SC SCH (00:11)
[2025-03-08] MEDS: LEVOTHYROXINE SODIUM 100 MCG TAB PO ONE (00:11)
--- NOTE | 2025-03-08 02:15 | DVHHP2 ---
FLAKO BRIGHT RENEWABLE ENERGY CONSULTANT 03/08/25 0215: History of Present Illness Reason for Visit: Generalized weakness and falls History of Present Illness 69-year-old male with past medical history of DM, CVA, ID, cardiac arrest 2022 presents with complaints of generalized weakness and falls. Information in this HPI is limited due to the patient being a poor historian. Acquired with the assistance of the patient's via telephone who is also a limited historian. Patient had also been endorsing dizziness. During the emergency department evaluation Na 137, K3.8, CO2 18, anion gap 19, BUN 98, creatinine 4.03, BG 470. Troponin 349. UA positive for ketones, blood, leukocyte esterase. CXR no evidence of acute disease. CBC is unremarkable. At this time there are no complaints of fevers, chills, shortness of breath, chest pain, palpitations, nausea, vomiting, abdominal pain, leg swelling. 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 Endocrine: Diabetes Smoke: No ALCOHOL: occassional Drugs: None Lives: with Family Review of Systems Constitutional: Yes: Weakness; No: Fever, Chills, Sweats, Malaise, Other Eyes: No: Pain, Vision change, Conjunctivae inflammation, Eyelid inflammation, Other, Redness ENT: No: Ear pain, Ear discharge, Nose pain, Nose discharge, Nose congestion, Mouth pain, Mouth swelling, Throat pain, Throat swelling, Other Respiratory: No: Cough, Dry, Shortness of breath, SOB with excertion, Wheezing, Hemoptysis, Pleuritic Pain, Sputum, Wheezing, Other Cardiovascular: No: Chest Pain, Palpitations, Orthopnea, Paroxysmal Noc. Dyspnea, Edema, Lt Headedness, Other Gastrointestinal: No: Nausea, Vomiting, Abdominal Pain, Diarrhea, Constipation, Melena, Hematochezia, Other Genitourinary: No Dysuria, No Frequency, No Incontinence, No Hematuria, No Retention, No Other Musculoskeletal: back pain; No: other, neck pain, shoulder pain, arm pain, hand pain, leg pain, foot pain Skin: No: Rash, Lesions, Jaundice, Bruising, Other Neurological: Weakness; No: Numbness, Incoordination, Change in speech, Confusion, Seizures, Other Allergies: Coded Allergies: NO KNOWN ALLERGIES (Unverified , 03/07/25) Medications Current Medications Medications Dose Ordered Sig/Sukhdev Route Start Time Stop Time Status Last Admin Dose Admin Sodium Chloride 1,000 ml @ 100 mls/hr Q10H IV 03/07/25 23:30 03/08/25 00:10 100 MLS/HR Docusate Sodium 100 mg BIDPRN PRN PO 03/07/25 23:30 Acetaminophen 650 mg Q6HP PRN PO 03/07/25 23:30 Acetaminophen/ Hydrocodone Bitart 1 tab Q6HP PRN PO 03/07/25 23:30 Ondansetron HCl 4 mg Q4HP PRN IV 03/07/25 23:30 Nitroglycerin 0.4 mg Q5MINP PRN SL 03/07/25 23:30 Morphine Sulfate 2 mg Q30M PRN IV 03/07/25 23:30 Diagnostic Test (Pha) 1 strip Q6HR 03/08/25 00:00 03/08/25 00:05 1 STRIP Insulin Human Regular Q6HR SC 03/08/25 00:00 03/08/25 00:11 12 UNITS Dextrose 50 ml UD PRN IV 03/07/25 23:30 Heparin Sodium (Porcine) 5,000 units Q12HR SC 03/08/25 10:00 Clopidogrel Bisulfate 75 mg DAILY PO 03/08/25 10:00 Atorvastatin Calcium 20 mg DAILY PO 03/08/25 10:00 Ceftriaxone Sodium 50 ml @ 100 mls/hr DAILY@09 IV 03/08/25 00:30 03/08/25 00:38 100 MLS/HR Levothyroxine Sodium 100 mcg QAM@0600 PO 03/08/25 06:00 UNV Exam Vital Signs Vital Signs Date Time Temp Pulse Resp B/P (MAP) Pulse Ox O2 Delivery O2 Flow Rate FiO2 03/08/25 01:00 88 22 115/67 (83) 95 03/07/25 19:30 98.4 98.4 03/07/25 19:30 Room Air* 0 21 General Appearance: Alert (Alert to self and place), Cooperative, moderate distress HEENT: Atraumatic, PERRLA, EOMI Respiratory: Clear to auscultation, Normal air movement Cardiovascular: Regular rate, Normal S1, Normal S2 Abdominal: Normal bowel sounds, Soft, No tenderness Extremities: No cyanosis, No edema Skin: No rashes Neuro: Normal speech, Strength at 5/5 X4 ext Psych/Mental Status: Mental status NL, Mood NL Labs/Xrays Labs Test 03/07/25 23:40 03/07/25 22:25 03/07/25 19:05 03/07/25 17:50 Range/Units Urine Color Colorless Yellow Urine Clarity Turbid H Clear Urine pH 5.5 5.0-9.0 Urine Specific [place] 1.014 1.001-1.035 Urine Protein 1+ H Negative Urine Ketones 1+ H Negative Urine Blood 2+ H Negative /uL Urine Nitrite Negative Negative Urine Bilirubin Negative Negative Urine Urobilinogen Normal Negative mg/dL Urine Leukocyte Esterase 3+ Negative /uL Urine RBC 6 0 - 3 /hpf Urine Microscopic WBC 135 H 0-3 /HPF Urine Squamous Epithelial Cells None seen <5 /hpf Urine Bacteria Many H None Seen /hpf Urine Hyaline Casts Few 0 - 2 /lpf Urine Mucus Few None Seen Urine Sperm Present None Seen /hpf Urine Creatinine 97.60 30.0-125.0 mg/dL Urine Protein/Creatinine Ratio 0.95 Urine Sodium 16 L 40-220 mmol/L Urine Glucose 4+ H Normal mg/dL Urine Total Protein 92.3 H 1-14 mg/dL Sodium Level 138 136-145 mmol/L Potassium Level 3.7 3.5-5.1 mmol/L Chloride Level 104 98-107 mmol/L Carbon Dioxide Level 17 L 20-31 mmol/L Anion Gap 17 H 5-15 Blood Urea Nitrogen 93 *H 9-23 mg/dL Creatinine 3.21 H 0.700-1.30 mg/dL Glomerular Filtration Rate Calc 20 >90 mL/min BUN/Creatinine Ratio 29.0 H 10.0-20.0 Serum Glucose 360 #H 74-106 mg/dL Calcium Level 8.6 L 8.7-10.4 mg/dL Troponin I High Sensitivity 268 *H </=54 ng/L POC Glucose 345 H 70-106 mg/dl Lactic Acid Level 1.5 0.4-2.0 mmol/L Uric Acid 10.3 H 3.7-9.2 mg/dL Phosphorus Level 3.3 2.4-5.1 mg/dL Magnesium Level 2.1 1.6-2.6 mg/dL B-Type Natriuretic Peptide 35.68 0-100 pg/mL Amylase Level 168 H 30-118 U/L Test 03/07/25 14:49 Range/Units White Blood Count 10.5 4.4-10.8 10^3/uL Red Blood Count 4.86 4.5-5.90 10^6/uL Hemoglobin 15.2 13.5-17.5 g/dL Hematocrit 46.2 41.0-53.0 % Mean Corpuscular Volume 95.1 80.0-100.0 fL Mean Corpuscular Hemoglobin 31.4 28.0-32.0 pg Mean Corpuscular Hemoglobin Concent 33.0 32.0-36.0 g/dL Red Cell Distribution Width 15.4 H 11.8-14.3 % Platelet Count 169 140-450 10^3/uL Mean Platelet Volume 7.9 6.9-10.8 fL Neutrophils (%) (Auto) 89.2 H 37.0-80.0 % Lymphocytes (%) (Auto) 3.5 L 10.0-50.0 % Monocytes (%) (Auto) 7.2 0.0-12.0 % Eosinophils (%) (Auto) 0.0 0.0-7.0 % Basophils (%) (Auto) 0.1 0.0-2.0 % Neutrophils # (Auto) 9.4 H 1.6-8.6 10 ^3/uL Lymphocytes # (Auto) 0.4 0.4-5.4 10 ^3/uL Monocytes # (Auto) 0.8 0-1.3 10 ^3/uL Eosinophils # (Auto) 0 0-0.8 10 ^3/uL Basophils # (Auto) 0 0-0.2 10 ^3/uL Nucleated Red Blood Cells 0.1 % SEPSIS Sepsis Screen Date sepsis recognized/suspect: Mar 07, 2025 Time Sepsis recognized/suspect: 1931 Recent Procedure: No On Antibiotic Therapy: No Respiratory Rate >20: No Heart Rate >90: Yes Temp<36 C (96.8 F) or >38.3 C: No SBP <90 or MAP <65 mmHG: No New Acute Mental Status Change: No Is the patient on CPAP, BIPAP,: No Physician Orders Admit (03/07/25 23:22) Code Status (03/07/25 23:22) Vital Signs .PER UNIT PROTOCOL (03/07/25 23:22) Review Orders With Adm. (03/07/25 23:22) Encourage Activity As Tolerate (03/07/25 23:22) Consistent Carb(Ccho)Diabetes (03/08/25 Breakfast) Sodium Chloride 0.9% (03/07/25 23:30) Oxygen By Face Mask (03/07/25 23:22) Docusate Sodium Capsule (Colace Capsule) (03/07/25 23:30) Acetaminophen Tablet (Tylenol Tablet) (03/07/25 23:30) Notify Md Of Changes From Base (03/07/25 23:22) Advance Directive (03/07/25 23:22) Echo 2d Mode Cardiac Dop (03/07/25 23:22) Basic Metabolic Panel (03/08/25 05:00) Basic Metabolic Panel (03/09/25 05:00) Basic Metabolic Panel (03/10/25 05:00) Basic Metabolic Panel (03/11/25 05:00) Basic Metabolic Panel (03/12/25 05:00) Complete Blood Count (03/08/25 05:00) Complete Blood Count (03/09/25 05:00) Complete Blood Count (03/10/25 05:00) Complete Blood Count (03/11/25 05:00) Complete Blood Count (03/12/25 05:00) Urine Bacterial Culture (03/07/25 23:22) Patient Condition (03/07/25:) Allergies (03/07/25 23:22) Hydrocodone-Acet 5/325mg Tab ([place] 5/32 (03/07/25 23:30) Ondansetron Hcl (Zofran) (03/07/25 23:30) Sequential Compression Device (03/07/25 ) Nitroglycerin Sublingual (Ntrostat Subli (03/07/25 23:30) Morphine Sulfate Injection (03/07/25 23:30) Stat Ekg For Chest Pain (03/07/25 23:22) Notify Md Of Changes From Base (03/07/25 23:22) Business And Marketing Teacher For 24 Hours (03/07/25 23:22) Emergency Dysrhythmia Protocol (03/07/25 23:22) Rhythm Strips Once Every Shift (03/07/25 23:22) Oxygen By Nasal Cannula (03/07/25 23:22) Glucose Blood (Accu-Chek Comfort Curve T (03/08/25 00:00) Insulin R (Human) (Insulin R) (03/08/25 00:00) Dextrose 50% Syringe (03/07/25 23:30) * Cardiology Consult (03/07/25 23:22) Insert Tejada Catheter QSHIFT (03/07/25 23:22) Strict I & O QSHIFT (03/07/25 23:22) Pt Request For Service (03/07/25 23:22) Heparin Sodium (Porcine) (03/08/25 10:00) Communication Order (03/07/25 23:22) Clopidogrel Bisulfate (Plavix) (03/08/25 10:00) Atorvastatin (Lipitor) (03/08/25 10:00) Ceftriaxone 1gm/50ml (Rocephin) (03/08/25 00:30) Levothyroxine Tablet (Synthroid Tablet) (03/08/25 06:00) Vital Signs Date Time Temp Pulse Resp B/P (MAP) Pulse Ox O2 Delivery O2 Flow Rate FiO2 03/08/25 01:00 88 22 115/67 (83) 95 03/07/25 23:30 90 21 117/70 (86) 95 03/07/25 21:30 91 20 119/66 (83) 95 03/07/25 19:30 98.4 97 20 107/67 (80) 95 98.4 03/07/25 19:30 Room Air* 0 21 03/07/25 18:29 92 16 126/76 (93) 94 Laboratory Tests Test 03/07/25 14:49 03/07/25 17:50 White Blood Count 10.5 10^3/uL (4.4-10.8) Lactic Acid Level 1.5 mmol/L (0.4-2.0) Medications Medications Dose Ordered Sig/Sukhdev Route Start Time Stop Time Status Last Admin Dose Admin Ceftriaxone Sodium 50 ml @ 100 mls/hr DAILY@09 IV 03/08/25 00:30 03/08/25 00:38 100 MLS/HR Diagnostic Test (Pha) 1 strip Q6HR 03/08/25 00:00 03/08/25 00:05 1 STRIP Insulin Human Regular Q6HR SC 03/08/25 00:00 03/08/25 00:11 12 UNITS Insulin Human Regular 10 units ONCE ONCE IV 03/07/25 18:00 03/07/25 18:01 DC 03/07/25 18:03 10 UNITS Levothyroxine Sodium 100 mcg ONCE ONCE PO 03/07/25 23:30 03/07/25 23:52 DC 03/08/25 00:11 100 MCG Sodium Chloride 1,000 ml @ 100 mls/hr Q10H IV 03/07/25 23:30 03/08/25 00:10 100 MLS/HR Sodium Chloride 1,000 ml @ 1,000 mls/hr Q1H ONCE IV 03/07/25 14:15 03/07/25 15:14 DC 03/07/25 16:25 1,000 MLS/HR Assessment/Plan Assessment/Plan Acute kidney injury DKA / metabolic acidosis. DM with hyperglycemia Elevated troponin Prostatomegaly UTI with hematuria Generalized weakness Falls Hx CVA Hx ID Plan Admit to telemetry Nephrology consult. Monitor BMP. Trend BUN/creatinine. Strict I&O. Correct electrolytes as needed. Indwelling Tejada catheter. Cardiology consult. Echocardiogram. Continue home medications. Blood glucose check with regular insulin sliding scale coverage IVF IV ABX Continue home medications. Physical therapy evaluation. DVT ppx heparin SQ Plan discussed with: Patient, Spouse (Paulette via telephone) My Orders Orders - FLAKO BRIGHT NP Procedure Category Date Status Time Admit ADMIT 03/07/25 Transmitted 23:22 Code Status CODE 03/07/25 Transmitted 23:22 Vital Signs [facility] 03/07/25 In Process 23:22 Review Orders With ISAIAH 03/07/25 In Process Adm. 23:22 Encourage Activity As ISAIAH 03/07/25 In Process Tolerate 23:22 Consistent DIET 03/08/25 Transmitted Carb(Ccho)Diabetes Breakfast Sodium Chloride 0.9% PHA 03/07/25 In Process 23:30 Oxygen By Face Mask RT 03/07/25 Transmitted 23:22 Docusate Sodium PHA 03/07/25 In Process Capsule (Colace 23:30 Acetaminophen Tablet PHA 03/07/25 In Process (Tylenol Tablet) 23:30 Notify Of Changes ISAIAH 03/07/25 In Process From Base 23:22 Advance Directive ISAIAH 03/07/25 In Process 23:22 Echo 2d Mode Cardiac US 03/07/25 Logged DOP 23:22 Basic Metabolic Panel LAB 03/08/25 Logged 05:00 Basic Metabolic Panel LAB 03/09/25 Verified 05:00 Basic Metabolic Panel LAB 03/10/25 Verified 05:00 Basic Metabolic Panel LAB 03/11/25 Verified 05:00 Basic Metabolic Panel LAB 03/12/25 Verified 05:00 Complete Blood Count LAB 03/08/25 Logged 05:00 Complete Blood Count LAB 03/09/25 Verified 05:00 Complete Blood Count LAB 03/10/25 Verified 05:00 Complete Blood Count LAB 03/11/25 Verified 05:00 Complete Blood Count LAB 03/12/25 Verified 05:00 Urine Bacterial ZULEMA 03/07/25 In Process Culture 23:22 Patient Condition ORDERS 03/07/25 Transmitted 23:22 Allergies ISAIAH 03/07/25 In Process 23:22 Hydrocodone-Acet PHA 03/07/25 In Process 5/325mg Tab ([place] 23:30 Ondansetron Hcl PHA 03/07/25 In Process (Zofran) 23:30 Sequential ISAIAH 03/07/25 In Process Compression Device Nitroglycerin PHA 03/07/25 In Process Sublingual (Ntrostat 23:30 Morphine Sulfate PHA 03/07/25 In Process Injection 23:30 Stat Ekg For Chest ISAIAH 03/07/25 In Process Pain 23:22 Notify Md Of Changes ISAIAH 03/07/25 In Process From Base 23:22 Business And Marketing Teacher For ISAIAH 03/07/25 In Process 24 Hours 23:22 Emergency Dysrhythmia ISAIAH 03/07/25 In Process Protocol 23:22 Rhythm Strips Once ISAIAH 03/07/25 In Process Every Shift 23:22 Oxygen By Nasal RT 03/07/25 Transmitted Cannula 23:22 Glucose Blood PHA 03/08/25 In Process (Accu-Chek Comfort 00:00 Insulin R (Human) PHA 03/08/25 In Process (Insulin R) 00:00 Dextrose 50% Syringe PHA 03/07/25 In Process 23:30 * Cardiology Consult CONS 03/07/25 Transmitted 23:22 Insert Tejada Catheter ISAIAH 03/07/25 In Process 23:22 Strict I & O ISAIAH 03/07/25 In Process 23:22 Pt Request For Service PT 03/07/25 Logged 23:22 Heparin Sodium PHA 03/08/25 In Process (Porcine) 10:00 Communication Order ORDERS 03/07/25 Transmitted 23:22 Clopidogrel Bisulfate PHA 03/08/25 In Process (Plavix) 10:00 Atorvastatin (Lipitor) PHA 03/08/25 In Process 10:00 Ceftriaxone 1gm/50ml PHA 03/08/25 In Process (Rocephin) 00:30 Levothyroxine Tablet PHA 03/08/25 Logged (Synthroid Tablet) 06:00 Date of Service: Mar 08, 2025 Billing Provider: SHUKRI MENDES MD Common Visit Codes: NOT BILLABLE SHUKRI MENDES MD 03/08/25 1112: Review of Systems Allergies: Coded Allergies: NO KNOWN ALLERGIES (Unverified , 03/07/25) Additional Comments Additional Comments Additional Comments 69-year-old male who is a very poor historian. There is no family member at bedside. Most of the history obtained from patient's bedside RN as well as ER records and H&P. 69-year-old male with a known history of CVA, diabetes mellitus type 2 insulin dependent, hypertension, dyslipidemia initially presented to the hospital with a generalized weakness dizziness found to have 1. Acute kidney injury suspected secondary to vasomotor nephropathy hemodynamically mediated 2. Metabolic acidosis secondary to acute kidney injury 3. Hyperglycemia in the setting of diabetes mellitus type 2 4. Elevated troponin suspect NSTEMI type 2 secondary to decreased renal clearance 5. Urinary tract infection with a hematuria 6. BPH 7. History of CVA -IV bicarb drip, monitoring renal functioning, regular insulin sliding scale, check hemoglobin A1c -2D echo, cardiology consultation, nephrology consultation. FLAKO BRIGHT NP Mar 08, 2025 02:15 SHUKRI MENDES MD Mar 08, 2025 11:12
[2025-03-08 02:34] LABS: Hematocrit 43.4 % (41.0-53.0); Hemoglobin 14.6 g/dL (13.5-17.5); Mean Corpuscular Hemoglobin 31.4 pg (28.0-32.0); Mean Corpuscular Volume 93.5 fL (80.0-100.0); Nucleated Red Blood Cells % 0.0 %
[2025-03-08 02:45] LABS: Chloride 105 mmol/L (98-107); Sodium 137 mmol/L (136-145)
[2025-03-08 02:46] LABS: Anion Gap 15 (5-15)
[2025-03-08 02:51] LABS: BUN/Creatinine Ratio 30.7 (10.0-20.0)
[2025-03-08 03:13] LABS: Calcium 8.5 mg/dL (8.7-10.4); Carbon Dioxide 17 mmol/L (20-31); Glucose 294 mg/dL (74-106); Potassium 3.2 mmol/L (3.5-5.1)
[2025-03-08 03:14] LABS: Blood Urea Nitrogen 90 mg/dL (9-23)
[2025-03-08] MEDS: LEVOTHYROXINE SODIUM 100 MCG TAB PO SCH (05:27)
[2025-03-08 07:30] VITALS: PULSE 91; RESP 20; O2SAT 95
[2025-03-08] MEDS: POTASSIUM EFFERVESENT TAB 25 MEQ PO ONE (08:34)
[2025-03-08 08:57] LABS: Cholesterol 158 mg/dL (< 200)
[2025-03-08 09:01] LABS: HDL Cholesterol 63 mg/dL (40-59); Triglycerides 177 mg/dL (< 150)
[2025-03-08] MEDS ORDERED: HEPARIN SODIUM (PORCINE) 5000 UNITS/ML 1ML VIAL SC SCH (10:00)
--- NOTE | 2025-03-08 10:21 | DVHPN2 ---
Progress Note Date Seen: Mar 08, 2025 Medical Necessity Reason Pt with a Central, PICC or Fol: No Subjective Patient reports: No new complaints Other Systems: Patient seen and examined by myself today in follow-up Objective vital signs Vital Sign Date Time Temp Pulse Resp B/P (MAP) Pulse Ox O2 Delivery O2 Flow Rate FiO2 03/08/25 07:30 91 20 95 Room Air* 0 21 03/08/25 07:30 98.5 121/71 (88) 98.5 Total Intake and Output 03/07/25 03/07/25 03/08/25 15:00 23:00 07:00 Intake Total 1000 ml 890 ml Output Total 1200 ml Balance 1000 ml -310 ml medications Current Medications Medications Dose Ordered Sig/Sukhdev Route Start Time Stop Time Status Last Admin Dose Admin Sodium Chloride 1,000 ml @ 100 mls/hr Q10H IV 03/07/25 23:30 03/08/25 09:15 100 MLS/HR Docusate Sodium 100 mg BIDPRN PRN PO 03/07/25 23:30 Acetaminophen 650 mg Q6HP PRN PO 03/07/25 23:30 Acetaminophen/ Hydrocodone Bitart 1 tab Q6HP PRN PO 03/07/25 23:30 Ondansetron HCl 4 mg Q4HP PRN IV 03/07/25 23:30 Nitroglycerin 0.4 mg Q5MINP PRN SL 03/07/25 23:30 Morphine Sulfate 2 mg Q30M PRN IV 03/07/25 23:30 Diagnostic Test (Pha) 1 strip Q6HR 03/08/25 00:00 03/08/25 05:27 1 STRIP Insulin Human Regular Q6HR SC 03/08/25 00:00 03/08/25 05:26 6 UNITS Dextrose 50 ml UD PRN IV 03/07/25 23:30 Heparin Sodium (Porcine) 5,000 units Q12HR SC 03/08/25 10:00 Cancel Clopidogrel Bisulfate 75 mg DAILY PO 03/08/25 10:00 Atorvastatin Calcium 20 mg DAILY PO 03/08/25 10:00 Ceftriaxone Sodium 50 ml @ 100 mls/hr DAILY@09 IV 03/08/25 00:30 03/08/25 09:15 100 MLS/HR Levothyroxine Sodium 100 mcg QAM@0600 PO 03/08/25 06:00 03/08/25 05:27 100 MCG Examination: LUNGS:Normal, CVS:Normal, MSK:Normal laboratory and microbiology Laboratory Tests 03/08/25 02:15 Test 03/08/25 02:15 Range/Units Serum Glucose 294 H 74-106 mg/dL Problem List/Assessment/Plan Problem List/Assessment/Plan NORA superimposed on CKd secondary to hemodynamic mediated, FeNa < 1% DM type II, uncontrolled Urinary tract infection DKA Dehydration NSTEMI Acute pancreatitis Metabolic acidosis Hypokalemia REC: Kidney function is improving Increased urine output Tejada's catheter Strict I&O's kidney US reported bilateral echogenic kidney IVF 1/2 NS with 50 mEq sodium bicarb at 100 cc/hour KCl replacement IV antibiotics Insulin SS Cardiology consult Will continue to follow Plan discussed with: Patient My Orders My Orders Orders - LONNIE PARKS MD Procedure Category Date Status Time Hepatitis C Antibody LAB 03/07/25 In Process 17:31 Hepatitis B Surface LAB 03/07/25 In Process Antigen 17:31 Kidney US 03/07/25 Resulted 17:31 Strict I&O ED NURSING 03/07/25 Transmitted Dopamine Drip PHA 03/08/25 Verified 10:15 1/2nsw Sodium PHA 03/08/25 Verified Bicarbonate Drip 10:15 LONNIE PARKS MD Mar 08, 2025 10:21
[2025-03-08] MEDS: ATORVASTATIN 20 MG TAB PO SCH (10:58)
[2025-03-08] MEDS: CLOPIDOGREL BISULFATE 75 MG TAB PO SCH (10:58)
[2025-03-08] MEDS: DOPamine 1600MCG/ML D5W 250 ML IV SCH (11:01)
[2025-03-08] MEDS: POTASSIUM CHL 20MEQ/100ML 100 ML IV SCH (11:15)
[2025-03-08 11:26] LABS: Hepatitis B Surface Antigen Negative (Negative); Hepatitis C Antibody Negative (Negative)
--- NOTE | 2025-03-08 12:21 | DVHINCON2 ---
Date Seen: Mar 08, 2025 Referring Physician KEVIN Conklin Reason for Consultation Elevated troponin History of Present Illness This is a 69-year-old male patient who presents to emergency room with chief complaint of generalized weakness. The patient reports he was experiencing generalized weakness for one day prior to emergency room arrival. He also reports a fall after he felt as though his "legs gave out" from under him. He denies any loss of consciousness or hitting his head. Cardiology has been consulted at this time for elevated troponin level. The patient denies all cardiac symptoms including chest pain, palpitations, shortness of breath, or dizziness. Initial twelve lead electrocardiogram done in the emergency room reveals normal sinus rhythm with nonspecific ST depression to inferior leads. Initial troponin level of 349ng/L with down trend thereafter. Significant past medical history includes hypertension, insulin-dependent type 2 diabetes mellitus, and history of CVA. The patient is a very poor historian. Previous provider documented history of AL with cardiac arrest in 2022, which patient denies at time of assessment. He denies any previous cardiac workup. (Patient noted to have previous visits to this facility under different ). Past Medical History Past medical history reviewed. No other significant than mentioned above. Past Surgical History Unspecified right hip surgery Family History Family history reviewed. Social History Patient states he drinks approximately 1-2 beers per day Denies illicit drug use Denies tobacco Allergies: Coded Allergies: NO KNOWN ALLERGIES (Unverified , 02/02/14) Home Meds Active Scripts Metoprolol Tartrate (Lopressor) 25 Mg Tb, 25 MG PO BID for 60 Days, #120 TAB Prov:SHUKRI MENDES MD 08/03/24 Clopidogrel Bisulfate (CLOPIDOGREL) 75 Mg Tab, 75 MG PO DAILY for 60 Days, #60 TAB Prov:SHUKRI MENDES MD 08/03/24 Atorvastatin Calcium (ATORVASTATIN CALCIUM) 20 Mg Tab, 40 MG PO HS, #60 TAB Prov:SHUKRI MENDES MD 08/03/24 Aspirin (Aspirin Low Dose) 81 Mg Tab, 81 MG PO DAILY for 60 Days, #60 TAB Prov:SHUKRI MENDES MD 08/03/24 Reported Medications Gabapentin (Gabapentin) 100 Mg Cap, 1 CAP PO TID, #90 CAP 2 Refills 08/03/24 Furosemide (Furosemide) 20 Mg Tab, 1 TAB PO DAILY, #90 TAB 1 Refill 08/03/24 Ascorbic Acid (Vitamin C) 100 Mg Chw, 100 MG PO, TAB.CHEW 08/03/24 Zinc Gluconate (Zinc) 10 Mg Kassidy, 10 MG PO 08/03/24 Vitamin B12 (Vitamin B-12) 1,000 Mcg/1 Ml Ij, 1000 MCG IM, INJ 08/03/24 Alendronate Sodium (Alendronate Sodium) 70 Mg Tab, 1 TAB PO QWEEKLY, #4 TAB 3 Refills 04/20/22 Levothyroxine Sodium (Levothyroxine Sodium) 25 Mcg Tab 04/20/22 Insulin Glargine (Lantus Solostar) 100 Unit/Ml Inj, SC 04/20/22 Home Meds Home medications reviewed. Current Medications Current Medications Medications (Trade) Dose Ordered Sig/Sukhdev Route PRN Reason Start Time Stop Time Status Last Admin Sodium Chloride 1,000 ml @ 100 mls/hr Q10H IV 03/07/25 23:30 03/08/25 10:18 DC 03/08/25 09:15 Docusate Sodium (Colace Capsule) 100 mg BIDPRN PRN PO FOR CONSTIPATION 03/07/25 23:30 Acetaminophen (Tylenol Tablet) 650 mg Q6HP PRN PO PAIN SCALE 1-3 OR TEMP>100.4 03/07/25 23:30 Acetaminophen/ Hydrocodone Bitart (Leigh 5/325MG Tab) 1 tab Q6HP PRN PO MODERATE PAIN (4-6 PAIN SCALE) 03/07/25 23:30 Ondansetron HCl (Zofran) 4 mg Q4HP PRN IV NAUSEA / VOMITING 03/07/25 23:30 Nitroglycerin (Ntrostat Sublingual) 0.4 mg Q5MINP PRN SL FOR CHEST PAIN 03/07/25 23:30 Morphine Sulfate 2 mg Q30M PRN IV FOR CHEST PAIN 03/07/25 23:30 Diagnostic Test (Pha) (Accu-Chek Comfort Curve T) 1 strip Q6HR 03/08/25 00:00 03/08/25 11:20 Insulin Human Regular (InsuLIN R) Q6HR SC 03/08/25 00:00 03/08/25 05:26 Dextrose 50 ml UD PRN IV Blood Sugar LESS THAN 60 03/07/25 23:30 Heparin Sodium (Porcine) 5,000 units Q12HR SC 03/08/25 10:00 Cancel Clopidogrel Bisulfate (Plavix) 75 mg DAILY PO 03/08/25 10:00 03/08/25 10:58 Atorvastatin Calcium (Lipitor) 20 mg DAILY PO 03/08/25 10:00 03/08/25 10:58 Ceftriaxone Sodium 50 ml @ 100 mls/hr DAILY@09 IV 03/08/25 00:30 03/08/25 09:15 Levothyroxine Sodium (Synthroid Tablet) 100 mcg QAM@0600 PO 03/08/25 06:00 03/08/25 05:27 Dopamine HCl/ Dextrose 250 ml @ 5.108 mls/ hr Q24H IV 03/08/25 10:15 03/08/25 11:01 Sodium Bicarbonate 50 ml/ Sodium Chloride 1,050 ml @ 100 mls/hr [id number] IV 03/08/25 10:15 Potassium Chloride 100 ml @ 50 mls/hr Q2H IV 03/08/25 10:15 03/08/25 14:14 03/08/25 11:15 Review of Systems Constitutional: Generalized weakness Ears, Nose, & Throat: No symptom reported Eyes: No symptom reported Neurological: No symptoms reported Pulmonary/Respiratory: No symptoms reported Cardiovascular: No symptom reported Gastrointestinal: No symptom reported Genitourinary: No symptom reported Musculoskeletal: No symptom reported Skin: No symptom reported Psychiatric: No symptom reported Endocrine: No symptom reported Hematologic/Lymphatic: No symptom reported Vital Signs Vital Signs Date Time Temp Pulse Resp B/P (MAP) Pulse Ox O2 Delivery O2 Flow Rate FiO2 03/08/25 11:01 123/68 03/08/25 07:30 91 20 95 Room Air* 0 21 03/08/25 07:30 98.5 98.5 Physical Exam General Appearance: Cooperative. Well-developed. Well-nourished. No acute distress. Pulmonary/Respiratory: Clear, bilateral breaths sounds. Cardiovascular/Chest: Regular rate and rhythm. Peripheral Pulses: 2+ Radial (R). 2+ Radial (L). 2+ Pedal (R). 2+ Pedal (L) Abdominal Exam: Normal bowel sounds. Ankle Exam: Negative ankle edema Lower extremities: Negative lower extremity edema Neuro/Mental Status: A/OX4, coherent. Thoughts/Psych: Normal thought pattern. Appropriate mood and affect. Good judgment and insight. Appearance: No acute distress. Skin Exam: Normal inspection. Normal color. Warm and dry. Labs/Diagnostic Data Labs Test 03/08/25 11:17 03/08/25 05:55 03/08/25 02:15 03/07/25 23:40 Range/Units POC Glucose 92 70-106 mg/dl Troponin I High Sensitivity 222 *H </=54 ng/L Triglycerides Level 177 H < 150 mg/dL Cholesterol Level 158 < 200 mg/dL LDL Cholesterol 65 < 100 mg/dL HDL Cholesterol 63 H 40-59 mg/dL Thyroid Stimulating Hormone (TSH) 4.88 H 0.55-4.78 uIU/mL White Blood Count 7.7 # 4.4-10.8 10^3/uL Red Blood Count 4.64 4.5-5.90 10^6/uL Hemoglobin 14.6 13.5-17.5 g/dL Hematocrit 43.4 41.0-53.0 % Mean Corpuscular Volume 93.5 80.0-100.0 fL Mean Corpuscular Hemoglobin 31.4 28.0-32.0 pg Mean Corpuscular Hemoglobin Concent 33.6 32.0-36.0 g/dL Red Cell Distribution Width 15.4 H 11.8-14.3 % Platelet Count 142 140-450 10^3/uL Mean Platelet Volume 8.0 6.9-10.8 fL Neutrophils (%) (Auto) 80.5 H 37.0-80.0 % Lymphocytes (%) (Auto) 8.5 L 10.0-50.0 % Monocytes (%) (Auto) 10.8 0.0-12.0 % Eosinophils (%) (Auto) 0.1 0.0-7.0 % Basophils (%) (Auto) 0.1 0.0-2.0 % Neutrophils # (Auto) 6.2 1.6-8.6 10 ^3/uL Lymphocytes # (Auto) 0.7 0.4-5.4 10 ^3/uL Monocytes # (Auto) 0.8 0-1.3 10 ^3/uL Eosinophils # (Auto) 0 0-0.8 10 ^3/uL Basophils # (Auto) 0 0-0.2 10 ^3/uL Nucleated Red Blood Cells 0.0 % Sodium Level 137 136-145 mmol/L Potassium Level 3.2 L 3.5-5.1 mmol/L Chloride Level 105 98-107 mmol/L Carbon Dioxide Level 17 L 20-31 mmol/L Anion Gap 15 5-15 Blood Urea Nitrogen 90 *H 9-23 mg/dL Creatinine 2.93 H 0.700-1.30 mg/dL Glomerular Filtration Rate Calc 22 >90 mL/min BUN/Creatinine Ratio 30.7 H 10.0-20.0 Serum Glucose 294 H 74-106 mg/dL Hemoglobin A1c 8.7 H <5.7 % A1C Calcium Level 8.5 L 8.7-10.4 mg/dL Urine Color Colorless Yellow Urine Clarity Turbid H Clear Urine pH 5.5 5.0-9.0 Urine Specific [place] 1.014 1.001-1.035 Urine Protein 1+ H Negative Urine Ketones 1+ H Negative Urine Blood 2+ H Negative /uL Urine Nitrite Negative Negative Urine Bilirubin Negative Negative Urine Urobilinogen Normal Negative mg/dL Urine Leukocyte Esterase 3+ Negative /uL Urine RBC 6 0 - 3 /hpf Urine Microscopic WBC 135 H 0-3 /HPF Urine Squamous Epithelial Cells None seen <5 /hpf Urine Bacteria Many H None Seen /hpf Urine Hyaline Casts Few 0 - 2 /lpf Urine Mucus Few None Seen Urine Sperm Present None Seen /hpf Urine Creatinine 97.60 30.0-125.0 mg/dL Urine Protein/Creatinine Ratio 0.95 Urine Sodium 16 L 40-220 mmol/L Urine Glucose 4+ H Normal mg/dL Urine Total Protein 92.3 H 1-14 mg/dL Test 03/07/25 17:50 Range/Units Lactic Acid Level 1.5 0.4-2.0 mmol/L Uric Acid 10.3 H 3.7-9.2 mg/dL Phosphorus Level 3.3 2.4-5.1 mg/dL Magnesium Level 2.1 1.6-2.6 mg/dL B-Type Natriuretic Peptide 35.68 0-100 pg/mL Amylase Level 168 H 30-118 U/L Hepatitis B Surface Antigen Negative Negative Hepatitis C Antibody Negative Negative Assessment NSTEMI, rule out coronary ischemia Hypertension Dyslipidemia History of CVA NORA on CKD Insulin-dependent type 2 diabetes mellitus, uncontrolled (A1c 8.7%) ?Alcohol abuse Plan/Recommendation We will continue with the following plan/recommendations (Dr. Michael): Case reviewed and discussed with . We will proceed with obtaining a transthoracic echocardiogram to evaluate cardiac function. At the time of assessment, the patient denies any cardiac symptoms. Twelve lead electrocardiogram notable for nonspecific ST-depression to inferior leads. Patient also noted to have elevated troponin level. Given patient's comorbidities, elevated troponin level, and twelve lead electrocardiogram bridger nges, we will proceed with ischemic workup with an inpatient stress test. Patient noted to have elevated creatinine level, coronary angiogram we will be held at this time due to risk of further renal damage. We will plan for the patient to undergo a nuclear stress test on 03/09/2025. The meantime, continue with single antiplatelet therapy and lipid-lowering agent. Avoid nephrotoxic agents. We will close cardiac surveillance and notify cardiology team immediately for any ECG changes. Thank you for allowing us to care for this patient. Please call with any questions or concerns. Critical care time spent: 44 minutes This medical document was created using an electronic medical record system with voice recognition software and computerized dictation system. Although this document has been carefully reviewed, there might still be some phonetic and typographical errors. Occasional wrong-word or ``sound-alike substitutions may have occurred due to the inherent limitations of voice recognition software. These areas are purely typographical due to imperfections of the software programs and do not reflect any compromise in the patient's medical care. Please read the chart carefully and recognize, using context, where these substitutions have occurred. Plan discussed with: Patient NYHA Physical activity limitations: NA Date of Service: Mar 08, 2025 Billing Provider: NOE CANAS Cardiology Common Codes: 44748-[id number] INP/OBS CARE (High) Cardiology Consultation Codes: [id number] CONSULT <45MIN NOE CANAS Mar 08, 2025 12:21
[2025-03-08] MEDS: SODIUM BICARB 50mEq/50ml Vial 50 ML in SOD CHL 0.45% 1,000 ML IV SCH (12:23)
[2025-03-08 19:25] VITALS: PULSE 85; RESP 15; O2SAT 94
--- NOTE | 2025-03-08 19:32 | DVHSR ---
APPROVED REPORT EXAM: LIMITED Two-dimensional and M-mode echocardiogram with Doppler and color Doppler. Blood Pressure: 121/71 mmHg INDICATION Elevated Troponin RISK FACTORS Height: 6', Weight: 150 DIMENSIONS LVDd 4.7 (3.8-5.7cm) LA (2D) 4.5 (1.9-4.0cm) Aortic Root 3.6 (2.0-3.7cm) LVDs 3.3 (2.5-4.0cm) LA (MM) (1.9-4.0cm) Aortic Cusp Exc 2.0 (1.5-2.0cm) EF (%) 55.0 (55-70%) Rt. Atrium 4.6 (1.9-4.0cm) Asc. Aorta cm IVSd 1.0 (0.7-1.1cm) RV (D) (1.8-2.4cm) PWd 0.8 (0.7-1.1cm) Mitral Valve Mitral Mitral Stenosis E wave 0.60m/s MV Mean GR. mmHg A wave 0.70m/s MV Peak GR. mmHg E/A ratio 0.9 2D MVA cm2 Aortic Valve Aortic Valve Aortic Stenosis V1 0.90m/s AO Mean GR. 4mmHg V2 1.30m/s AO Peak GR. 7mmHg LVOT Diameter 2.5 (1.8-2.4cm) Doppler GABRIELLE 3.40cm2 Other Information Quality : Technically Limited Rhythm : Technically limited study due to body habitus. Conclusion Sinus rhythm. Difficult acoustic windows. Biatrial enlargement. Mild aortic root enlargement. Valves appear to be structurally normal. Left ventricular function is preserved at 60% with normal RV function. No significant valvular insufficiency. No pericardial effusion masses or vegetations.
[2025-03-08 21:30] VITALS: BP 136/81; PULSE 71; RESP 18; TEMP 98.3; O2SAT 95
[2025-03-08 22:26] VITALS: BP 132/71; PULSE 76; RESP 18; TEMP 98.4; O2SAT 96
[2025-03-09] VITALS (8 sets, daily range): BP systolic 118–145; BP diastolic 70–85; PULSE 70–83; RESP 16–19; TEMP 98.1–99.9; O2SAT 94–96
[2025-03-09 06:55] LABS: Hematocrit 38.9 % (41.0-53.0); Hemoglobin 13.0 g/dL (13.5-17.5); Mean Corpuscular Hemoglobin 31.4 pg (28.0-32.0); Mean Corpuscular Volume 93.8 fL (80.0-100.0); Nucleated Red Blood Cells % 0.0 %
[2025-03-09 07:08] LABS: Anion Gap 15 (5-15); Sodium 143 mmol/L (136-145)
[2025-03-09 07:11] LABS: Carbon Dioxide 17 mmol/L (20-31); Chloride 111 mmol/L (98-107); Potassium 3.3 mmol/L (3.5-5.1)
[2025-03-09 07:14] LABS: BUN/Creatinine Ratio 25.0 (10.0-20.0)
[2025-03-09 07:16] LABS: Blood Urea Nitrogen 40 mg/dL (9-23); Glucose 123 mg/dL (74-106)
[2025-03-09 07:17] LABS: Calcium 8.5 mg/dL (8.7-10.4)
--- NOTE | 2025-03-09 13:00 | DVHPN2 ---
Consult Progress Note Subjective Other Systems: Patient is in normal sinus rhythm on client analyst at time of assessment. He denies any cardiac symptoms such as chest pain, shortness of breath, palpitations, or dizziness. Patient refused stress test today. Objective vital signs Vital Sign Date Time Temp Pulse Resp B/P (MAP) Pulse Ox O2 Delivery O2 Flow Rate FiO2 03/09/25 11:10 135/74 03/09/25 08:46 98.7 83 18 96 98.7 03/08/25 22:26 Room Air* 0 21 Total Intake and Output 03/08/25 03/08/25 03/09/25 15:00 23:00 07:00 Intake Total 765.324 ml 730.648 ml 800 ml Output Total 2000 ml 1250 ml Balance 765.324 ml -1269.352 ml -450 ml medications Current Medications Medications Dose Ordered Sig/Sukhdev Route Start Time Stop Time Status Last Admin Dose Admin Docusate Sodium 100 mg BIDPRN PRN PO 03/07/25 23:30 Acetaminophen 650 mg Q6HP PRN PO 03/07/25 23:30 Acetaminophen/ Hydrocodone Bitart 1 tab Q6HP PRN PO 03/07/25 23:30 Ondansetron HCl 4 mg Q4HP PRN IV 03/07/25 23:30 Nitroglycerin 0.4 mg Q5MINP PRN SL 03/07/25 23:30 Morphine Sulfate 2 mg Q30M PRN IV 03/07/25 23:30 Diagnostic Test (Pha) 1 strip Q6HR 03/08/25 00:00 03/09/25 12:08 1 STRIP Insulin Human Regular Q6HR SC 03/08/25 00:00 03/09/25 12:09 9 UNITS Dextrose 50 ml UD PRN IV 03/07/25 23:30 Heparin Sodium (Porcine) 5,000 units Q12HR SC 03/08/25 10:00 Cancel Clopidogrel Bisulfate 75 mg DAILY PO 03/08/25 10:00 03/09/25 10:06 75 MG Atorvastatin Calcium 20 mg DAILY PO 03/08/25 10:00 03/09/25 10:06 20 MG Ceftriaxone Sodium 50 ml @ 100 mls/hr DAILY@09 IV 03/08/25 00:30 03/09/25 10:07 100 MLS/HR Levothyroxine Sodium 100 mcg QAM@0600 PO 03/08/25 06:00 03/09/25 05:36 100 MCG Dopamine HCl/ Dextrose 250 ml @ 5.108 mls/ hr Q24H IV 03/08/25 10:15 03/09/25 11:10 5.108 MLS/HR Sodium Bicarbonate 50 ml/ Sodium Chloride 1,050 ml @ 100 mls/hr [id number] IV 03/08/25 10:15 03/09/25 10:57 100 MLS/HR Examination: GENERAL:Normal, LUNGS:Normal, CVS:Normal, NEURO:Normal laboratory and microbiology Laboratory Tests 03/09/25 06:13 Test 03/09/25 06:13 Range/Units Serum Glucose 123 #H 74-106 mg/dL Problem List/Assessment/Plan Problem List/Assessment/Plan NSTEMI, rule out coronary ischemia Hypertension Dyslipidemia History of CVA NORA on CKD Insulin-dependent type 2 diabetes mellitus, uncontrolled (A1c 8.7%) ?Alcohol abuse Noncompliance Plan/Recommendations (Dr. Michael): Case reviewed and discussed with . A transthoracic echocardiogram reveals an EF of 60%. At the time of assessment, the patient denies any cardiac symptoms. The patient was scheduled to undergo a nuclear stress test given elevated troponin level, comorbidities, and 12 lead electrocardiogram with nonspecific ST depression to inferior leads. Today, the patient is refusing to undergo nuclear stress test. The patient has expressed refusal with nuclear med tech, bedside RN, and cardiology team. Extensive education was provided to the patient regarding the reasoning for which stress test was ordered. Patient is adamantly refusing any cardiac workup at this time. Given patient refusal, there is no further inpatient cardiac workup indicated at this time. Please feel free to reconsult if patient would like to undergo inpatient cardiac workup. Thank you for allowing us to care for this patient. Please call with any questions or concerns. This medical document was created using an electronic medical record system with voice recognition software and computerized dictation system. Although this document has been carefully reviewed, there might still be some phonetic and typographical errors. Occasional wrong-word or ``sound-alike substitutions may have occurred due to the inherent limitations of voice recognition software. These areas are purely typographical due to imperfections of the software programs and do not reflect any compromise in the patient's medical care. Please read the chart carefully and recognize, using context, where these substitutions have occurred. Plan discussed with: Patient, Other (Bedside RN Star) Date of Service: Mar 09, 2025 Billing Provider: NOE CANAS Common Visit Codes: [id number] INP/OBS CARE(HIGH) NOE CANAS Mar 09, 2025 13:00
--- NOTE | 2025-03-09 14:04 | ECG ---
[facility] Test Date: 2025-03-07 Test Time: 13:57:59 Pat Name: SANA CARRILLO Department: ED Room: [facility] Gender: M Interactive Media Specialist: gp : 1955 Requested By: IESHA WILKERSON Order Number: [id number] Reading MD: Jimmie Michael Measurements Intervals [place] Rate: 95 P: 82 OK: 171 QRS: 86 QRSD: 82 T: -22 QT: 344 QTc: 433 Interpretive Statements Sinus rhythm Borderline right axis deviation Probable anteroseptal infarct, old Nonspecific T abnormalities, inferior leads Electronically Signed On 03-09-2025 17:02:49 PST by Jimmie Michael Please click the below link to view image of tracing.
--- NOTE | 2025-03-09 14:29 | DVHPN2 ---
Progress Note Date Seen: Mar 09, 2025 Medical Necessity Reason Pt with a Central, PICC or Fol: No Subjective Patient reports: No new complaints Other Systems: Patient seen and examined by myself today in follow-up Objective vital signs Vital Sign Date Time Temp Pulse Resp B/P (MAP) Pulse Ox O2 Delivery O2 Flow Rate FiO2 03/09/25 13:00 98.3 70 16 145/80 (101) 94 98.3 03/09/25 07:30 Room Air* 0 21 Total Intake and Output 03/08/25 03/08/25 03/09/25 15:00 23:00 07:00 Intake Total 765.324 ml 730.648 ml 800 ml Output Total 2000 ml 1250 ml Balance 765.324 ml -1269.352 ml -450 ml medications Current Medications Medications Dose Ordered Sig/Sukhdev Route Start Time Stop Time Status Last Admin Dose Admin Docusate Sodium 100 mg BIDPRN PRN PO 03/07/25 23:30 Acetaminophen 650 mg Q6HP PRN PO 03/07/25 23:30 Acetaminophen/ Hydrocodone Bitart 1 tab Q6HP PRN PO 03/07/25 23:30 Ondansetron HCl 4 mg Q4HP PRN IV 03/07/25 23:30 Nitroglycerin 0.4 mg Q5MINP PRN SL 03/07/25 23:30 Morphine Sulfate 2 mg Q30M PRN IV 03/07/25 23:30 Diagnostic Test (Pha) 1 strip Q6HR 03/08/25 00:00 03/09/25 12:08 1 STRIP Insulin Human Regular Q6HR SC 03/08/25 00:00 03/09/25 12:09 9 UNITS Dextrose 50 ml UD PRN IV 03/07/25 23:30 Heparin Sodium (Porcine) 5,000 units Q12HR SC 03/08/25 10:00 Cancel Clopidogrel Bisulfate 75 mg DAILY PO 03/08/25 10:00 03/09/25 10:06 75 MG Atorvastatin Calcium 20 mg DAILY PO 03/08/25 10:00 03/09/25 10:06 20 MG Ceftriaxone Sodium 50 ml @ 100 mls/hr DAILY@09 IV 03/08/25 00:30 03/09/25 10:07 100 MLS/HR Levothyroxine Sodium 100 mcg QAM@0600 PO 03/08/25 06:00 03/09/25 05:36 100 MCG Dopamine HCl/ Dextrose 250 ml @ 5.108 mls/ hr Q24H IV 03/08/25 10:15 03/09/25 11:10 5.108 MLS/HR Sodium Bicarbonate 50 ml/ Sodium Chloride 1,050 ml @ 100 mls/hr [id number] IV 03/08/25 10:15 03/09/25 10:57 100 MLS/HR Examination: LUNGS:Normal, CVS:Normal, MSK:Normal laboratory and microbiology Laboratory Tests 03/09/25 06:13 Test 03/09/25 06:13 Range/Units Serum Glucose 123 #H 74-106 mg/dL Microbiology Date/Time Source Procedure Growth Status 03/07/25 23:40 Voided Urine Urine Culture - Preliminary Resulted Problem List/Assessment/Plan Problem List/Assessment/Plan NORA superimposed on CKd secondary to hemodynamic mediated, FeNa < 1% DM type II, uncontrolled Urinary tract infection DKA Dehydration NSTEMI Acute pancreatitis Metabolic acidosis Hypokalemia REC: Kidney function continues to improve Increased urine output Tejada's catheter Strict I&O's kidney US reported bilateral echogenic kidney IVF 1/2 NS with 50 mEq sodium bicarb at 100 cc/hour KCl replacement IV antibiotics Insulin SS Cardiology consult Will continue to follow Plan discussed with: Patient LONNIE PARKS MD Mar 09, 2025 14:29
--- NOTE | 2025-03-09 14:31 | DVHPN2 ---
Subjective Patient's at bedside who is feeding him with a lunch. Earlier I was told patient's has a refused Cardiolite stress test. requested if they can come back again and then she can give the consent on her 's be half. Patient is currently denies any chest pain. Changes from previous H/P or p: No Changes Eyes: No Pain, No Vision change, No Conjunctivae inflammation, No Eyelid inflammation, No Other, No Redness ENT: No Ear pain, No Ear discharge, No Nose pain, No Nose discharge, No Nose congestion, No Mouth pain, No Mouth swelling, No Throat pain, No Throat swelling, No Other Cardiovascular: No Chest Pain, No Palpitations, No Orthopnea, No Paroxysmal Noc. Dyspnea, No Edema, No Lt Headedness, No Other Respiratory: No Cough, No Dry, No Shortness of breath, No SOB with excertion, No Wheezing, No Hemoptysis, No Pleuritic Pain, No Sputum, No Other Gastrointestinal: No Nausea, No Vomiting, No Abdominal Pain, No Diarrhea, No Constipation, No Melena, No Hematochezia, No Other Genitourinary: No Dysuria, No Frequency, No Incontinence, No Hematuria, No Retention, No Other Musculoskeletal: No other, No neck pain, No shoulder pain, No arm pain; back pain; No hand pain, No leg pain, No foot pain Skin: No Rash, No Lesions, No Jaundice, No Bruising, No Other Objective Vitals Vital Signs Date Time Temp Pulse Resp B/P (MAP) Pulse Ox O2 Delivery O2 Flow Rate FiO2 03/09/25 13:00 98.3 70 16 145/80 (101) 94 98.3 03/09/25 07:30 Room Air* 0 21 Intake/Output Intake and Output 03/09/25 07:00 Intake Total 2295.972 ml Output Total 3250 ml Balance -954.028 ml Intake Oral 0 ml IV Total 1495.972 ml Other 800 ml Output Urine Total 3250 ml # Bowel Movements 1 Exam HEENT pupils are reactive Neck is supple CV is S1-S2 regular rate and rhythm Respiratory diminished breath sounds bases GI positive bowel sound Extremity no edema 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 Medications Current Medications Medications Dose Ordered Sig/Sukhdev Route Start Time Stop Time Status Last Admin Dose Admin Docusate Sodium 100 mg BIDPRN PRN PO 03/07/25 23:30 Acetaminophen 650 mg Q6HP PRN PO 03/07/25 23:30 Acetaminophen/ Hydrocodone Bitart 1 tab Q6HP PRN PO 03/07/25 23:30 Ondansetron HCl 4 mg Q4HP PRN IV 03/07/25 23:30 Nitroglycerin 0.4 mg Q5MINP PRN SL 03/07/25 23:30 Morphine Sulfate 2 mg Q30M PRN IV 03/07/25 23:30 Diagnostic Test (Pha) 1 strip Q6HR 03/08/25 00:00 03/09/25 12:08 1 STRIP Insulin Human Regular Q6HR SC 03/08/25 00:00 03/09/25 12:09 9 UNITS Dextrose 50 ml UD PRN IV 03/07/25 23:30 Heparin Sodium (Porcine) 5,000 units Q12HR SC 03/08/25 10:00 Cancel Clopidogrel Bisulfate 75 mg DAILY PO 03/08/25 10:00 03/09/25 10:06 75 MG Atorvastatin Calcium 20 mg DAILY PO 03/08/25 10:00 03/09/25 10:06 20 MG Ceftriaxone Sodium 50 ml @ 100 mls/hr DAILY@09 IV 03/08/25 00:30 03/09/25 10:07 100 MLS/HR Levothyroxine Sodium 100 mcg QAM@0600 PO 03/08/25 06:00 03/09/25 05:36 100 MCG Dopamine HCl/ Dextrose 250 ml @ 5.108 mls/ hr Q24H IV 03/08/25 10:15 03/09/25 11:10 5.108 MLS/HR Sodium Bicarbonate 50 ml/ Sodium Chloride 1,050 ml @ 100 mls/hr [id number] IV 03/08/25 10:15 03/09/25 10:57 100 MLS/HR Laboratory Results Laboratory Tests 03/09/25 06:13 Chemistry Test 03/09/25 06:13 Calcium Level 8.5 mg/dL (8.7-10.4) L Urinalysis Test 03/07/25 23:40 Urine Color Colorless (Yellow) Urine Clarity Turbid (Clear) H Urine pH 5.5 (5.0-9.0) Urine Specific [place] 1.014 (1.001-1.035) Urine Protein 1+ (Negative) H Urine Ketones 1+ (Negative) H Urine Blood 2+ /uL (Negative) H Urine Nitrite Negative (Negative) Urine Bilirubin Negative (Negative) Urine Urobilinogen Normal mg/dL (Negative) Urine Leukocyte Esterase 3+ /uL (Negative) Urine RBC 6 /hpf (0 - 3) Urine Microscopic WBC 135 /HPF (0-3) H Urine Squamous Epithelial Cells None seen /hpf (<5) Urine Bacteria Many /hpf (None Seen) H Urine Hyaline Casts Few /lpf (0 - 2) Urine Mucus Few (None Seen) Urine Sperm Present /hpf (None Seen) Urine Creatinine 97.60 mg/dL (30.0-125.0) Urine Protein/Creatinine Ratio 0.95 Urine Sodium 16 mmol/L (40-220) L Urine Glucose 4+ mg/dL (Normal) H Urine Total Protein 92.3 mg/dL (1-14) H Microbiology Microbiology Date/Time Source Procedure Growth Status 03/07/25 23:40 Voided Urine Urine Culture - Preliminary Resulted Assessment/Plan Assessment/Plan 69-year-old male with a known history of CVA, diabetes mellitus type 2 insulin dependent, hypertension, dyslipidemia initially presented to the hospital with a generalized weakness dizziness found to have 1. Acute kidney injury suspected secondary to vasomotor nephropathy hemodynamically mediated 2. Metabolic acidosis secondary to acute kidney injury 3. Hyperglycemia in the setting of diabetes mellitus type 2 4. Elevated troponin suspect NSTEMI type 2 secondary to decreased renal clearance 5. Urinary tract infection with a hematuria 6. BPH 7. History of CVA 8. Noncompliance, patient has a refused Cardiolite stress test -IV bicarb drip, monitoring renal functioning, regular insulin sliding scale -Cardiolite stress test -patient's says if respite care provider can come back then she can give the consent for any Cardiolite stress test. Plan discussed with: Patient Date of Service: Mar 09, 2025 Billing Provider: SHUKRI MENDSE MD Common Visit Codes: NOT BILLABLE SHUKRI MENDES MD Mar 09, 2025 14:31
[2025-03-09] MEDS: ONDANSETRON HCL 4 MG/2 ML VIAL IV PRN (18:35)
[2025-03-10] VITALS (8 sets, daily range): BP systolic 113–146; BP diastolic 65–91; PULSE 57–80; RESP 18–20; TEMP 97.4–98.7; O2SAT 92–95
[2025-03-10 05:23] LABS: Hematocrit 36.3 % (41.0-53.0); Hemoglobin 12.0 g/dL (13.5-17.5); Mean Corpuscular Hemoglobin 30.9 pg (28.0-32.0); Mean Corpuscular Volume 93.3 fL (80.0-100.0); Nucleated Red Blood Cells % 0.1 %
[2025-03-10 05:37] LABS: Anion Gap 11 (5-15); Carbon Dioxide 22 mmol/L (20-31); Chloride 107 mmol/L (98-107); Sodium 140 mmol/L (136-145)
[2025-03-10 05:43] LABS: BUN/Creatinine Ratio 20.3 (10.0-20.0)
[2025-03-10 05:52] LABS: Blood Urea Nitrogen 26 mg/dL (9-23); Calcium 8.1 mg/dL (8.7-10.4); Glucose 138 mg/dL (74-106); Potassium 3.0 mmol/L (3.5-5.1)
--- NOTE | 2025-03-10 11:53 | DVHPN2 ---
Progress Note Date Seen: Mar 10, 2025 Medical Necessity Reason Pt with a Central, PICC or Fol: No Subjective Patient reports: No new complaints Other Systems: Patient seen and examined by myself today in follow-up Objective vital signs Vital Sign Date Time Temp Pulse Resp B/P (MAP) Pulse Ox O2 Delivery O2 Flow Rate FiO2 03/10/25 10:11 135/74 03/10/25 08:48 98.4 67 20 94 98.4 03/09/25 20:00 Room Air* 0 21 Total Intake and Output 03/09/25 03/09/25 03/10/25 15:00 23:00 07:00 Intake Total 1176.5 ml 1410 ml 200 ml Output Total 1350 ml 1150 ml Balance 1176.5 ml 60 ml -950 ml medications Current Medications Medications Dose Ordered Sig/Sukhdev Route Start Time Stop Time Status Last Admin Dose Admin Docusate Sodium 100 mg BIDPRN PRN PO 03/07/25 23:30 Acetaminophen 650 mg Q6HP PRN PO 03/07/25 23:30 Acetaminophen/ Hydrocodone Bitart 1 tab Q6HP PRN PO 03/07/25 23:30 Ondansetron HCl 4 mg Q4HP PRN IV 03/07/25 23:30 03/09/25 18:35 4 MG Nitroglycerin 0.4 mg Q5MINP PRN SL 03/07/25 23:30 Morphine Sulfate 2 mg Q30M PRN IV 03/07/25 23:30 Diagnostic Test (Pha) 1 strip Q6HR 03/08/25 00:00 03/10/25 05:58 1 STRIP Insulin Human Regular Q6HR SC 03/08/25 00:00 03/10/25 06:04 2 UNITS Dextrose 50 ml UD PRN IV 03/07/25 23:30 Heparin Sodium (Porcine) 5,000 units Q12HR SC 03/08/25 10:00 Cancel Clopidogrel Bisulfate 75 mg DAILY PO 03/08/25 10:00 03/10/25 10:06 75 MG Atorvastatin Calcium 20 mg DAILY PO 03/08/25 10:00 03/10/25 10:06 20 MG Ceftriaxone Sodium 50 ml @ 100 mls/hr DAILY@09 IV 03/08/25 00:30 03/10/25 10:00 100 MLS/HR Levothyroxine Sodium 100 mcg QAM@0600 PO 03/08/25 06:00 03/10/25 05:26 100 MCG Dopamine HCl/ Dextrose 250 ml @ 5.108 mls/ hr Q24H IV 03/08/25 10:15 03/09/25 11:10 5.108 MLS/HR Sodium Bicarbonate 50 ml/ Sodium Chloride 1,050 ml @ 100 mls/hr [id number] IV 03/08/25 10:15 03/10/25 03:55 100 MLS/HR Examination: LUNGS:Normal, CVS:Normal, MSK:Normal laboratory and microbiology Laboratory Tests 03/10/25 04:48 Test 03/10/25 04:48 Range/Units Serum Glucose 138 H 74-106 mg/dL Microbiology Date/Time Source Procedure Growth Status 03/07/25 23:40 Voided Urine Urine Culture - Preliminary Resulted Problem List/Assessment/Plan Problem List/Assessment/Plan NORA superimposed on CKd stage II secondary to hemodynamic mediated, FeNa < 1% DM type II, uncontrolled Urinary tract infection DKA Dehydration NSTEMI Acute pancreatitis Metabolic acidosis Hypokalemia REC: Kidney function continues to improve Increased urine output Tejada's catheter Strict I&O's kidney US reported bilateral echogenic kidney KCl replacement IV antibiotics Insulin SS Cardiology consult Will continue to follow I will sign off this case, please refer to my office two weeks after discharge for Chronic Kidney Disease follow-up Thank you for the consult Plan discussed with: Patient LONNIE PARKS MD Mar 10, 2025 11:52
[2025-03-10] MEDS: POTASSIUM EFFERVESENT TAB 25 MEQ PO ONE (12:38)
--- NOTE | 2025-03-10 14:23 | DVHPN2 ---
Subjective Patient's denies any chest pain. Changes from previous H/P or p: No Changes Eyes: No Pain, No Vision change, No Conjunctivae inflammation, No Eyelid inflammation, No Other, No Redness ENT: No Ear pain, No Ear discharge, No Nose pain, No Nose discharge, No Nose congestion, No Mouth pain, No Mouth swelling, No Throat pain, No Throat swelling, No Other Cardiovascular: No Chest Pain, No Palpitations, No Orthopnea, No Paroxysmal Noc. Dyspnea, No Edema, No Lt Headedness, No Other Respiratory: No Cough, No Dry, No Shortness of breath, No SOB with excertion, No Wheezing, No Hemoptysis, No Pleuritic Pain, No Sputum, No Other Gastrointestinal: No Nausea, No Vomiting, No Abdominal Pain, No Diarrhea, No Constipation, No Melena, No Hematochezia, No Other Genitourinary: No Dysuria, No Frequency, No Incontinence, No Hematuria, No Retention, No Other Musculoskeletal: No other, No neck pain, No shoulder pain, No arm pain; back pain; No hand pain, No leg pain, No foot pain Skin: No Rash, No Lesions, No Jaundice, No Bruising, No Other Objective Vitals Vital Signs Date Time Temp Pulse Resp B/P (MAP) Pulse Ox O2 Delivery O2 Flow Rate FiO2 03/10/25 13:18 98.6 67 20 143/65 (91) 93 98.6 03/09/25 20:00 Room Air* 0 21 Intake/Output Intake and Output 03/10/25 07:00 Intake Total 2786.5 ml Output Total 2500 ml Balance 286.5 ml Intake Oral 910 ml IV Total 1876.5 ml Output Urine Total 2500 ml # Bowel Movements 2 Exam HEENT pupils are reactive Neck is supple CV is S1-S2 regular rate and rhythm Respiratory diminished breath sounds bases GI positive bowel sound Extremity no edema 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 [employer] no motor deficit Medications Current Medications Medications Dose Ordered Sig/Sukhdev Route Start Time Stop Time Status Last Admin Dose Admin Docusate Sodium 100 mg BIDPRN PRN PO 03/07/25 23:30 Acetaminophen 650 mg Q6HP PRN PO 03/07/25 23:30 Acetaminophen/ Hydrocodone Bitart 1 tab Q6HP PRN PO 03/07/25 23:30 Ondansetron HCl 4 mg Q4HP PRN IV 03/07/25 23:30 03/09/25 18:35 4 MG Nitroglycerin 0.4 mg Q5MINP PRN SL 03/07/25 23:30 Morphine Sulfate 2 mg Q30M PRN IV 03/07/25 23:30 Diagnostic Test (Pha) 1 strip Q6HR 03/08/25 00:00 03/10/25 12:18 1 STRIP Insulin Human Regular Q6HR SC 03/08/25 00:00 03/10/25 12:00 9 UNITS Dextrose 50 ml UD PRN IV 03/07/25 23:30 Heparin Sodium (Porcine) 5,000 units Q12HR SC 03/08/25 10:00 Cancel Clopidogrel Bisulfate 75 mg DAILY PO 03/08/25 10:00 03/10/25 10:06 75 MG Atorvastatin Calcium 20 mg DAILY PO 03/08/25 10:00 03/10/25 10:06 20 MG Ceftriaxone Sodium 50 ml @ 100 mls/hr DAILY@09 IV 03/08/25 00:30 03/10/25 10:00 100 MLS/HR Levothyroxine Sodium 100 mcg QAM@0600 PO 03/08/25 06:00 03/10/25 05:26 100 MCG Laboratory Results Laboratory Tests 03/10/25 04:48 Chemistry Test 03/10/25 04:48 Calcium Level 8.1 mg/dL (8.7-10.4) L Urinalysis Test 03/07/25 23:40 Urine Color Colorless (Yellow) Urine Clarity Turbid (Clear) H Urine pH 5.5 (5.0-9.0) Urine Specific [place] 1.014 (1.001-1.035) Urine Protein 1+ (Negative) H Urine Ketones 1+ (Negative) H Urine Blood 2+ /uL (Negative) H Urine Nitrite Negative (Negative) Urine Bilirubin Negative (Negative) Urine Urobilinogen Normal mg/dL (Negative) Urine Leukocyte Esterase 3+ /uL (Negative) Urine RBC 6 /hpf (0 - 3) Urine Microscopic WBC 135 /HPF (0-3) H Urine Squamous Epithelial Cells None seen /hpf (<5) Urine Bacteria Many /hpf (None Seen) H Urine Hyaline Casts Few /lpf (0 - 2) Urine Mucus Few (None Seen) Urine Sperm Present /hpf (None Seen) Urine Creatinine 97.60 mg/dL (30.0-125.0) Urine Protein/Creatinine Ratio 0.95 Urine Sodium 16 mmol/L (40-220) L Urine Glucose 4+ mg/dL (Normal) H Urine Total Protein 92.3 mg/dL (1-14) H Microbiology Microbiology Date/Time Source Procedure Growth Status 03/07/25 23:40 Voided Urine Urine Culture - Final Complete Assessment/Plan Assessment/Plan 69-year-old male with a known history of CVA, diabetes mellitus type 2 insulin dependent, hypertension, dyslipidemia initially presented to the hospital with a generalized weakness dizziness found to have 1. Acute kidney injury suspected secondary to vasomotor nephropathy hemodynamically mediated 2. Metabolic acidosis secondary to acute kidney injury 3. Hyperglycemia in the setting of diabetes mellitus type 2 4. Elevated troponin suspect NSTEMI type 2 secondary to decreased renal clearance 5. Urinary tract infection with a hematuria 6. BPH 7. History of CVA 8. Noncompliance, patient has a refused Cardiolite stress test -IV bicarb drip, monitoring renal functioning, regular insulin sliding scale -Cardiolite stress test -patient's says if official court interpreter can come back then she can give the consent for any Cardiolite stress test. Plan discussed with: Patient Date of Service: Mar 10, 2025 Billing Provider: SHUKRI MENDES MD Common Visit Codes: NOT BILLABLE SHUKRI MENDSE MD Mar 10, 2025 14:23
[2025-03-10] MEDS: HYDROcodone-ACET 5/325MG TAB PO PRN (14:50)
[2025-03-11] VITALS (8 sets, daily range): BP systolic 119–165; BP diastolic 65–85; PULSE 62–87; RESP 17–20; TEMP 97.5–99.3; O2SAT 91–95
[2025-03-11 07:21] LABS: Chloride 105 mmol/L (98-107); Potassium 3.7 mmol/L (3.5-5.1); Sodium 137 mmol/L (136-145)
[2025-03-11 07:22] LABS: Anion Gap 14 (5-15)
[2025-03-11 07:24] LABS: Hematocrit 36.0 % (41.0-53.0); Hemoglobin 12.1 g/dL (13.5-17.5); Mean Corpuscular Hemoglobin 32.1 pg (28.0-32.0); Mean Corpuscular Volume 95.2 fL (80.0-100.0); Nucleated Red Blood Cells % 0.1 %
[2025-03-11 07:27] LABS: BUN/Creatinine Ratio 11.8 (10.0-20.0); Blood Urea Nitrogen 14 mg/dL (9-23); Calcium 8.3 mg/dL (8.7-10.4); Carbon Dioxide 18 mmol/L (20-31)
[2025-03-11 07:30] LABS: Glucose 207 mg/dL (74-106)
--- NOTE | 2025-03-11 17:47 | DVHPN2 ---
Subjective Patient's denies any chest pain. Changes from previous H/P or p: No Changes Eyes: No Pain, No Vision change, No Conjunctivae inflammation, No Eyelid inflammation, No Other, No Redness ENT: No Ear pain, No Ear discharge, No Nose pain, No Nose discharge, No Nose congestion, No Mouth pain, No Mouth swelling, No Throat pain, No Throat swelling, No Other Cardiovascular: No Chest Pain, No Palpitations, No Orthopnea, No Paroxysmal Noc. Dyspnea, No Edema, No Lt Headedness, No Other Respiratory: No Cough, No Dry, No Shortness of breath, No SOB with excertion, No Wheezing, No Hemoptysis, No Pleuritic Pain, No Sputum, No Other Gastrointestinal: No Nausea, No Vomiting, No Abdominal Pain, No Diarrhea, No Constipation, No Melena, No Hematochezia, No Other Genitourinary: No Dysuria, No Frequency, No Incontinence, No Hematuria, No Retention, No Other Musculoskeletal: No other, No neck pain, No shoulder pain, No arm pain; back pain; No hand pain, No leg pain, No foot pain Skin: No Rash, No Lesions, No Jaundice, No Bruising, No Other Objective Vitals Vital Signs Date Time Temp Pulse Resp B/P (MAP) Pulse Ox O2 Delivery O2 Flow Rate FiO2 03/11/25 16:41 99.3 78 20 136/71 (92) 95 99.3 03/11/25 08:00 Room Air* 0 21 Intake/Output Intake and Output 03/11/25 07:00 Intake Total 850 ml Output Total 1650 ml Balance -800 ml Intake Oral 800 ml IV Total 50 ml Output Urine Total 1650 ml Exam HEENT pupils are reactive Neck is supple CV is S1-S2 regular rate and rhythm Respiratory diminished breath sounds bases GI positive bowel sound Extremity no edema FULL TIME no motor deficit Medications Current Medications Medications Dose Ordered Sig/Sukhdev Route Start Time Stop Time Status Last Admin Dose Admin Docusate Sodium 100 mg BIDPRN PRN PO 03/07/25 23:30 Acetaminophen 650 mg Q6HP PRN PO 03/07/25 23:30 Acetaminophen/ Hydrocodone Bitart 1 tab Q6HP PRN PO 03/07/25 23:30 03/10/25 14:50 1 TAB Ondansetron HCl 4 mg Q4HP PRN IV 03/07/25 23:30 03/09/25 18:35 4 MG Nitroglycerin 0.4 mg Q5MINP PRN SL 03/07/25 23:30 Morphine Sulfate 2 mg Q30M PRN IV 03/07/25 23:30 Diagnostic Test (Pha) 1 strip Q6HR 03/08/25 00:00 03/11/25 12:00 1 STRIP Insulin Human Regular Q6HR SC 03/08/25 00:00 03/11/25 12:00 6 UNITS Dextrose 50 ml UD PRN IV 03/07/25 23:30 Heparin Sodium (Porcine) 5,000 units Q12HR SC 03/08/25 10:00 Cancel Clopidogrel Bisulfate 75 mg DAILY PO 03/08/25 10:00 03/11/25 09:11 75 MG Atorvastatin Calcium 20 mg DAILY PO 03/08/25 10:00 03/11/25 09:12 20 MG Ceftriaxone Sodium 50 ml @ 100 mls/hr DAILY@09 IV 03/08/25 00:30 03/11/25 09:12 100 MLS/HR Levothyroxine Sodium 100 mcg QAM@0600 PO 03/08/25 06:00 03/11/25 05:35 100 MCG Laboratory Results Laboratory Tests 03/11/25 06:03 Chemistry Test 03/11/25 06:03 Calcium Level 8.3 mg/dL (8.7-10.4) L Urinalysis Test 03/07/25 23:40 Urine Color Colorless (Yellow) Urine Clarity Turbid (Clear) H Urine pH 5.5 (5.0-9.0) Urine Specific [place] 1.014 (1.001-1.035) Urine Protein 1+ (Negative) H Urine Ketones 1+ (Negative) H Urine Blood 2+ /uL (Negative) H Urine Nitrite Negative (Negative) Urine Bilirubin Negative (Negative) Urine Urobilinogen Normal mg/dL (Negative) Urine Leukocyte Esterase 3+ /uL (Negative) Urine RBC 6 /hpf (0 - 3) Urine Microscopic WBC 135 /HPF (0-3) H Urine Squamous Epithelial Cells None seen /hpf (<5) Urine Bacteria Many /hpf (None Seen) H Urine Hyaline Casts Few /lpf (0 - 2) Urine Mucus Few (None Seen) Urine Sperm Present /hpf (None Seen) Urine Creatinine 97.60 mg/dL (30.0-125.0) Urine Protein/Creatinine Ratio 0.95 Urine Sodium 16 mmol/L (40-220) L Urine Glucose 4+ mg/dL (Normal) H Urine Total Protein 92.3 mg/dL (1-14) H Microbiology Microbiology Date/Time Source Procedure Growth Status 03/07/25 23:40 Voided Urine Urine Culture - Final Complete Assessment/Plan Assessment/Plan 69-year-old male with a known history of CVA, diabetes mellitus type 2 insulin dependent, hypertension, dyslipidemia initially presented to the hospital with a generalized weakness dizziness found to have 1. Acute kidney injury suspected secondary to vasomotor nephropathy hemodynamically mediated 2. Metabolic acidosis secondary to acute kidney injury 3. Hyperglycemia in the setting of diabetes mellitus type 2 4. Elevated troponin suspect NSTEMI type 2 secondary to decreased renal clearance 5. Urinary tract infection with a hematuria 6. BPH 7. History of CVA 8. Noncompliance, patient has a refused Cardiolite stress test -IV bicarb drip, monitoring renal functioning, regular insulin sliding scale -Cardiolite stress test has been canceled because of patient's refusal -patient's says if director of billing can come back then she can give the consent for any Cardiolite stress test. Plan discussed with: Patient Date of Service: Mar 11, 2025 Billing Provider: SHUKRI MENDES MD Common Visit Codes: NOT BILLABLE SHUKRI MENDES MD Mar 11, 2025 17:47
[2025-03-12] VITALS (7 sets, daily range): BP systolic 128–140; BP diastolic 71–81; PULSE 72–83; RESP 17–18; TEMP 98–99.2; O2SAT 88–95
[2025-03-12 07:12] LABS: Anion Gap 15 (5-15); Chloride 104 mmol/L (98-107); Potassium 3.6 mmol/L (3.5-5.1); Sodium 137 mmol/L (136-145)
[2025-03-12 07:18] LABS: BUN/Creatinine Ratio 13.4 (10.0-20.0); Blood Urea Nitrogen 16 mg/dL (9-23)
[2025-03-12 07:20] LABS: Calcium 8.6 mg/dL (8.7-10.4); Carbon Dioxide 18 mmol/L (20-31); Glucose 222 mg/dL (74-106)
[2025-03-12 07:22] LABS: Hematocrit 37.9 % (41.0-53.0); Hemoglobin 12.2 g/dL (13.5-17.5); Mean Corpuscular Hemoglobin 30.7 pg (28.0-32.0); Mean Corpuscular Volume 95.1 fL (80.0-100.0); Nucleated Red Blood Cells % 0.0 %
--- NOTE | 2025-03-12 16:34 | DVHDS2 ---
Discharge Summary Date of Admission Mar 07, 2025 at 23:22 Date of Discharge: Mar 12, 2025 Labs/Diagnostic Data: Laboratory Results Test 03/12/25 05:37 03/10/25 17:51 03/08/25 12:06 03/08/25 05:55 White Blood Count 14.5 10^3/uL (4.4-10.8) Red Blood Count 3.99 10^6/uL (4.5-5.90) Hemoglobin 12.2 g/dL (13.5-17.5) Hematocrit 37.9 % (41.0-53.0) Mean Corpuscular Volume 95.1 fL (80.0-100.0) Mean Corpuscular Hemoglobin 30.7 pg (28.0-32.0) Mean Corpuscular Hemoglobin Concent 32.2 g/dL (32.0-36.0) Red Cell Distribution Width 14.8 % (11.8-14.3) Platelet Count 310 10^3/uL (140-450) Mean Platelet Volume 6.8 fL (6.9-10.8) Neutrophils (%) (Auto) 81.0 % (37.0-80.0) Lymphocytes (%) (Auto) 7.3 % (10.0-50.0) Monocytes (%) (Auto) 10.5 % (0.0-12.0) Eosinophils (%) (Auto) 1.2 % (0.0-7.0) Basophils (%) (Auto) 0.0 % (0.0-2.0) Neutrophils # (Auto) 11.7 10 ^3/uL (1.6-8.6) Lymphocytes # (Auto) 1.0 10 ^3/uL (0.4-5.4) Monocytes # (Auto) 1.5 10 ^3/uL (0-1.3) Eosinophils # (Auto) 0.2 10 ^3/uL (0-0.8) Basophils # (Auto) 0 10 ^3/uL (0-0.2) Nucleated Red Blood Cells 0.0 % Sodium Level 137 mmol/L (136-145) Potassium Level 3.6 mmol/L (3.5-5.1) Chloride Level 104 mmol/L (98-107) Carbon Dioxide Level 18 mmol/L (20-31) Anion Gap 15 (5-15) Blood Urea Nitrogen 16 mg/dL (9-23) Creatinine 1.19 mg/dL (0.700-1.30) Glomerular Filtration Rate Calc 66 mL/min (>90) BUN/Creatinine Ratio 13.4 (10.0-20.0) Serum Glucose 222 mg/dL (74-106) Calcium Level 8.6 mg/dL (8.7-10.4) POC Glucose 175 mg/dl (70-106) Troponin I High Sensitivity 188 ng/L (</=54) Triglycerides Level 177 mg/dL (< 150) Cholesterol Level 158 mg/dL (< 200) LDL Cholesterol 65 mg/dL (< 100) HDL Cholesterol 63 mg/dL (40-59) Thyroid Stimulating Hormone (TSH) 4.88 uIU/mL (0.55-4.78) Test 03/08/25 02:15 03/07/25 23:40 03/07/25 17:50 Hemoglobin A1c 8.7 % A1C (<5.7) Urine Color Colorless (Yellow) Urine Clarity Turbid (Clear) Urine pH 5.5 (5.0-9.0) Urine Specific [place] 1.014 (1.001-1.035) Urine Protein 1+ (Negative) Urine Ketones 1+ (Negative) Urine Blood 2+ /uL (Negative) Urine Nitrite Negative (Negative) Urine Bilirubin Negative (Negative) Urine Urobilinogen Normal mg/dL (Negative) Urine Leukocyte Esterase 3+ /uL (Negative) Urine RBC 6 /hpf (0 - 3) Urine Microscopic WBC 135 /HPF (0-3) Urine Squamous Epithelial Cells None seen /hpf (<5) Urine Bacteria Many /hpf (None Seen) Urine Hyaline Casts Few /lpf (0 - 2) Urine Mucus Few (None Seen) Urine Sperm Present /hpf (None Seen) Urine Creatinine 97.60 mg/dL (30.0-125.0) Urine Protein/Creatinine Ratio 0.95 Urine Sodium 16 mmol/L (40-220) Urine Glucose 4+ mg/dL (Normal) Urine Total Protein 92.3 mg/dL (1-14) Lactic Acid Level 1.5 mmol/L (0.4-2.0) Uric Acid 10.3 mg/dL (3.7-9.2) Phosphorus Level 3.3 mg/dL (2.4-5.1) Magnesium Level 2.1 mg/dL (1.6-2.6) B-Type Natriuretic Peptide 35.68 pg/mL (0-100) Amylase Level 168 U/L (30-118) Hepatitis B Surface Antigen Negative (Negative) Hepatitis C Antibody Negative (Negative) Other Laboratory Tests 03/12/25 05:37 Brief Hx & Hospital Course: 69-year-old male with a known history of CVA, diabetes mellitus type 2 insulin dependent, hypertension, dyslipidemia initially presented to the hospital with a generalized weakness dizziness found to have acute kidney injury suspected secondary to vasomotor nephropathy. Patient also has a metabolic acidosis secondary to acute kidney injury. Patient's has a elevated troponin suspected NSTEMI type 2 secondary to decreased renal clearance. Cardiology was consulted who recommended Cardiolite stress test but patient has refused. Patient's UTI was treated with the IV antibiotics. Patient is currently stable to be discharged as cardiology signed off outpatient stress test was recommended. Patient is being discharged under stable condition. Condition at Discharge: Stable Final Diagnosis/Problems List 69-year-old male with a known history of CVA, diabetes mellitus type 2 insulin dependent, hypertension, dyslipidemia initially presented to the hospital with a generalized weakness dizziness found to have 1. Acute kidney injury suspected secondary to vasomotor nephropathy hemodynamically mediated 2. Metabolic acidosis secondary to acute kidney injury 3. Hyperglycemia in the setting of diabetes mellitus type 2 4. Elevated troponin suspect NSTEMI type 2 secondary to decreased renal clearance 5. Urinary tract infection with a hematuria 6. BPH 7. History of CVA 8. Noncompliance, patient has a refused Cardiolite stress test Discharge Disposition: Home with Health Services [facility] Discharge Will this Physician continue t: No Discharge Instruct/Medications Diet: Cardiac 2g Na,low cholest Diet comment: 1800 ADA diet Activity: No Restrictions, As Tolerated Follow Up/Referral: Please follow up with the PCP in one week Follow up with the Cardiology Dr. Michael in one week for outpatient stress test. Medications: Resume Continued Medications: Alendronate Sodium (Alendronate Sodium) 70 Mg Tab 1 TAB PO QWEEKLY, #4 TAB 3 Refills Ascorbic Acid (Vitamin C) 100 Mg Chw 100 MG PO, TAB.CHEW Aspirin (Aspirin Low Dose) 81 Mg Tab 81 MG PO DAILY for 60 Days, #60 TAB Atorvastatin Calcium (Atorvastatin Calcium) 20 Mg Tab 40 MG PO HS, #60 TAB Clopidogrel Bisulfate (Clopidogrel) 75 Mg Tab 75 MG PO DAILY for 60 Days, #60 TAB Furosemide (Furosemide) 20 Mg Tab 1 TAB PO DAILY, #90 TAB 1 Refill Gabapentin (Gabapentin) 100 Mg Cap 1 CAP PO TID, #90 CAP 2 Refills Insulin Glargine (Lantus Solostar) 100 Unit/Ml Inj SC Levothyroxine Sodium (Levothyroxine Sodium) 25 Mcg Tab Metoprolol Tartrate (Lopressor) 25 Mg Tb 25 MG PO BID for 60 Days, #120 TAB Vitamin B12 (Vitamin B-12) 1,000 Mcg/1 Ml Ij 1000 MCG IM, INJ Zinc Gluconate (Zinc) 10 Mg Kassidy 10 MG PO Scheduled Alendronate Sodium (Alendronate Sodium), 1 TAB PO QWEEKLY, (Reported) Aspirin (Aspirin Low Dose), 81 MG PO DAILY Atorvastatin Calcium (Atorvastatin Calcium), 40 MG PO HS Clopidogrel Bisulfate (Clopidogrel), 75 MG PO DAILY Furosemide (Furosemide), 1 TAB PO DAILY, (Reported) Gabapentin (Gabapentin), 1 CAP PO TID, (Reported) Metoprolol Tartrate (Lopressor), 25 MG PO BID Miscellaneous Medications Ascorbic Acid (Vitamin C), 100 MG PO, (Reported) Insulin Glargine (Lantus Solostar), SC, (Reported) Levothyroxine Sodium (Levothyroxine Sodium), (Reported) Vitamin B12 (Vitamin B-12), 1,000 MCG IM, (Reported) Zinc Gluconate (Zinc), 10 MG PO, (Reported) Discharge Statement: "Patient was advised to return to the ER or call 911 if any headaches, dizziness, shortness of breath, chest pain, abdominal pain, bleeding, fevers, or worsening of medical condition. Patient was counseled about treatment plan, medications, possible side effects, patientverbalized understanding. All questions were answered to the best of my ability. This discharge took greater then 30 minutes in planning, reviewing documentation, counseling the patient, and discussing with other team members." ASSESSMENT ASSESSMENT Assessment 69-year-old male with a known history of CVA, diabetes mellitus type 2 insulin dependent, hypertension, dyslipidemia initially presented to the hospital with a generalized weakness dizziness found to have 1. Acute kidney injury suspected secondary to vasomotor nephropathy hemodynamically mediated 2. Metabolic acidosis secondary to acute kidney injury 3. Hyperglycemia in the setting of diabetes mellitus type 2 4. Elevated troponin suspect NSTEMI type 2 secondary to decreased renal clearance 5. Urinary tract infection with a hematuria 6. BPH 7. History of CVA 8. Noncompliance, patient has a refused Cardiolite stress test Date of Service: Mar 12, 2025 Billing Provider: SHUKRI MENDES MD Common Visit Codes: NOT BILLABLE SHUKRI MENDES MD Mar 12, 2025 16:34
== END 2025-03-12 19:55 | disposition home health service (06) | DRG 682 ==
LOC: EDBD 13:54 → ER 13:54 → OVERFLOW 23:22 → EDUNIT# 23:22 → TELE-WESTW 03-08 21:02
PROVIDERS: ADMIT Internal Medicine; ATTEND Internal Medicine
DX: N17.0 Acute kidney failure with tubular necrosis (principal); E11.10 Type 2 diabetes mellitus with ketoacidosis without coma; I21.A1 Myocardial infarction type 2; K85.90 Acute pancreatitis without necrosis or infection, unspecified; N39.0 Urinary tract infection, site not specified; E11.22 Type 2 diabetes mellitus with diabetic chronic kidney disease; I12.9 Hypertensive chronic kidney disease with stage 1 through stage 4 chronic kidney disease, or unspecified chronic kidney disease; N18.9 Chronic kidney disease, unspecified; Z68.1 Body mass index [BMI] 19.9 or less, adult; N40.0 Benign prostatic hyperplasia without lower urinary tract symptoms; E86.0 Dehydration; E78.5 Hyperlipidemia, unspecified; R31.9 Hematuria, unspecified; F17.210 Nicotine dependence, cigarettes, uncomplicated; Z53.20 Procedure and treatment not carried out because of patient's decision for unspecified reasons; R62.7 Adult failure to thrive; I25.10 Atherosclerotic heart disease of native coronary artery without angina pectoris; I25.2 Old myocardial infarction; Z91.199 Patient's noncompliance with other medical treatment and regimen due to unspecified reason; Z86.74 Personal history of sudden cardiac arrest; Z86.73 Personal history of transient ischemic attack (TIA), and cerebral infarction without residual deficits; Z79.4 Long term (current) use of insulin; Z79.899 Other long term (current) drug therapy; Z79.82 Long term (current) use of aspirin
CPT/HCPCS: 36415; 71045; 76775; 80048; 80061; 81001; 82150; 82570; 82962; 83036; 83605; 83735; 83880; 84100; 84156; 84300; 84443; 84484; 84550; 85025; 86803; 87086; 87340; 93005; 93306; 96361; 96374; 97110; 97163; 97530; G0378; J1815; J2405; J3480